=== PATIENT | male | born 1980 | race Caucasian/White ===

== ENCOUNTER 2020-09-10 02:42 | Inpatient (IN) | payer MEDICAID, SELFPAY ==
[2020-09-10] VITALS (8 sets, daily range): BP systolic 129–174; BP diastolic 72–95; PULSE 66–103; RESP 16–22; TEMP 36.5–37; O2SAT 95–97; BMI 27.1; BMI 26.5
[2020-09-10 03:13] LABS: Absolute Lymphocyte Count 2.68 X10^3/uL (0.83-4.51); Absolute Neutrophil Count 6.1 X10^3/uL (2.0-7.7); Basophil# 0.09 X10^3/uL; Basophil% 0.9 % (0-1); Eosinophil# 0.13 X10^3/uL; Eosinophils% 1.3 % (0-5); Hematocrit 44.3 % (40-54); Hemoglobin 15.1 g/dL (13.0-16.5); Lymphocyte # 2.68 X10^3/ul (0.83-4.51); Lymphocyte % 27.8 % (19-41); Mean Corp Hgb Conc 34.1 g/dL (32-36); Mean Corpuscular Hgb 31.5 pg (27.0-32.0); Mean Corpuscular Volume 92.5 fL (80-94); Mean Platelet Vol. 9.2 fl (6.2-12.0); Monocyte# 0.58 X10^3/uL; NRBC Flagged by Analyzer 0 % (0-5); Neutrophil # 6.13 X10^3/uL (2.7-7.7); Neutrophil % 63.8 % (47-70); Platelet Count 258 K/mm3 (150-450); RBC Distribution Width CV 13.4 % (11.6-14.6); RBC Distribution Width SD 46.1 fl (35.1-43.9); Red Blood Count 4.79 M/mm3 (4.6-6.2); White Blood Count 9.6 K/mm3 (4.4-11.0)
--- NOTE | 2020-09-10 03:19 | ED.RN ---
PT ADMITTED TO BEING IN THE PROGRAM FOR 7 MONTHS AND WAS SOBER FOR THE FIRST COUPLE OF MONTHS, PT THEN STATED HE STARTED DRINKING ETOH WHILE AT THE [facility] HOUSE, THEN LEFT FOR A HOTEL AND DRANK NONSTOP.
--- NOTE | 2020-09-10 03:24 | EX.ED.SAOD ---
HPI History of Present Illness Chief Complaint: Substance Abuse Informant: patient Narrative Narrative: Patient is a 40-year-old male with history of alcohol abuse presenting for alcohol detox. Patient states he is on a duncan drinking least 30 beers a day plus liquor for the past 5 days. He states before that he been drinking daily for the past few months. Patient been at a nursing home house for sobriety but states he been drinking at the house for the past few months. Patient states his last drink was this afternoon. He started to have some nausea and dry heaves. He complained of slight tremors. He states he feels little confused. Patient denies any abdominal pain. He denies any drug use. He does smoke at least a pack of cigarettes a day. No other complaints at this time. PFSH PFS Medical History Alcohol abuse Home Medications NK 09/10/20 [History Last Taken Unknown] Allergy/AdvReac Type Severity Reaction Status Date / Time No Known Allergies Allergy Verified 09/10/20 02:45 Social History Smoking Status: Current every day smoker tobacco type: cigarettes ROS ROS ED Constitutional Constitutional ED: Reports sweats; Denies chills, fever(s) or malaise Eyes Eyes: Denies blurry vision or loss of vision ENT ENT ED: Denies rhinorrhea or sore throat Cardiovascular Cardiovascular: Denies chest pain or dizziness Respiratory/Chest Respiratory/Chest: Denies cough or dyspnea Gastrointestinal Gastrointestinal: Reports nausea; Denies abdominal pain or vomiting Genitourinary Genitourinary ED: Denies dysuria or hematuria Musculoskeletal Musculoskeletal: Denies arthralgias or myalgias Integumentary Denies rash or wounds Neurologic Neurologic: Reports other Details: Confusion, tremor ; Denies focal weakness or headache(s) Psychiatric Psychiatric: Denies anxiety or behavioral changes EXAM Physical Exam Const Vital Signs: 09/10/20 02:42 09/10/20 02:48 Temperature 98.4 F 98.4 F Temperature Source Temporal Temporal Pulse Rate 95 95 Respiratory Rate 22 H 22 H Blood Pressure 165/91 H 165/91 H Blood Pressure Mean 115 115 Pulse Ox 96 96 Oxygen Delivery Method Room Air Positive well nourished, well developed and no apparent distress General Appearance ED: well developed HEENT Reports normocephalic and moist mucous membranes atraumatic Nose: no nasal discharge General Ear: hearing grossly impaired External Ear: external ears normal Mouth ED: Yes moist mucous membranes abnormal Mouth: moist mucous membranes abnormal Eyes PERRL and EOMs intact bilaterally Neck full ROM, supple and no meningeal signs Chest Wall inspection of chest normal Resp normal respiratory effort and normal air movement Cardio regular rate and regular rhythm GI normal to inspection, nondistended, normoactive bowel sounds, soft to palpation and non-tender Extremity normal to inspection and full ROM Neuro oriented x3 and no focal motor deficits Neuro Narrative: Slightly tremulous on exam. Sensorium / Orientation: alert; Negative for confused Psych mental status grossly normal and thought process normal Skin no rashes or lesions noted and no wounds General Skin Exam: Negative for jaundice Lesions: no lesions Rashes: no rashes MDM MDM MDM Narrative Medical decision making narrative: Patient evaluated for alcohol withdrawal. Its been about 12 hours since his last drink. Patient is hypertensive and mildly tachycardic. He is mildly tremulous. I suspect he is an early alcohol withdrawal. He is given a dose of phenobarb in the emergency room. Screening labs are obtained and patient will be admitted to medicine service for inpatient detox. Patient is agreeable with this plan. He does understand the rules of inpatient detox. Lab Data Labs: Laboratory Results - last 24 hr 09/10/20 09/10/20 09/10/20 02:46 03:02 03:02 WBC 9.6 RBC 4.79 Hgb 15.1 Hct 44.3 MCV 92.5 MCH 31.5 MCHC 34.1 RDW Std Deviation 46.1 H RDW Coeff of Mary 13.4 Plt Count 258 MPV 9.2 Immature Gran % (Auto) 0.200 Neut % (Auto) 63.8 Lymph % (Auto) 27.8 [place] % (Auto) 6.0 Eos % (Auto) 1.3 Baso % (Auto) 0.9 Absolute Neuts (auto) 6.1 Absolute Lymphs (auto) 2.68 Nucleated RBC % 0 Sodium 138 Potassium 3.9 Chloride 102 Carbon Dioxide 27.0 Anion Gap 9 BUN 10 Creatinine 0.80 Estim Creat Clear Calc 104.83 Est GFR (MDRD) Af Amer 138 Est GFR (MDRD) Non-Af 114 BUN/Creatinine Ratio 12.4 Glucose 95 Calcium 8.6 Total Bilirubin 0.80 AST 146 H ALT 196 H Alkaline Phosphatase 84 Total Protein 7.2 Albumin 4.0 Globulin 3.2 Albumin/Globulin Ratio 1.2 Urine Opiates Screen NEGATIVE Urine Methadone Screen NEGATIVE Ur Barbiturates Screen NEGATIVE Ur Phencyclidine Scrn NEGATIVE Ur Amphetamines Screen NEGATIVE U Methamphetamin-MDMA NEGATIVE U Benzodiazepines Scrn NEGATIVE Urine Cocaine Screen NEGATIVE U Cannabinoids Screen NEGATIVE Ur Drug Screen Comment Ethyl Alcohol 09/10/20 03:02 WBC RBC Hgb Hct MCV MCH MCHC RDW Std Deviation RDW Coeff of Mary Plt Count MPV Immature Gran % (Auto) Neut % (Auto) Lymph % (Auto) [place] % (Auto) Eos % (Auto) Baso % (Auto) Absolute Neuts (auto) Absolute Lymphs (auto) Nucleated RBC % Sodium Potassium Chloride Carbon Dioxide Anion Gap BUN Creatinine Estim Creat Clear Calc Est GFR (MDRD) Af Amer Est GFR (MDRD) Non-Af BUN/Creatinine Ratio Glucose Calcium Total Bilirubin AST ALT Alkaline Phosphatase Total Protein Albumin Globulin Albumin/Globulin Ratio Urine Opiates Screen Urine Methadone Screen Ur Barbiturates Screen Ur Phencyclidine Scrn Ur Amphetamines Screen U Methamphetamin-MDMA U Benzodiazepines Scrn Urine Cocaine Screen U Cannabinoids Screen Ur Drug Screen Comment Ethyl Alcohol 56.0 Discharge Plan Dx/Rx/DC Orders Clinical Impression: Alcohol dependence Disposition Disposition: Acute Care Hospital [facility] Discharge Date/Time: 09/10/20 04:24
[2020-09-10 03:51] LABS: ALB/GLOB Ratio 1.2 RATIO (0.9-2.4); AST(SGOT) 146 U/L (15-37); Alanine Aminotransfer ALT/SGPT 196 U/L (16-61); Alkaline Phosphatase 84 U/L (45-117); Anion Gap 9 (5-15); BUN 10 mg/dL (7-18); BUN/Creat Ratio 12.4 RATIO (10-20); Calcium,Total 8.6 mg/dL (8.5-10.1); Chloride 102 mmol/L (98-107); EST Glomerular Filtration Rate 114 mL/min (>60); Est Glom Filt Rate - Afr Amer 138 mL/min (>60); Estimated Creatinine Clearance 104.83 ml/min; Globulin 3.2 g/dL (2.2-4.2); Glucose 95 mg/dL (74-106); Potassium 3.9 mmol/L (3.5-5.1); Protein, Total 7.2 g/dL (6.4-8.2); Sodium Level 138 mmol/L (136-145)
--- NOTE | 2020-09-10 04:02 | PCM.HP.STD ---
[facility] - General General Date of Admission: 09/10/20 Date of Service: 09/10/20 Chief Complaint: Requesting admission for acute alcohol withdrawal. HPI Narrative OSVALDO VASQUES, is a 40 M with past medical history as mentioned below presented to the emergency room requesting admission for acute alcohol withdrawal for medical stabilization. Patient stated that he has been drinking at least 50 beers a day for the last 5 days. Before that, he was at [facility] but he has been drinking at the house to for the past several months. He mentioned that his last drink was yesterday afternoon. He complained of nausea and dry heaves, no associated abdominal pain. He complained of tremors and anxiety as well as restlessness. He denied abdominal pain. He denied use of recreational drugs. In the emergency department, blood pressure was like elevated, other vital signs were stable. Routine blood work was unremarkable. LFT revealed slightly elevated liver transaminases, bilirubin and alk phos are normal. Urine drug screen is pending. Blood alcohol level is 56. Patient is being admitted for acute alcohol withdrawal for medical stabilization. [facility] Medical History Alcohol abuse Allergy/AdvReac Type Severity Reaction Status Date / Time No Known Allergies Allergy Verified 09/10/20 02:45 no significant family history no surgical history Social History Smoking Status: Current every day smoker tobacco type: cigarettes ROS Constitutional Constitutional: Reports malaise; Denies anorexia, chills, fatigue or fever(s) Eyes Eyes: Denies blurry vision, change in eye color, change in vision, double vision or eye pain ENT HEENT: Denies ear pain, epistaxis, headache(s), nasal congestion, post nasal drip or sore throat Cardiovascular Cardiovascular: Denies chest pain, dyspnea on exertion, edema, lightheadedness, palpitations or syncope Respiratory/Chest Respiratory/Chest: Denies cough, dyspnea, hemoptysis, productive cough, shortness of breath at rest, shortness of breath with exertion or wheezing Gastrointestinal Gastrointestinal: Reports nausea; Denies abdominal pain, constipation, diarrhea, hematemesis, hematochezia, melena or vomiting Genitourinary Genitourinary: Denies burning urination, dysuria, hematuria, urinary hesitancy or urinary urgency Musculoskeletal Musculoskeletal: Denies arthralgias, back pain, joint pain, joint swelling, myalgias or neck pain Neurologic Neurologic: Reports tremor(s); Denies confusion, dizziness, focal weakness, headache(s), numbness, paresthesias, seizures or tingling Psychiatric Psychiatric: Denies anxiety, depression, hallucinations, homicidal ideation or suicidal ideation Endocrine Endocrinology: Denies change in body appearance, cold intolerance, heat intolerance, polydipsia or polyuria Hematologic/Lymphatic Hematologic/Lymphatic: Denies easy bleeding, easy bruising or lymphadenopathy Allergic/Immunologic Allergic/Immunologic: Denies itchy eyes, rhinitis, throat swelling, tongue swelling, hives, urticaria or wheezing Vital Signs Vital Signs Vital Signs: 09/10/20 02:42 09/10/20 02:48 Temperature 98.4 F 98.4 F Temperature Source Temporal Temporal Pulse Rate 95 95 Respiratory Rate 22 H 22 H Blood Pressure 165/91 H 165/91 H Blood Pressure Mean 115 115 Pulse Ox 96 96 Oxygen Delivery Method Room Air Weight Weight: 158 lb 8.198 oz Body Mass Index (BMI) 27.1 Physical Exam Const alert, oriented x3, no apparent distress and no limitations General Appearance: cooperative, comfortable and well kempt HEENT normocephalic, head/scalp atraumatic and moist oral mucous membranes Head and Scalp: normocephalic and atraumatic Eyes PERRL, EOMs intact bilaterally, conjunctivae normal and no scleral icterus General Eye: normal appearance of both eyes Periorbital: periorbital findings normal Neck no lymphadenopathy, supple, no meningeal signs, no JVD and no carotid bruits General: trachea midline Thyroid: thyroid normal Resp normal respiratory effort, normal air movement and clear to auscultation bilaterally Auscultation: Negative for crackles, rales, rhonchi or wheezes Cardio regular rate, regular rhythm, S1 normal heart sound, S2 normal heart sound, no murmurs and no JVD Peripheral Pulses: pulses 2+ throughout GI normal to inspection, nondistended, normoactive bowel sounds, soft to palpation, non-tender and non-distended; Negative for hepatosplenomegaly Auscultation: normoactive bowel sounds Extremity normal to inspection, full ROM and no clubbing, cyanosis or edema Skin no rashes or lesions noted, no wounds and no petechiae Neuro oriented x3, CN's II-XII intact bilaterally and moves all extremities Sensorium / Orientation: alert Speech: speech normal Motor Exam: strength 5/5 throughout Psych mental status grossly normal, affect normal and denies hallucinations Lab / Micro Data Result Diagrams: 09/10/20 03:02 09/10/20 03:02 Labs: Laboratory Results - last 24 hr 09/10/20 09/10/20 09/10/20 02:46 03:02 03:02 WBC 9.6 RBC 4.79 Hgb 15.1 Hct 44.3 MCV 92.5 MCH 31.5 MCHC 34.1 RDW Std Deviation 46.1 H RDW Coeff of Mary 13.4 Plt Count 258 MPV 9.2 Immature Gran % (Auto) 0.200 Neut % (Auto) 63.8 Lymph % (Auto) 27.8 [place] % (Auto) 6.0 Eos % (Auto) 1.3 Baso % (Auto) 0.9 Absolute Neuts (auto) 6.1 Absolute Lymphs (auto) 2.68 Nucleated RBC % 0 Sodium 138 Potassium 3.9 Chloride 102 Carbon Dioxide 27.0 Anion Gap 9 BUN 10 Creatinine 0.80 Estim Creat Clear Calc 104.83 Est GFR (MDRD) Af Amer 138 Est GFR (MDRD) Non-Af 114 BUN/Creatinine Ratio 12.4 Glucose 95 Calcium 8.6 Total Bilirubin 0.80 AST 146 H ALT 196 H Alkaline Phosphatase 84 Total Protein 7.2 Albumin 4.0 Globulin 3.2 Albumin/Globulin Ratio 1.2 Ur Drug Screen Comment Ethyl Alcohol 09/10/20 03:02 WBC RBC Hgb Hct MCV MCH MCHC RDW Std Deviation RDW Coeff of Mary Plt Count MPV Immature Gran % (Auto) Neut % (Auto) Lymph % (Auto) [place] % (Auto) Eos % (Auto) Baso % (Auto) Absolute Neuts (auto) Absolute Lymphs (auto) Nucleated RBC % Sodium Potassium Chloride Carbon Dioxide Anion Gap BUN Creatinine Estim Creat Clear Calc Est GFR (MDRD) Af Amer Est GFR (MDRD) Non-Af BUN/Creatinine Ratio Glucose Calcium Total Bilirubin AST ALT Alkaline Phosphatase Total Protein Albumin Globulin Albumin/Globulin Ratio Ur Drug Screen Comment Ethyl Alcohol 56.0 Assessment & Plan Assessment/Plan (1) Tobacco abuse: (2) Alcohol dependence: (3) Acute hyperactive alcohol withdrawal delirium: (4) Elevated LFTs: PLAN: This is a 40 years old male patient presented to the emergency room requesting admission for acute alcohol withdrawal for medical stabilization. #1 acute alcohol withdrawal: Admit to MedSurg floor, initiate alcohol withdrawal protocol with tapering phenobarbital, thiamine folic acid supplement, as needed Bentyl, gabapentin, Vistaril, Imodium, Loperamide, Zofran and trazodone, consult 180 program. #2 elevated LFT: This is likely due to alcoholic hepatitis. Bilirubin and alk phos are normal. Plan to monitor. #3 tobacco abuse: NicoDerm patch. #4 DVT prophylaxis: Low risk patient, no prophylaxis indicated. This note was generated with [employer] dictation software. It may contain incorrect words, spelling, and punctuation that were not noted in checking the note before signing. Visit Charges Inpatient E&M: 41178 Init Hosp L2
[2020-09-10] MEDS: Phenobarbital 32.4 MG Tablet 97.2 MG PO (04:11)
[2020-09-10 04:13] LABS: Amphetamine Urine VISTA NEGATIVE (<1000 ng/mL); Barbiturate Urine VISTA NEGATIVE (< 200 ng/mL); Benzodiazepine Urine VISTA NEGATIVE (< 200 ng/mL); Cocaine Urine VISTA NEGATIVE (< 300 ng/mL); Ecstacy Urine VISTA NEGATIVE (< 500 ng/mL); Methadone Urine VISTA NEGATIVE (< 300 ng/mL); PCP Urine VISTA NEGATIVE (< 25 ng/mL); THC Urine VISTA NEGATIVE (< 50 ng/mL); Vista UDS pH Range 5
[2020-09-10] MEDS: hydrOXYzine PAM 25 MG Capsule 50 MG PO (05:19)
[2020-09-10] MEDS: Dicyclomine 10 MG Capsule 20 MG PO (05:19)
[2020-09-10] MEDS: Gabapentin 300 MG Capsule PO (05:19)
[2020-09-10] MEDS: Phenobarbital 32.4 MG Tablet PO ×4 (09:40→20:45)
[2020-09-10] MEDS: Folic Acid 1 MG Tablet PO (09:41)
[2020-09-10] MEDS: Thiamine Hydrochloride 100 MG Tablet PO (09:41)
--- NOTE | 2020-09-10 12:06 | CASEMGMT ---
Social Work Note Pt is RAMP pt. Pt is also self-pay. SW in to speak with pt. SW introduced self and role at [facility]. Pt confirms he has no insurance, states he was working at [employer] up until 5 days ago. Pt states [employer] offers insurance but he was not on their insurance but he is able to get their insurance. Pt states he hasn't applied for Medicaid. SW provided pt with financial resources including Medicaid Application, RX assistance programs, HCAP application, Rx good assist and Prescription Hope. FLACO unable to provide pt with [facility] resources as pt is not a resident of [facility]. FLACO spoke with Chepe from [facility]. Plan is for pt to direct admit to [facility] Sunday where staff will assist pt in getting Medicaid Application completed. Anette Vaughan MD PEDIATRIC ALLERGIST, BURN OUT SCARFING OPERATOR
--- NOTE | 2020-09-10 12:25 | ADDICTION ---
This account underwriter met with PT to conduct ASAM, MSE, AMMY, AUDIT assessments and to plan for d/c. PT A+Ox4 and participated actively. All assessments completed, faxed to [facility] and placed in PT's chart. PT plans to f/u with individual counselor for an assessment to be admitted to [facility] for residential treatment services. PT indicated a need for transportation post d/c from [facility]. This account underwriter set up transportation through [facility] senior it specialist.
--- NOTE | 2020-09-10 13:38 | PN.HOSP_ITS ---
Subjective Subjective Feeling tired and anxious. Objective Data Objective Data Vital Signs: Vital Signs Temp Pulse Resp BP Pulse Ox 37.0 C 80 18 149/72 H 95 09/10/20 12:44 09/10/20 12:44 09/10/20 12:44 09/10/20 12:44 09/10/20 12:44 Oxygen Delivery Method Room Air Weight: 70.1 kg Body Mass Index (BMI) 26.5 Lab / Micro Data Attestation: I reviewed the patient's lab results. Result Diagrams: 09/10/20 03:02 09/10/20 03:02 Labs: Laboratory Results - last 24 hr 09/10/20 09/10/20 09/10/20 02:46 03:02 03:02 WBC 9.6 RBC 4.79 Hgb 15.1 Hct 44.3 MCV 92.5 MCH 31.5 MCHC 34.1 RDW Std Deviation 46.1 H RDW Coeff of Mary 13.4 Plt Count 258 MPV 9.2 Immature Gran % (Auto) 0.200 Neut % (Auto) 63.8 Lymph % (Auto) 27.8 [place] % (Auto) 6.0 Eos % (Auto) 1.3 Baso % (Auto) 0.9 Absolute Neuts (auto) 6.1 Absolute Lymphs (auto) 2.68 Nucleated RBC % 0 Sodium 138 Potassium 3.9 Chloride 102 Carbon Dioxide 27.0 Anion Gap 9 BUN 10 Creatinine 0.80 Estim Creat Clear Calc 104.83 Est GFR (MDRD) Af Amer 138 Est GFR (MDRD) Non-Af 114 BUN/Creatinine Ratio 12.4 Glucose 95 Calcium 8.6 Total Bilirubin 0.80 AST 146 H ALT 196 H Alkaline Phosphatase 84 Total Protein 7.2 Albumin 4.0 Globulin 3.2 Albumin/Globulin Ratio 1.2 Urine Opiates Screen NEGATIVE Urine Methadone Screen NEGATIVE Ur Barbiturates Screen NEGATIVE Ur Phencyclidine Scrn NEGATIVE Ur Amphetamines Screen NEGATIVE U Methamphetamin-MDMA NEGATIVE U Benzodiazepines Scrn NEGATIVE Urine Cocaine Screen NEGATIVE U Cannabinoids Screen NEGATIVE Ur Drug Screen Comment Ethyl Alcohol 09/10/20 03:02 WBC RBC Hgb Hct MCV MCH MCHC RDW Std Deviation RDW Coeff of Mary Plt Count MPV Immature Gran % (Auto) Neut % (Auto) Lymph % (Auto) [place] % (Auto) Eos % (Auto) Baso % (Auto) Absolute Neuts (auto) Absolute Lymphs (auto) Nucleated RBC % Sodium Potassium Chloride Carbon Dioxide Anion Gap BUN Creatinine Estim Creat Clear Calc Est GFR (MDRD) Af Amer Est GFR (MDRD) Non-Af BUN/Creatinine Ratio Glucose Calcium Total Bilirubin AST ALT Alkaline Phosphatase Total Protein Albumin Globulin Albumin/Globulin Ratio Urine Opiates Screen Urine Methadone Screen Ur Barbiturates Screen Ur Phencyclidine Scrn Ur Amphetamines Screen U Methamphetamin-MDMA U Benzodiazepines Scrn Urine Cocaine Screen U Cannabinoids Screen Ur Drug Screen Comment Ethyl Alcohol 56.0 Physical Exam Const alert Resp normal respiratory effort, no use of accessory muscles and clear to auscultation bilaterally Cardio regular rate, regular rhythm, S1 normal heart sound and S2 normal heart sound GI normal to inspection, nondistended, normoactive bowel sounds, non-tender and non-distended Assessment & Plan Assessment/Plan (1) Alcohol dependence: PLAN: 1. acute alcohol withdrawal * continue phenobarbital taper * continue medica tmt for other somatic complaints. * plan for pt to go [facility] on 09/14/2020 at 0900 2. VTE prophylaxis: low risk. Visit Charges Inpatient E&M: 70756 Subs Hosp L2
[2020-09-11] VITALS (7 sets, daily range): BP systolic 123–155; BP diastolic 63–86; PULSE 70–84; RESP 16–18; TEMP 36.4–37.1; O2SAT 95–99
[2020-09-11] MEDS: Phenobarbital 32.4 MG Tablet PO ×6 (00:40→19:28)
[2020-09-11] MEDS: Thiamine Hydrochloride 100 MG Tablet PO (09:11)
[2020-09-11] MEDS: Folic Acid 1 MG Tablet PO (09:11)
--- NOTE | 2020-09-11 13:10 | PN.HOSP_ITS ---
Subjective Subjective No hallucinations. No tremors. Feels groggy from phenobarbital. Objective Data Objective Data Vital Signs: Vital Signs Temp Pulse Resp BP Pulse Ox 36.7 C 84 18 124/77 H 98 09/11/20 09:13 09/11/20 09:13 09/11/20 09:13 09/11/20 09:13 09/11/20 09:13 Oxygen Delivery Method Room Air Weight: 70.1 kg Body Mass Index (BMI) 26.5 Intake & Output: Intake and Output for Last 24 Hours 09/09/20 09/10/20 09/11/20 23:59 23:59 23:59 Intake Total 620 / 1420 1480 / 1480 Balance 620 / 1420 1480 / 1480 Lab / Micro Data Result Diagrams: 09/10/20 03:02 09/10/20 03:02 Physical Exam Const alert HEENT Head and Scalp: normocephalic Resp normal respiratory effort and clear to auscultation bilaterally Cardio regular rate, regular rhythm, S1 normal heart sound and S2 normal heart sound GI normal to inspection, nondistended, normoactive bowel sounds, non-tender and non-distended Assessment & Plan Assessment/Plan (1) Alcohol dependence: QUALIFIERS: Substance use status: uncomplicated Qualified Code(s): F10.20 - Alcohol dependence, uncomplicated PLAN: 1. acute alcohol withdrawal * continue phenobarbital taper * continue medica tmt for other somatic complaints. * plan for pt to go [facility] on 09/14/2020 at 0900 2. VTE prophylaxis: low risk. Visit Charges Inpatient E&M: 50697 Subs Hosp L1
[2020-09-11] MEDS: Nicotine Polacrilex 2 MG GUM PO (19:51)
[2020-09-12 00:57] VITALS: BP 128/65; PULSE 97; RESP 16; TEMP 36.6; O2SAT 98
[2020-09-12] MEDS: Phenobarbital 32.4 MG Tablet PO ×6 (00:58→23:35)
[2020-09-12 04:28] VITALS: BP 118/65; PULSE 56; RESP 16; TEMP 36.6; O2SAT 97
[2020-09-12 08:46] VITALS: BP 127/64; PULSE 75; RESP 18; TEMP 36.7; O2SAT 97
[2020-09-12] MEDS: Folic Acid 1 MG Tablet PO (08:59)
[2020-09-12] MEDS: Thiamine Hydrochloride 100 MG Tablet PO (08:59)
[2020-09-12 10:00] VITALS: BP 127/64; PULSE 75; RESP 18; TEMP 36.7; O2SAT 75
--- NOTE | 2020-09-12 12:04 | PN.HOSP_ITS ---
Subjective Subjective No events overnight. Patient otherwise feels well. No tremors. Objective Data Objective Data Vital Signs: Vital Signs Temp Pulse Resp BP Pulse Ox 36.7 C 75 18 127/64 H 97 09/12/20 08:46 09/12/20 08:46 09/12/20 08:46 09/12/20 08:46 09/12/20 08:46 Oxygen Delivery Method Room Air Weight: 70.1 kg Body Mass Index (BMI) 26.5 Intake & Output: Intake and Output for Last 24 Hours 09/10/20 09/11/20 09/12/20 23:59 23:59 23:59 Intake Total 620 / 1420 1959 Balance 620 / 1420 1959 Lab / Micro Data Result Diagrams: 09/10/20 03:02 09/10/20 03:02 Physical Exam Const alert and oriented x3 Constitutional Narrative: Up in chair. No respiratory distress. No conversational dyspnea. No diaphoresis. Psych affect normal Assessment & Plan Assessment/Plan (1) Alcohol dependence: QUALIFIERS: Substance use status: uncomplicated Qualified Code(s): F10.20 - Alcohol dependence, uncomplicated PLAN: 1. acute alcohol withdrawal * continue phenobarbital taper through today and then discontinue. I do not has been any worsening withdrawal symptoms. * continue medical tmt for other somatic complaints. * plan for pt to go [facility] on 09/14/2020 at 0900 * After patient has completed his phenobarbital, I feel the patient can safely walk through the hallways. Patient advised not to leave the floor and if he does so he would be leaving AGAINST MEDICAL ADVICE and would not be re admitted. He expressed understanding for that. And told him once he is cleared his phenobarbital that he can have his box is open. I feel patient is a low risk of abusing these permissions and he seems very engaged in his recovery. * Patient will need to stay until the first as he is from a alf house and apparently there was a words exchanged with the litharge mill operator of the house so the patient would not be really able to return there. The patient will stay until the first where he can enroll in the [facility] residential program. 2. VTE prophylaxis: low risk. Visit Charges Inpatient E&M: 63957 Subs Hosp L1
[2020-09-12 14:40] VITALS: BP 138/76; PULSE 71; RESP 18; TEMP 36.7; O2SAT 97
[2020-09-12 20:19] VITALS: BP 140/72; PULSE 78; RESP 16; TEMP 37; O2SAT 97
[2020-09-13] MEDS: Phenobarbital 32.4 MG Tablet PO ×4 (04:07→21:41)
[2020-09-13] MEDS: Thiamine Hydrochloride 100 MG Tablet PO (07:36)
[2020-09-13] MEDS: Folic Acid 1 MG Tablet PO (07:37)
[2020-09-13 08:39] VITALS: BP 122/69; PULSE 63; RESP 18; TEMP 36.6; O2SAT 98
--- NOTE | 2020-09-13 08:57 | PCM.PN.HOSP ---
Subjective Subjective Patient is a 40-year-old gentleman with history of alcohol dependence presented with acute alcohol withdrawal Objective Data Objective Data Vital Signs: Vital Signs Temp Pulse Resp BP Pulse Ox 97.8 F 63 18 122/69 H 98 09/13/20 08:39 09/13/20 08:39 09/13/20 08:39 09/13/20 08:39 09/13/20 08:39 Oxygen Delivery Method Room Air Weight: 70.1 kg Body Mass Index (BMI) 26.5 Intake & Output: Intake and Output for Last 24 Hours 09/11/20 09/12/20 09/13/20 23:59 23:59 23:59 Intake Total 1959 450 / 950 800 / 800 Balance 1959 450 / 950 800 / 800 Lab / Micro Data Result Diagrams: 09/10/20 03:02 09/10/20 03:02 Physical Exam Narrative GENERAL: cooperative HEENT: Atraumatic; EYES; Anicteric, Normal Conjunctiva NECK; supple, normal thyroid, RESPIRATORY: Diminished to auscultation CARDIOVASCULAR: Regular S1 S2, GI: soft, normoactive bowel sounds, : No Renal angle tenderness; EXTREMITIES: No edema, no clubbing, MUSCULOSKELETAL: no muscle waisting NEURO: Awake; no lateralizing signs. SKIN: No Rash PSYCH; Flat affect Assessment & Plan Assessment/Plan (1) Alcohol dependence: QUALIFIERS: Substance use status: uncomplicated Qualified Code(s): F10.20 - Alcohol dependence, uncomplicated PLAN: Patient is a 40-year-old gentleman with history of alcohol dependence presented with acute alcohol withdrawal 1. Acute alcohol withdrawal -patient has been managed with phenobarb taper plan is for patient to be discharged to [facility] on 09/14/2020 2. DVT prophylaxis ?Low risk did encourage ambulation Visit Charges Inpatient E&M: 19896 Subs Hosp L1
[2020-09-13] MEDS: Nicotine Polacrilex 2 MG GUM PO (10:30)
[2020-09-13 16:00] VITALS: BP 140/74; BP 141/78; PULSE 72; PULSE 78; RESP 18; TEMP 36.8; O2SAT 98
[2020-09-13 21:40] VITALS: BP 152/73; PULSE 83; RESP 16; TEMP 36.7; O2SAT 99
[2020-09-14] MEDS: traZODone 100 MG Tablet PO (00:55)
[2020-09-14] MEDS: hydrOXYzine PAM 25 MG Capsule 50 MG PO (00:55)
[2020-09-14] MEDS: Phenobarbital 32.4 MG Tablet PO (04:00)
[2020-09-14 04:10] VITALS: BP 109/53; PULSE 71; RESP 18; TEMP 36.8; O2SAT 99
--- NOTE | 2020-09-14 07:24 | PCM.DC.SUM ---
Providers Date of Admission: 09/10/20 Primary Care Physician: Jeri Primary Care Phys Reason For Visit: ACUTE ALCOHOL WITHDRAWL Diagnosis Discharge Diagnosis (1) Alcohol dependence: Status: Chronic Code(s): F10.20 - Alcohol dependence, uncomplicated Qualifiers: Substance use status: uncomplicated Qualified Code(s): F10.20 - Alcohol dependence, uncomplicated Medications at Discharge Home Medications NK 09/10/20 Hospital Course Operations None Summary of Care Provided Minutes Spent on Discharge: 25 Hospital Course: 1. Acute alcohol withdrawal -patient has been managed with phenobarb taper plan is for patient to be discharged to 180 on 09/14/2020 2. DVT prophylaxis ?Low risk did encourage ambulation Physical Exam Const alert General Appearance: cooperative Resp normal respiratory effort Cardio regular rate and regular rhythm ABG / Lab / Microbiology Data Result Diagrams: 09/10/20 03:02 09/10/20 03:02 D/C Instructions Discharge Diet: No restrictions Discharge Activity: Return to Normal Activity Call your doctor if you observe: Fever of 101 or Higher, Shortness of breath, Fainting spells and Chest pain Meaningful Use Info Meaningful Use Diagnoses (Choose all that apply): None applicable Discharge Plan Admission Admit Date/Time: 09/10/20 04:01 Primary Reason for Your Visit: Acute alcohol withdrawal Attending Provider: Elvin Gaytan Primary Care Provider: Care Physician,Jeri Primary Discharge Orders/Prescriptions Prescriptions: No Action NK RF: 0 Referrals / Follow Up: Care Physician,No Primary [Primary Care Provider] - Disposition Disposition (needs filled in before D/C Order can be placed): Home, self care Visit Charges Inpatient E&M: 71990 Disch Hosp
--- NOTE | 2020-09-14 07:26 | PCM.DC ---
Discharge Instructions Diet Discharge Diet: No restrictions Activity Discharge Activity: Return to Normal Activity Dressing / Incision Call your doctor if you observe: Fever of 101 or Higher, Shortness of breath, Fainting spells and Chest pain Follow Up Care Test Results: Test results from this visit will be discussed in further detail at your follow-up appointment, if applicable. Discharge Plan Admission Admit Date/Time: 09/10/20 04:01 Primary Reason for Your Visit: Acute alcohol withdrawal Attending Provider: Elvin Gaytan Primary Care Provider: Care Physician,No Primary Discharge Orders/Prescriptions Prescriptions: No Action NK RF: 0 Referrals / Follow Up: Care Physician,No Primary [Primary Care Provider] - Disposition Disposition (needs filled in before D/C Order can be placed): Home, self care
[2020-09-14 09:06] VITALS: BP 111/70; PULSE 66; RESP 18; TEMP 37.1; O2SAT 96
[2020-09-14] MEDS: Thiamine Hydrochloride 100 MG Tablet PO (09:09)
[2020-09-14] MEDS: Folic Acid 1 MG Tablet PO (09:09)
== END 2020-09-14 09:30 | disposition home or self-care (01) | DRG 897 ==
LOC: ED 03:51 → MS3 04:04
PROVIDERS: Admitting Provider Hospitalist; Emergency Provider Emergency Medicine; Visit Provider Internal Medicine
DX: F10.239 Alcohol dependence with withdrawal, unspecified (principal); F17.210 Nicotine dependence, cigarettes, uncomplicated; Y90.2 Blood alcohol level of 40-59 mg/100 ml; R79.89 Other specified abnormal findings of blood chemistry; K70.10 Alcoholic hepatitis without ascites
CPT/HCPCS: 36415; 80053; 80307; 82077; 85025; 99283

== ENCOUNTER 2022-11-13 17:43 | Inpatient (IN) | payer MEDICAID, SELFPAY ==
[2022-11-13 17:45] VITALS: BP 140/94; PULSE 118; RESP 18; TEMP 35.8; O2SAT 98; BMI 23.3
[2022-11-13 19:37] LABS: Absolute Lymphocyte Count 2.22 X10^3/uL (0.83-4.51); Absolute Neutrophil Count 4.3 X10^3/uL (2.0-7.7); Basophil# 0.06 X10^3/uL; Basophil% 0.9 % (0-1); Eosinophil# 0.03 X10^3/uL; Eosinophils% 0.4 % (0-5); Hematocrit 40.1 % (40-54); Hemoglobin 13.9 g/dL (13.0-16.5); Lymphocyte # 2.22 X10^3/ul (0.83-4.51); Lymphocyte % 31.9 % (19-41); Mean Corp Hgb Conc 34.7 g/dL (32-36); Mean Corpuscular Hgb 32.9 pg (27.0-32.0); Mean Corpuscular Volume 94.8 fL (80-94); Mean Platelet Vol. 9.4 fl (6.2-12.0); Monocyte# 0.28 X10^3/uL; NRBC Flagged by Analyzer 0 % (0-5); Neutrophil # 4.34 X10^3/uL (2.7-7.7); Neutrophil % 62.5 % (47-70); Platelet Count 194 K/mm3 (150-450); RBC Distribution Width CV 11.9 % (11.6-14.6); RBC Distribution Width SD 41.5 fl (35.1-43.9); Red Blood Count 4.23 M/mm3 (4.6-6.2)
[2022-11-13 19:40] VITALS: BP 140/94; PULSE 118; RESP 18; TEMP 35.8; O2SAT 98
--- NOTE | 2022-11-13 19:43 | EX.ED.SAOD ---
HPI History of Present Illness Chief Complaint: ETOH Intox Informant: patient Narrative Narrative: Patient states he has been through detox before, states he fell off the wagon 1 or 2 years ago and has been drinking heavily ever since, presenting for detox last drink was a couple hours ago, drinks 24 beers per day or more, and states that he needs to be detoxed so that he can get his life together, hold a job and or a girlfriend, he denies any physical complaints right now or suicidality. [facility] Medical History (Updated 11/13/22 @ 19:[address] Rodrigo Urbano MD) Alcoholism Home Medications NK 11/13/22 [History Last Taken Unknown] Allergy/AdvReac Type Severity Reaction Status Date / Time No Known Allergies Allergy Verified 11/13/22 17:45 Social History Smoking Status: Current every day smoker tobacco type: cigarettes ROS ROS ED Constitutional Constitutional ED: Denies chills or fever(s) Eyes Eyes: Denies change in vision or diplopia ENT ENT ED: Denies rhinorrhea or sore throat Cardiovascular Cardiovascular: Denies chest pain or palpitations Respiratory/Chest Respiratory/Chest: Denies cough or dyspnea Gastrointestinal Gastrointestinal: Denies abdominal pain, diarrhea, nausea or vomiting Genitourinary Genitourinary ED: Denies dysuria or hematuria Musculoskeletal Musculoskeletal: Denies back pain or neck pain Integumentary Denies abscess or rash Neurologic Neurologic: Denies headache(s), paresthesias or weakness Psychiatric Psychiatric: Denies anxiety or suicidal thoughts EXAM Physical Exam Const Vital Signs: 11/13/22 17:45 11/13/22 19:40 Temperature 96.4 F L 96.4 F L Temperature Source Temporal Temporal Pulse Rate 118 H 118 H Respiratory Rate 18 18 Blood Pressure 140/94 H 140/94 H Blood Pressure Mean 109 109 Blood Pressure Source Monitor Blood Pressure Position Sitting Blood Pressure Location Right Arm Pulse Ox 98 98 Oxygen Delivery Method Room Air Room Air Positive well nourished and well developed General Appearance ED: well developed and NAD HEENT Reports moist mucous membranes normocephalic and atraumatic Eyes PERRL and EOMs intact bilaterally Neck full ROM and supple Resp normal respiratory effort and clear to auscultation bilaterally Cardio regular rate, regular rhythm and no murmurs GI non-tender and non-distended Auscultation: normoactive bowel sounds Palpation: soft Back/Spine no CVA tenderness General Back: other FROM Extremity normal to inspection General Extremety ED: Negative for edema, pulses abnormal or tenderness General Extremity: Negative for edema or pulses abnormal Neuro oriented x3, CN's II-XII intact bilaterally and no sensory deficits noted Sensorium / Orientation: awake and alert Motor Exam: strength 5/5 throughout Skin no rashes or lesions noted and no wounds MDM MDM MDM Narrative Medical decision making narrative: Labs obtained and discussed with hospitalist for admission for detox. Patient clinically and hemodynamically stable and not in withdrawal, intoxicated at this time. Lab Data Attestation: I reviewed the patient's lab results. Labs: Laboratory Results - last 24 hr 11/13/22 19:20 WBC 7.0 RBC 4.23 L Hgb 13.9 Hct 40.1 MCV 94.8 H MCH 32.9 H MCHC 34.7 RDW Std Deviation 41.5 RDW Coeff of Mary 11.9 Plt Count 194 MPV 9.4 Immature Gran % (Auto) 0.300 Neut % (Auto) 62.5 Lymph % (Auto) 31.9 [place] % (Auto) 4.0 Eos % (Auto) 0.4 Baso % (Auto) 0.9 Absolute Neuts (auto) 4.3 Absolute Lymphs (auto) 2.22 Nucleated RBC % 0 PT 12.8 INR 1.0 Sodium 135 L Potassium 3.0 L Chloride 100 Carbon Dioxide 24.0 Anion Gap 11 BUN 4 L Creatinine 0.80 Estim Creat Clear Calc 102.78 Est GFR (MDRD) Af Amer 136 Est GFR (MDRD) Non-Af 113 BUN/Creatinine Ratio 5.0 L Glucose 93 Calcium 8.6 Total Bilirubin 0.30 AST 33 ALT 43 Alkaline Phosphatase 79 Total Protein 6.9 Albumin 4.0 Globulin 2.9 Albumin/Globulin Ratio 1.4 Urine Opiates Screen NEGATIVE Urine Methadone Screen NEGATIVE Ur Barbiturates Screen NEGATIVE Ur Phencyclidine Scrn NEGATIVE Ur Amphetamines Screen NEGATIVE MDMA (Ecstasy) Screen NEGATIVE U Benzodiazepines Scrn NEGATIVE Urine Cocaine Screen NEGATIVE U Cannabinoids Screen NEGATIVE Ur Drug Screen Comment Ethyl Alcohol 248.0 Management Discussion w/another healthcare provider: Hospitalist Discharge Plan Dx/Rx/DC Orders Clinical Impression: Alcohol dependence Disposition Disposition: Acute Care Hospital [facility]
[2022-11-13 19:45] LABS: Prothrombin Time (Protime)PT. 12.8 SECONDS (11.7-14.9)
[2022-11-13 19:49] LABS: Amphetamine Urine VISTA NEGATIVE (<1000 ng/mL); Barbiturate Urine VISTA NEGATIVE (< 200 ng/mL); Benzodiazepine Urine VISTA NEGATIVE (< 200 ng/mL); Cocaine Urine VISTA NEGATIVE (< 300 ng/mL); Ecstacy Urine VISTA NEGATIVE (< 500 ng/mL); Methadone Urine VISTA NEGATIVE (< 300 ng/mL); PCP Urine VISTA NEGATIVE (< 25 ng/mL); THC Urine VISTA NEGATIVE (< 50 ng/mL); Vista UDS pH Range 6
[2022-11-13 19:57] LABS: ALB/GLOB Ratio 1.4 RATIO (0.9-2.4); AST(SGOT) 33 U/L (15-37); Alanine Aminotransfer ALT/SGPT 43 U/L (16-61); Alkaline Phosphatase 79 U/L (45-117); Anion Gap 11 (5-15); BUN 4 mg/dL (7-18); Calcium,Total 8.6 mg/dL (8.5-10.1); Chloride 100 mmol/L (98-107); EST Glomerular Filtration Rate 113 mL/min (>60); Est Glom Filt Rate - Afr Amer 136 mL/min (>60); Estimated Creatinine Clearance 102.78 ml/min; Globulin 2.9 g/dL (2.2-4.2); Glucose 93 mg/dL (74-106); Protein, Total 6.9 g/dL (6.4-8.2); Sodium Level 135 mmol/L (136-145)
--- NOTE | 2022-11-13 20:52 | HP.PCM_ITS ---
HPI - General General Date of Admission: 11/13/22 Date of Service: 11/13/22 Chief Complaint: Alcohol withdrawal HPI Narrative OSVALDO VASQUES, is a 42 M who presents to the emergency room with expressed wish to stop drinking alcohol. Patient has a significant past medical history of alcoholism for which she has been treated and gone through rehab previously. He states he was moved [facility] sobriety living arrangement [facility] and resumed drinking as it became more permissive in that environment. Patient drinks approximately 15 beers daily and has a history of delirium tremens upon withdrawal with dry heaving. He has drank for the past 20 years. He comes from [place] and came to [place] with expressed understanding that we have better alcohol rehabilitation programs than they have in [place]. Patient denies any chest pain, shortness of breath fevers or chills at present time but does have high level of anxiety/agitation. He will be admitted for withdrawal program and placed on CIWA protocol. [facility] Medical History (Updated 11/13/22 @ 19:[address] Rodrigo Urbano MD) Alcoholism Home Medications NK 11/13/22 [History Last Taken Unknown] Allergy/AdvReac Type Severity Reaction Status Date / Time No Known Allergies Allergy Verified 11/13/22 17:45 Social History Smoking Status: Current every day smoker tobacco type: cigarettes ROS Constitutional Constitutional: Denies chills or fever(s) Eyes Eyes: Denies blurry vision ENT HEENT: Denies abnormal hearing Cardiovascular Cardiovascular: Denies chest pain Respiratory/Chest Respiratory/Chest: Denies shortness of breath at rest Gastrointestinal Gastrointestinal: Reports nausea; Denies vomiting Genitourinary Genitourinary: Denies dysuria Musculoskeletal Musculoskeletal: Denies back pain Integumentary Integumentary: Denies dry skin Neurologic Neurologic: Reports tremor(s); Denies abnormal speech Psychiatric Psychiatric: Reports anxiety Endocrine Endocrinology: Denies change in body appearance Hematologic/Lymphatic Hematologic/Lymphatic: Denies anemia Vital Signs Vital Signs Vital Signs: 11/13/22 17:45 11/13/22 19:40 Temperature 96.4 F L 96.4 F L Temperature Source Temporal Temporal Pulse Rate 118 H 118 H Respiratory Rate 18 18 Blood Pressure 140/94 H 140/94 H Blood Pressure Mean 109 109 Blood Pressure Source Monitor Blood Pressure Position Sitting Blood Pressure Location Right Arm Pulse Ox 98 98 Oxygen Delivery Method Room Air Room Air Weight Weight: 135 lb 9.6 oz Body Mass Index (BMI) 23.3 Physical Exam Const alert and oriented x3 General Appearance: cooperative HEENT normocephalic and head/scalp atraumatic Eyes PERRL Neck no lymphadenopathy Lymph Lymphatic: no lymphadenopathy noted Resp normal respiratory effort, normal air movement and clear to auscultation bilaterally Cardio regular rate, regular rhythm, S1 normal heart sound, S2 normal heart sound, no murmurs, no rub and no gallops GI normal to inspection, nondistended, normoactive bowel sounds and soft to palpation Extremity normal capillary refill Skin General Skin Exam: no breakdown Neuro CN's II-XII intact bilaterally Psych thought process normal and cooperative Mood & Affect: anxious Results Lab / Micro Data 11/13/22 19:20 11/13/22 19:20 Labs: Laboratory Results - last 24 hr 11/13/22 19:20: WBC 7.0, RBC 4.23 L, Hgb 13.9, Hct 40.1, MCV 94.8 H, MCH 32.9 H, MCHC 34.7, RDW Std Deviation 41.5, RDW Coeff of Mary 11.9, Plt Count 194, MPV 9.4, Immature Gran % (Auto) 0.300, Neut % (Auto) 62.5, Lymph % (Auto) 31.9, [place] % (Auto) 4.0, Eos % (Auto) 0.4, Baso % (Auto) 0.9, Absolute Neuts (auto) 4.3, Absolute Lymphs (auto) 2.22, Nucleated RBC % 0, PT 12.8, INR 1.0, Sodium 135 L, Potassium 3.0 L, Chloride 100, Carbon Dioxide 24.0, Anion Gap 11, BUN 4 L, Creatinine 0.80, Estim Creat Clear Calc 102.78, Est GFR (MDRD) Af Amer 136, Est GFR (MDRD) Non-Af 113, BUN/Creatinine Ratio 5.0 L, Glucose 93, Calcium 8.6, Total Bilirubin 0.30, AST 33, ALT 43, Alkaline Phosphatase 79, Total Protein 6.9, Albumin 4.0, Globulin 2.9, Albumin/Globulin Ratio 1.4, Urine Opiates Screen NEGATIVE, Urine Methadone Screen NEGATIVE, Ur Barbiturates Screen NEGATIVE, Ur Phencyclidine Scrn NEGATIVE, Ur Amphetamines Screen NEGATIVE, MDMA (Ecstasy) Screen NEGATIVE, U Benzodiazepines Scrn NEGATIVE, Urine Cocaine Screen NEGATIVE, U Cannabinoids Screen NEGATIVE, Ur Drug Screen Comment , Ethyl Alcohol 248.0 Assessment & Plan Assessment/Plan (1) Alcohol dependence: PLAN: Plan 1. Alcohol abuse and wish to rehabilitate?admit patient to general medical floor, initiate CIWA protocol contact porter sample case for discharge planning 2. DVT prophylaxis unnecessary due to patient's amatory status Charges/Coding Visit Charges Inpatient E&M: 20470 Init Hosp L2
[2022-11-13 22:27] VITALS: BP 138/98; PULSE 98; RESP 18; TEMP 36.7; O2SAT 99
[2022-11-13 23:09] VITALS: BMI 21.7
[2022-11-13 23:24] VITALS: BP 151/84; PULSE 110; RESP 16; TEMP 36.9; O2SAT 100
[2022-11-13] MEDS: LORazepam 1 MG Tablet 2 MG PO (23:45)
[2022-11-13] MEDS: Gabapentin 300 MG Capsule PO (23:48)
[2022-11-14] MEDS: traZODone 100 MG Tablet PO ×2 (00:06→21:57)
[2022-11-14 02:05] VITALS: BP 141/65; PULSE 109; RESP 22; TEMP 37.1; O2SAT 96
[2022-11-14] MEDS: Phenobarbital 32.4 MG Tablet 64.8 MG PO ×6 (02:08→21:55)
[2022-11-14] MEDS: 0.9% Saline Lock 10 ML Syringe IV (02:11)
[2022-11-14 06:08] VITALS: BP 116/72; PULSE 76; RESP 18; TEMP 36.6; O2SAT 99
--- NOTE | 2022-11-14 07:20 | PCM.PN.HOSP ---
Reason for Visit Reason for Visit: Diagnoses Alcohol dependence, uncomplicated (11/13/22) Subjective Subjective Still feels sick. Anxious to follow with program. Objective Data Objective Data Vital Signs: Vital Signs Temp Pulse Resp BP Pulse Ox O2 Del Method 36.6 C 76 18 116/72 99 Room Air 11/14/22 06:08 11/14/22 06:08 11/14/22 06:08 11/14/22 06:08 11/14/22 06:08 11/14/22 06:08 Oxygen Delivery Method Room Air Weight: 57.516 kg Body Mass Index (BMI) 21.7 Lab / Micro Data 11/13/22 19:20 11/13/22 19:20 Labs: Laboratory Results - last 24 hr 11/13/22 19:20: WBC 7.0, RBC 4.23 L, Hgb 13.9, Hct 40.1, MCV 94.8 H, MCH 32.9 H, MCHC 34.7, RDW Std Deviation 41.5, RDW Coeff of Mary 11.9, Plt Count 194, MPV 9.4, Immature Gran % (Auto) 0.300, Neut % (Auto) 62.5, Lymph % (Auto) 31.9, [place] % (Auto) 4.0, Eos % (Auto) 0.4, Baso % (Auto) 0.9, Absolute Neuts (auto) 4.3, Absolute Lymphs (auto) 2.22, Nucleated RBC % 0, PT 12.8, INR 1.0, Sodium 135 L, Potassium 3.0 L, Chloride 100, Carbon Dioxide 24.0, Anion Gap 11, BUN 4 L, Creatinine 0.80, Estim Creat Clear Calc 102.78, Est GFR (MDRD) Af Amer 136, Est GFR (MDRD) Non-Af 113, BUN/Creatinine Ratio 5.0 L, Glucose 93, Calcium 8.6, Total Bilirubin 0.30, AST 33, ALT 43, Alkaline Phosphatase 79, Total Protein 6.9, Albumin 4.0, Globulin 2.9, Albumin/Globulin Ratio 1.4, Urine Opiates Screen NEGATIVE, Urine Methadone Screen NEGATIVE, Ur Barbiturates Screen NEGATIVE, Ur Phencyclidine Scrn NEGATIVE, Ur Amphetamines Screen NEGATIVE, MDMA (Ecstasy) Screen NEGATIVE, U Benzodiazepines Scrn NEGATIVE, Urine Cocaine Screen NEGATIVE, U Cannabinoids Screen NEGATIVE, Ur Drug Screen Comment , Ethyl Alcohol 248.0 Physical Exam Const alert and no apparent distress Neuro Sensorium / Orientation: awake and alert Psych affect normal Assessment & Plan Assessment/Plan (1) Alcohol dependence: QUALIFIERS: Substance use status: unspecified alcohol-induced disorder Qualified Code(s): F10.29 - Alcohol dependence with unspecified alcohol-induced disorder PLAN: phenobarbital taper Thiamine and folate. PLAN: Plan VTE prophylaxis: low-risk. not indicated. Charges/Coding Visit Charges Inpatient E&M: 43712 Subs Hosp L1
[2022-11-14 10:00] VITALS: BP 138/91; PULSE 98; RESP 17; TEMP 36.7; O2SAT 97
[2022-11-14] MEDS: Dicyclomine 10 MG Capsule 20 MG PO (10:04)
[2022-11-14] MEDS: Thiamine Hydrochloride 100 MG Tablet PO (10:04)
[2022-11-14] MEDS: Folic Acid 1 MG Tablet PO (10:04)
--- NOTE | 2022-11-14 10:45 | CASEMGMT ---
ONEL CM into pt room to sign [facility] consent. Pt reports he does not have a phone or address to receive mail. Pt reports being homeless. He signed form. Noted this on email to [facility].
[2022-11-14 14:03] VITALS: BP 126/79; PULSE 95; RESP 17; TEMP 36.8; O2SAT 97
--- NOTE | 2022-11-14 15:38 | CASEMGMT ---
Social work MS3 Sw informed that patient triggered need for SDOH to be completed. Sw presented to bedside, introduced self to patient and explained sw role during admission. Patient states that he was living in a boarding house for quite some time when out of no where the landlord informed the residents that they were going to be getting evicted in the future because he is converting the home into a one family home. Patient states that he did not wait to get notified of an eviction, he just took all his belongings and left. Patient states that he does not have any where to go once discharged from hospital. Patient reports that he was formerly employed at [email or web address], but he started drinking in excess and it affected his work and as a result is no longer employed there. Patient was talkative and receptive to sw involvement and support. Patient states that he met with [facility] worker and she is working on getting him connected to an inpatient treatment program to help him detox and get sober. Patient reports that he is receptive to this plan and hopes that works out. Patient was encouraged to ask for social work should any other concerns or issues arise. Jagdish Maradiaga, ROAD TRAIN DRIVER, GROCERY CLERK STOCKING
--- NOTE | 2022-11-14 16:01 | CHAPLAIN ---
Type of Pastoral Visit _x__ Initial Visit ___ Follow-up Visit ___ On-call Visit ___ General Patient Visit ___ Spiritual Assessment ___ Family Conference ___ Bereavement ___ Rapid Response ___ Code Blue ___ Other (describe below) Pastoral Care Referral From _x__ Patient ___ Family ___ Nurse ___ Physician ___ Automotive Product Engineer ___ Jewelry Bearing Maker ___ Other (describe below) Sacrament/Intervention _x__ Active listening ___ Anointing ___ Uatsdin ___ Bereavement ___ Communion _x__ Mayra exploration ___ _x__ Life review _x__ Prayer ___ Reconciliation ___ Sacrament of Sick _x__ Supportive presence ___ Wedding ___ Other (describe below) Pastoral Comments patient is alert and open to discussing his life, current homeless situation, desire for sobriety, mayra interest, next steps in recovery, time for interaction, and prayer; pt is without a support system and only family member that he has is his mother in [facility]; pt asks for insights in rehab and recovery living; pt would like to have support for spiritual life and development; pt requests follow up visit tomorrow if possible
[2022-11-14 18:00] VITALS: BP 129/72; PULSE 84; RESP 12; TEMP 37.1; O2SAT 97
[2022-11-14] MEDS: Ensure Plus High Protein 120 ML LIQUID PO ×2 (18:10→21:55)
[2022-11-14 20:02] VITALS: BP 116/68; PULSE 82; RESP 16; TEMP 37.2; O2SAT 98
[2022-11-14] MEDS: hydrOXYzine PAM 25 MG Capsule 50 MG PO (20:08)
[2022-11-15] MEDS: Phenobarbital 32.4 MG Tablet 64.8 MG PO ×3 (02:05→10:52)
[2022-11-15 02:10] VITALS: BP 108/52; PULSE 64; RESP 16; TEMP 36.7; O2SAT 99
[2022-11-15 08:10] VITALS: BP 101/72; PULSE 70; RESP 18; TEMP 36.4; O2SAT 98
--- NOTE | 2022-11-15 08:10 | PN.HOSP_ITS ---
Reason for Visit Reason for Visit: Diagnoses Alcohol dependence, uncomplicated (11/13/22) Alcohol dependence with unspecified alcohol-induced disorder (11/13/22) Subjective Subjective Feels well. Tolerating diet. Typically, when he is able to eat after withdrawing, he is on the mend. Objective Data Objective Data Vital Signs: Vital Signs Temp Pulse Resp BP Pulse Ox O2 Del Method 36.7 C 64 16 108/52 L 99 Room Air 11/15/22 02:10 11/15/22 02:10 11/15/22 02:10 11/15/22 02:10 11/15/22 02:10 11/15/22 02:10 Oxygen Delivery Method Room Air Weight: 57.5 kg Body Mass Index (BMI) 21.7 Medical Nutrition Assessment Dietitian: Malnutrition Criteria Met Start: 11/14/22 15:41 Freq: Status: Active Protocol: Document 11/14/22 15:41 RMA (Rec: 11/14/22 15:41 RMA [id number]) Nutrition Malnutrition Evidence of Malnutrition Exists Yes Malnutrition (severe): Chronic,Social/Behavioral/ Environmental Evidenced By Suboptimal Energy Intake ( Severe),Weight Loss (Severe) Clinical Problem Chronic Disease or Condition Related Malnutrition Etiology Severe protein-calorie malnutrition in the context of chronic disease and social circumstance related to inadequate oral intake of nutrient dense foods/beverage due to alcohol dependence Signs/Symptoms as evidenced by ~16% weight loss x 6 months and PO prior to admission meeting less than 50% estimated nutrition needs Status Active Problem Recommendation Dietitian Recommendations/Changes Continue regular diet and 120mL ensure plus high protein 4 times per day w/ medpass as ordered. Will add magic cup BID w/ lunch an dinner. Adjust ONS as needed to replete energy and protein, optimize oral intake and prevent further weight loss. Lab / Micro Data 11/13/22 19:20 11/13/22 19:20 Physical Exam Const alert and no apparent distress HEENT head/scalp atraumatic Extremity normal to inspection Assessment & Plan Assessment/Plan (1) Alcohol dependence: QUALIFIERS: Substance use status: unspecified alcohol-induced diso rder Qualified Code(s): F10.29 - Alcohol dependence with unspecified alcohol- induced disorder PLAN: phenobarbital taper Thiamine and folate. Doing better today. Plan for residential program. Discharge today. PLAN: Plan VTE prophylaxis: low-risk. not indicated.
[2022-11-15] MEDS: Folic Acid 1 MG Tablet PO (08:22)
[2022-11-15] MEDS: Thiamine Hydrochloride 100 MG Tablet PO (08:22)
[2022-11-15] MEDS: Gabapentin 300 MG Capsule PO (08:27)
[2022-11-15] MEDS: 0.9% Saline Lock 10 ML Syringe IV (08:28)
--- NOTE | 2022-11-15 10:53 | PCM.DC.SUM ---
Providers Date of Admission: 11/13/22 Primary Care Physician: Jeri Primary Care Phys Reason For Visit: ALCOHOL ABUSE/WITHDRAWL Diagnosis Discharge Diagnosis (1) Alcohol dependence: Status: Acute Code(s): F10.20 - Alcohol dependence, uncomplicated Qualifiers: Substance use status: unspecified alcohol-induced disorder Qualified Code(s): F10.29 - Alcohol dependence with unspecified alcohol-induced disorder Plan: phenobarbital taper Thiamine and folate. Doing better today. Plan for residential program. Discharge today. Plan VTE prophylaxis: low-risk. not indicated. Medications at Discharge Home Medications multivitamin 1 tab PO DAILY #30 tabs 11/15/22 Hospital Course Operations None Procedures None Summary of Care Provided Minutes Spent on Discharge: 28 Medical Records Data Medical Nutrition Assessment Dietitian: Malnutrition Criteria Met Start: 11/14/22 15:41 Freq: Status: Active Protocol: Document 11/14/22 15:41 RMA (Rec: 11/14/22 15:41 RMA [id number]) Nutrition Malnutrition Evidence of Malnutrition Exists Yes Malnutrition (severe): Chronic,Social/Behavioral/ Environmental Evidenced By Suboptimal Energy Intake ( Severe),Weight Loss (Severe) Clinical Problem Chronic Disease or Condition Related Malnutrition Etiology Severe protein-calorie malnutrition in the context of chronic disease and social circumstance related to inadequate oral intake of nutrient dense foods/beverage due to alcohol dependence Signs/Symptoms as evidenced by ~16% weight loss x 6 months and PO prior to admission meeting less than 50% estimated nutrition needs Status Active Problem Recommendation Dietitian Recommendations/Changes Continue regular diet and 120mL ensure plus high protein 4 times per day w/ medpass as ordered. Will add magic cup BID w/ lunch an dinner. Adjust ONS as needed to replete energy and protein, optimize oral intake and prevent further weight loss. Weight / BMI Weight Weight: 57.5 kg Body Mass Index (BMI) 21.7 ABG / Lab / Microbiology Data 11/13/22 19:20 11/13/22 19:20 D/C Instructions Discharge Diet: No restrictions Meaningful Use Info Meaningful Use Diagnoses (Choose all that apply): None applicable Discharge Plan Admission Admit Date/Time: 11/13/22 20:57 Primary Reason for Your Visit: alcohol withdrawal Attending Provider: Gasper Hanks Primary Care Provider: Care Physician,No Primary Consulting Providers: Romaine Manzo Discharge Orders/Prescriptions Prescriptions: New multivitamin Tablet 1 tab PO DAILY Qty: 30 0RF Referrals / Follow Up: Care Physician,No Primary [Primary Care Provider] - Disposition Disposition (needs filled in before D/C Order can be placed): Home, Self Care Charges/Coding Visit Charges Inpatient E&M: 59434 Disch Hosp
[2022-11-15] MEDS: Ensure Plus High Protein 120 ML LIQUID PO (10:54)
--- NOTE | 2022-11-15 11:31 | PHA.DC.MR.R ---
Pharmacy [place] Med Reconciliation Pharmacy Service has performed discharge medication reconciliation for this patient. The patient's discharge medication list was reviewed for discrepancies and discrepancies were resolved. Medications at Discharge Home Medications multivitamin 1 tab PO DAILY #30 tabs 11/15/22
[2022-11-15 13:51] VITALS: BP 137/72; PULSE 78; RESP 18; TEMP 36.9; O2SAT 98
== END 2022-11-15 13:56 | disposition home or self-care (01) | DRG 896 ==
LOC: ED 20:47 → MS3 22:39
PROVIDERS: Admitting Provider Family Medicine; Emergency Provider Emergency Medicine
DX: F10.239 Alcohol dependence with withdrawal, unspecified (principal); E43 Unspecified severe protein-calorie malnutrition; F17.210 Nicotine dependence, cigarettes, uncomplicated; Y90.8 Blood alcohol level of 240 mg/100 ml or more; Z68.21 Body mass index [BMI] 21.0-21.9, adult
CPT/HCPCS: 80053; 80307; 82077; 85025; 85610; 97802; 99284; A4216

== ENCOUNTER 2025-01-24 00:16 | Inpatient (IN) | payer MEDICAID, SELFPAY ==
[2025-01-24] VITALS (11 sets, daily range): BP systolic 117–140; BP diastolic 63–92; PULSE 64–101; RESP 14–18; TEMP 36.1–37.1; O2SAT 96–99; BMI 23.6; BMI 23.4
[2025-01-24 01:10] LABS: Hematocrit 44.5 % (40-54); Hemoglobin 15.6 g/dL (13.0-16.5); Immature Granulocytes Count 0.020 X10^3/uL (0.0-0.0); Mean Corp Hgb Conc 35.1 g/dL (32-36); Mean Corpuscular Volume 95.3 fL (80-94); Mean Platelet Vol. 9.4 fl (6.2-12.0); NRBC Flagged by Analyzer 0 % (0-5); Platelet Count 290 K/mm3 (150-450); RBC Distribution Width CV 12.5 % (11.6-14.6); RBC Distribution Width SD 43.8 fl (35.1-43.9); Red Blood Count 4.67 M/mm3 (4.6-6.2); White Blood Count 7.0 K/mm3 (4.4-11.0)
[2025-01-24 01:35] LABS: Alcohol, Blood (Medical)-Serum 186.0 mg/dL (<=10.0); Anion Gap 12 (5-15); BUN 4 mg/dL (4-19); BUN/Creat Ratio 5.7 RATIO (10-20); Barbiturate Urine NEGATIVE (< 200 ng/mL); Benzodiazepine Urine NEGATIVE (< 200 ng/mL); Calcium,Total 8.8 mg/dL (7.6-11.0); Carbon Dioxide 24.6 mmol/L (21.0-32.0); Chloride 97 mmol/L (98-108); Glucose 94 mg/dL (70-99); PCP Urine NEGATIVE (< 25 ng/mL); Potassium 3.8 mmol/L (3.3-5.1); THC Urine NEGATIVE (< 50 ng/mL)
[2025-01-24 01:55] LABS: AST(SGOT) 200 U/L (<=37); Alanine Aminotransfer ALT/SGPT 193 U/L (<=46); Albumin, Serum 4.2 g/dL (3.5-5.0); Alkaline Phosphatase 136 U/L (40-129); Bilirubin, Direct 0.28 mg/dL (0.00-0.30); Globulin 2.8 g/dL (2.2-4.2)
--- NOTE | 2025-01-24 02:05 | PCM.HP.STD ---
[facility] - General General Date of Admission: 01/24/25 Date of Service: 01/24/25 Chief Complaint: Requesting EtOH Detox. HPI Narrative OSVALDO CHRISTY, is a 45 M with a past medical history of depression with anxiety; currently not on treatment, tobacco abuse and chronic EtOH abuse; ~24 beers/day x ~20 years with last admission here from November 13, 2022 to November 16, 2022 for treatment of EtOH withdrawal who presents to [facility] ER once again requesting EtOH detox. Mr. Christy reports he has never been able to achieve lasting sobriety in spite of being admitted to detox/rehab multiple times in the past. He states his last drink was ~1 hour prior to arrival so he denies current withdrawal symptoms. He denies illicit drug use, other recent illness or other significant medical issues at this time. In the ER he was noted to have a VLADIMIR of 186 mg/dL consistent with Acute EtOH Intoxication in the setting of Chronic EtOH Abuse and he was then admitted to the general medical floor for treatment under the EtOH detoxification protocol for a stay that is expected to extend beyond 2 midnights. [facility] Medical History Anxiety Depression Smoker Alcoholism Alcohol dependence Smoker Alcohol abuse Home Medications ?Medication ?Instructions ?Recorded ?Last Taken ?Type NK 09/10/20 Unknown History multivitamin 1 tab PO DAILY #30 tabs 11/15/22 Unknown Rx Allergy/AdvReac Type Severity Reaction Status Date / Time No Known Allergies Allergy Verified 01/24/25 00:17 Family History Other Cancer Hypertension Social History Smoking Status: Current every day smoker tobacco type: cigarettes and smokeless tobacco ROS ROS Narrative Review of Systems: Constitutional: Patient denies fever or chills. Eyes: Patient denies changes in vision or discharge from eyes. ENT: Patient denies runny nose, sore throat or ear pain. Resp: Patient denies SOB or cough. CV: Patient denies chest pain, palpitations, heart racing or LE edema. GI: Patient denies abdominal pain, nausea, vomiting, diarrhea or constipation. : Patient denies dysuria or hematuria. MSK: Patient denies arthralgias or myalgias. Skin: Patient denies rash, abscess, wounds or jaundice. Psych: Patient admits to depression and anxiety but he denies SI or HI. Neuro: Patient denies headache, paresthesias or focal neurologic deficits. Allergy: Patient denies lip swelling, tongue swelling or urticaria. Hematology: Patient denies easy bleeding or easy bruisability. Endocrinology: Patient denies polyuria, polydipsia, polyphagia or heat/cold/intolerance. 14 point ROS otherwise negative except for positives noted above in HPI. Vital Signs Vital Signs Vital Signs: 01/24/25 00:17 01/24/25 00:29 01/24/25 01:10 Temperature 98.2 F 97 F L Temperature Source Temporal Temporal Pulse Rate 97 94 89 Respiratory Rate 15 16 15 Blood Pressure 139/92 H 120/80 120/80 Blood Pressure Mean 107 93 93 Blood Pressure Source Monitor Monitor Pulse Ox 98 99 99 Oxygen Delivery Method Room Air Room Air Room Air 01/24/25 02:00 Temperature Temperature Source Pulse Rate 92 Respiratory Rate 16 Blood Pressure 125/70 H Blood Pressure Mean 88 Blood Pressure Source Pulse Ox 99 Oxygen Delivery Method Room Air Physical Exam Const alert, oriented x3, no apparent distress, average body habitus and healthy appearing General Appearance: cooperative HEENT normocephalic, head/scalp atraumatic, hearing grossly normal bilaterally and moist oral mucous membranes Eyes PERRL and EOMs intact bilaterally Neck no lymphadenopathy, supple and no JVD Resp normal respiratory effort, no retractions, no use of accessory muscles and clear to auscultation bilaterally Cardio regular rate and regular rhythm GI normal to inspection, nondistended, normoactive bowel sounds, soft to palpation, non-tender and non-distended Extremity normal to inspection, full ROM and no clubbing, cyanosis or edema Skin Skin Narrative: Patient has no evidence of rash, abscess, wounds or jaundice. Neuro oriented x3, CN's II-XII intact bilaterally, moves all extremities and no focal motor deficits Sensorium / Orientation: awake, alert, oriented to person, oriented to place and oriented to time Speech: speech normal Psych Mood & Affect: depressed and anxious Results Medical Records Data Attestation: I reviewed the patient's medical records Lab / Micro Data Attestation: I reviewed the patient's lab results. 01/24/25 01:00 01/24/25 01:00 Labs: Laboratory Results - last 24 hr 01/24/25 01:00: WBC 7.0, RBC 4.67, Hgb 15.6, Hct 44.5, MCV 95.3 H, MCH 33.4 H, MCHC 35.1, RDW Std Deviation 43.8, RDW Coeff of Mary 12.5, Plt Count 290, MPV 9.4, Immature Gran % (Auto) 0.300, Neut % (Auto) 38.0 L, Lymph % (Auto) 44.1 H, [place] % (Auto) 9.1, Eos % (Auto) 6.9 H, Baso % (Auto) 1.6 H, Absolute Neuts (auto) 2.7, Absolute Lymphs (auto) 3.09, Nucleated RBC % 0, Sodium 134, Potassium 3.8, Chloride 97 L, Carbon Dioxide 24.6, Anion Gap 12, BUN 4, Creatinine 0.72, Est GFR (MDRD) Non-Af 116, BUN/Creatinine Ratio 5.7 L, Glucose 94, Calcium 8.8, Total Bilirubin 0.52, Direct Bilirubin 0.28, AST 200 H, ALT 193 H, Alkaline Phosphatase 136 H, Total Protein 7.0, Albumin 4.2, Globulin 2.8, Urine Opiates Screen NEGATIVE, U Buprenorphine Qual NEGATIVE, Ur Oxycodone Screen NEGATIVE, Urine Methadone Screen NEGATIVE, Urine Fentanyl Screen NEGATIVE, Ur Barbiturates Screen NEGATIVE, Ur Phencyclidine Scrn NEGATIVE, Ur Amphetamines Screen NEGATIVE, U Benzodiazepines Scrn NEGATIVE, Urine Cocaine Screen NEGATIVE, U Cannabinoids Screen NEGATIVE, Ethyl Alcohol 186.0 H Assessment & Plan Assessment/Plan (1) Acute alcohol intoxication: QUALIFIERS: Complication of substance-induced condition: uncomplicated Qualified Code(s): F10.920 - Alcohol use, unspecified with intoxication, uncomplicated (2) Chronic alcohol abuse: (3) Tobacco abuse: (4) Depression with anxiety: PLAN: Plan 1. Acute EtOH Intoxication in the setting of Chronic EtOH Abuse - Admit to general medical floor for treatment under the EtOH detox protocol primarily consisting of phenobarbital taper. He will also be treated with standard vitamins to prevent potential complications. Give ibuprofen prn pain or fever. Give ondansetron prn for nausea and vomiting. Finally, we will consult Case Management to see this patient on-rounds in the AM to help refer him to the geriatric social work professor that hopefully can help him achieve lasting sobriety this time. 2. Tobacco Abuse complicating #1 - Tobacco Cessation will be strongly encouraged with Nicotine patch offered to control cravings. 3. Depression with Anxiety; currently not on treatment compounding #1 & #2 - Patient would likely benefit from referral to psychiatry if he is able to achieve lasting sobriety. 4. DVT prophylaxis - Enoxaparin 40 mg sq daily plus SCD's. Total time: Approximately (but not less than) 40 minutes. Charges/Coding Visit Charges Inpatient E&M: 49595 Init Hosp L1
--- NOTE | 2025-01-24 02:12 | EX.ED.DYSGE1 ---
HPI History of Present Illness Chief Complaint: ETOH Intox Informant: patient Narrative Narrative: Patient is a 45-year-old male with past medical history of anxiety depression and alcohol abuse/alcoholism. He states he drinks roughly 24 beers per day. He reports that he has been through detox/rehab in the past and has done well for months to years but has recently relapsed. He states that he does not use any type of illicit drugs. He reports that he wishes to go through rehab once again. He states his last drink was roughly 1 hour prior to arrival. [facility] Medical History Anxiety Depression Smoker Alcoholism Alcohol dependence Smoker Alcohol abuse Home Medications ?Medication ?Instructions ?Recorded ?Last Taken ?Type NK 09/10/20 Unknown History multivitamin 1 tab PO DAILY #30 tabs 11/15/22 Unknown Rx Allergy/AdvReac Type Severity Reaction Status Date / Time No Known Allergies Allergy Verified 01/24/25 00:17 Family History Other Cancer Hypertension Social History Smoking Status: Current every day smoker tobacco type: cigarettes and smokeless tobacco ROS ROS ED Constitutional Constitutional ED: Denies chills or fever(s) Eyes Eyes: Denies blurry vision or change in vision ENT ENT ED: Denies sore throat Cardiovascular Cardiovascular: Denies chest pain, palpitations or racing heartbeat Respiratory/Chest Respiratory/Chest: Denies cough or dyspnea Gastrointestinal Gastrointestinal: Denies abdominal pain, diarrhea, nausea or vomiting Musculoskeletal Musculoskeletal: Denies myalgias Integumentary Denies rash Neurologic Neurologic: Denies headache(s) or paresthesias Psychiatric Psychiatric: Denies suicidal ideation or suicidal thoughts Hematologic/Lymphatic Hematologic/Lymphatic: Denies easy bleeding or easy bruising EXAM Physical Exam Const Vital Signs: 01/24/25 00:17 01/24/25 00:29 01/24/25 01:10 Temperature 98.2 F 97 F L Temperature Source Temporal Temporal Pulse Rate 97 94 89 Respiratory Rate 15 16 15 Blood Pressure 139/92 H 120/80 120/80 Blood Pressure Mean 107 93 93 Blood Pressure Source Monitor Monitor Pulse Ox 98 99 99 Oxygen Delivery Method Room Air Room Air Room Air 01/24/25 02:00 01/24/25 02:25 Temperature 97.8 F Temperature Source Pulse Rate 92 92 Respiratory Rate 16 16 Blood Pressure 125/70 H 140/88 H Blood Pressure Mean 88 105 Blood Pressure Source Pulse Ox 99 99 Oxygen Delivery Method Room Air Positive well nourished and well developed General Appearance ED: well developed; Negative for pallor HEENT HEENT Narrative: Normocephalic atraumatic Eyes PERRL and EOMs intact bilaterally General Eye ED: Negative for scleral icterus Neck supple Neck Narrative: No nuchal rigidity or meningeal signs Resp normal respiratory effort and clear to auscultation bilaterally Cardio regular rate and regular rhythm GI normal to inspection, nondistended, normoactive bowel sounds, non-tender, non-distended and no masses Auscultation: normoactive bowel sounds Palpation: soft Extremity normal to inspection Neuro oriented x3, CN's II-XII intact bilaterally and no sensory deficits noted Sensorium / Orientation: alert Motor Exam: strength 5/5 throughout Psych mental status grossly normal Psych Narrative: No homicidal or suicidal ideation Skin no wounds General Skin Exam: Negative for jaundice or pallor MDM MDM MDM Narrative Medical decision making narrative: Patient arrived to the ER mildly hypertensive otherwise with stable vitals. He presents for potential detox from alcohol. By history and physical exam he does not have signs of acute alcohol withdrawal. However as he does drink reportedly 24 beers a day he has high likelihood of progressing to alcohol withdrawal and delirium tremens. As he is high risk for decompensation if not treated basic labs were obtained for medical clearance. Patient's liver enzymes are slightly elevated consistent with alcohol use but otherwise show no clinically significant findings other than the elevated alcohol level consistent with his history of being an alcoholic. At this time he is not showing findings of acute withdrawal so there is no need for Ativan or phenobarbital. However as he we will need admitted for alcohol detox the case was discussed with the hospitalist. He agrees to accept the patient for continued care. History & Record Review Discussion w/independent historian: Patient Lab Data Attestation: I reviewed the patient's lab results. Labs: Laboratory Results - last 24 hr 01/24/25 01:00 WBC 7.0 RBC 4.67 Hgb 15.6 Hct 44.5 MCV 95.3 H MCH 33.4 H MCHC 35.1 RDW Std Deviation 43.8 RDW Coeff of Mary 12.5 Plt Count 290 MPV 9.4 Immature Gran % (Auto) 0.300 Neut % (Auto) 38.0 L Lymph % (Auto) 44.1 H [place] % (Auto) 9.1 Eos % (Auto) 6.9 H Baso % (Auto) 1.6 H Absolute Neuts (auto) 2.7 Absolute Lymphs (auto) 3.09 Nucleated RBC % 0 Sodium 134 Potassium 3.8 Chloride 97 L Carbon Dioxide 24.6 Anion Gap 12 BUN 4 Creatinine 0.72 Est GFR (MDRD) Non-Af 116 BUN/Creatinine Ratio 5.7 L Glucose 94 Calcium 8.8 Total Bilirubin 0.52 Direct Bilirubin 0.28 AST 200 H ALT 193 H Alkaline Phosphatase 136 H Total Protein 7.0 Albumin 4.2 Globulin 2.8 Urine Opiates Screen NEGATIVE U Buprenorphine Qual NEGATIVE Ur Oxycodone Screen NEGATIVE Urine Methadone Screen NEGATIVE Urine Fentanyl Screen NEGATIVE Ur Barbiturates Screen NEGATIVE Ur Phencyclidine Scrn NEGATIVE Ur Amphetamines Screen NEGATIVE U Benzodiazepines Scrn NEGATIVE Urine Cocaine Screen NEGATIVE U Cannabinoids Screen NEGATIVE Ethyl Alcohol 186.0 H Management Discussion w/another healthcare provider: Hospitalist Discharge Plan Dx/Rx/DC Orders Clinical Impression: Chronic alcohol abuse, Depression with anxiety, Tobacco abuse Disposition Disposition: Acute Care Hospital [facility]
[2025-01-24 03:39] LABS: Prothrombin Time (Protime)PT. 12.5 SECONDS (11.7-14.9)
[2025-01-24] MEDS: hydrOXYzine PAM 25 MG Capsule 50 MG PO ×3 (04:03→19:46)
[2025-01-24] MEDS: 0.9% Saline Lock 10 ML Syringe IV (04:03)
[2025-01-24 04:38] LABS: Vitamin B12 1099 pg/mL (180-914)
[2025-01-24 05:15] LABS: FOLATES,SERUM (FOLIC ACID) 12.70 ng/mL (4.60-34.80)
[2025-01-24] MEDS: Thiamine Hydrochloride 100 MG Tablet PO (08:06)
--- NOTE | 2025-01-24 11:26 | PN.HOSP_ITS ---
Reason for Visit Chief Complaint: Requesting EtOH Detox. Objective Data Objective Data Vital Signs: Vital Signs Temp Pulse Resp BP Pulse Ox O2 Del Method 98.1 F 87 14 117/67 96 Room Air 01/24/25 08:09 01/24/25 08:09 01/24/25 08:09 01/24/25 08:09 01/24/25 08:09 01/24/25 08:09 Oxygen Delivery Method Room Air Weight: 137 lb 5.568 oz Body Mass Index (BMI) 23.4 Intake & Output: Intake and Output for Last 24 Hours 01/22/25 01/23/25 01/24/25 23:59 23:59 23:59 Intake Total 500 / 500 Balance 500 / 500 Lab / Micro Data 01/24/25 01:00 01/24/25 01:00 Labs: Laboratory Results - last 24 hr 01/24/25 01:00: WBC 7.0, RBC 4.67, Hgb 15.6, Hct 44.5, MCV 95.3 H, MCH 33.4 H, MCHC 35.1, RDW Std Deviation 43.8, RDW Coeff of Mary 12.5, Plt Count 290, MPV 9.4, Immature Gran % (Auto) 0.300, Neut % (Auto) 38.0 L, Lymph % (Auto) 44.1 H, [place] % (Auto) 9.1, Eos % (Auto) 6.9 H, Baso % (Auto) 1.6 H, Absolute Neuts (auto) 2.7, Absolute Lymphs (auto) 3.09, Nucleated RBC % 0, PT 12.5, INR 0.9, Sodium 134, Potassium 3.8, Chloride 97 L, Carbon Dioxide 24.6, Anion Gap 12, BUN 4, Creatinine 0.72, Est GFR (MDRD) Non-Af 116, BUN/Creatinine Ratio 5.7 L, Glucose 94, Calcium 8.8, Total Bilirubin 0.52, Direct Bilirubin 0.28, AST 200 H, ALT 193 H, Alkaline Phosphatase 136 H, Total Protein 7.0, Albumin 4.2, Globulin 2.8, Vitamin B12 1099 H, Serum Folate 12.70, Urine Opiates Screen NEGATIVE, U Buprenorphine Qual NEGATIVE, Ur Oxycodone Screen NEGATIVE, Urine Methadone Screen NEGATIVE, Urine Fentanyl Screen NEGATIVE, Ur Barbiturates Screen NEGATIVE, Ur Phencyclidine Scrn NEGATIVE, Ur Amphetamines Screen NEGATIVE, U Benzodiazepines Scrn NEGATIVE, Urine Cocaine Screen NEGATIVE, U Cannabinoids Screen NEGATIVE, Ethyl Alcohol 186.0 H Assessment & Plan Assessment/Plan (1) Acute alcohol intoxication: QUALIFIERS: Complication of substance-induced condition: u ncomplicated Qualified Code(s): F10.920 - Alcohol use, unspecified with intoxication, uncomplicated (2) Chronic alcohol abuse: (3) Tobacco abuse: (4) Depression with anxiety: PLAN: Plan 45-year-old gentleman with history of chronic alcohol use since early 20s came to ED for control of alcohol withdrawal symptoms 1. Acute EtOH Intoxication in the setting of Chronic EtOH Abuse disorder, dependence, tolerance and relapse-patient is being admitted to [facility] floor. Patient on phenobarbital based order set along with other adjunctive medications gabapentin, Bentyl, Vistaril, clonidine, Klonopin as needed for alcohol withdrawal symptom control. Patient is on thiamine and folate acid. CIWA monitor. insurance office manager 180 consulted. Patient also had sobriety for about 3 years 1 time. He drinks 24 ounce cane, 24 cans daily. He used to drink hard liquor in his younger days and occasionally crack cocaine in the past. Currently denies any substance use including opioids 2. Chronic cigarette smoking/nicotine dependence: Tobacco Cessation will be strongly encouraged with Nicotine patch offered to control cravings. 3. Depression with Anxiety; currently not on treatment - Patient would likely benefit from referral to psychiatry if he is able to achieve lasting sobriety. 4. DVT prophylaxis -low risk. Prophylaxis not indicated. Early ambulation encouraged. Living will/advanced directive/end of life care: Patient does not have living will or advanced directive. He does not have a regular power of consumer attorney for health after discussion of benefits/risks procedures involved with full code, DNR CC arrest and DNR CC, the patient opted for full code. Patient does want artificial life support including intubation, tube feed, ventilator and/chest compression, central venous catheter, vasopressor and DC shock if needed Total time spent in [id number] encounter in discussion of advanced directive 17 minutes. 01/24/25 01:00: WBC 7.0, RBC 4.67, Hgb 15.6, Hct 44.5, MCV 95.3 H, MCH 33.4 H, MCHC 35.1, RDW Std Deviation 43.8, RDW Coeff of Mary 12.5, Plt Count 290, MPV 9.4, Immature Gran % (Auto) 0.300, Neut % (Auto) 38.0 L, Lymph % (Auto) 44.1 H, [place] % (Auto) 9.1, Eos % (Auto) 6.9 H, Baso % (Auto) 1.6 H, Absolute Neuts (auto) 2.7, Absolute Lymphs (auto) 3.09, Nucleated RBC % 0, PT 12.5, INR 0.9, Sodium 134, Potassium 3.8, Chloride 97 L, Carbon Dioxide 24.6, Anion Gap 12, BUN 4, Creatinine 0.72, Est GFR (MDRD) Non-Af 116, BUN/Creatinine Ratio 5.7 L, Glucose 94, Calcium 8.8, Total Bilirubin 0.52, Direct Bilirubin 0.28, AST 200 H, ALT 193 H, Alkaline Phosphatase 136 H, Total Protein 7.0, Albumin 4.2, Globulin 2.8, Vitamin B12 1099 H, Serum Folate 12.70, Urine Opiates Screen NEGATIVE, U Buprenorphine Qual NEGATIVE, Ur Oxycodone Screen NEGATIVE, Urine Methadone Screen NEGATIVE, Urine Fentanyl Screen NEGATIVE, Ur Barbiturates Screen NEGATIVE, Ur Phencyclidine Scrn NEGATIVE, Ur Amphetamines Screen NEGATIVE, U Benzodiazepines Scrn NEGATIVE, Urine Cocaine Screen NEGATIVE, U Cannabinoids Screen NEGATIVE, Ethyl Alcohol 186.0 H Charges/Coding Visit Charges Inpatient E&M: 46034 Subs Hosp L2 Procedures Hospitalists Procedures: 80788 Advncd Care Plan 30 Min
--- NOTE | 2025-01-24 15:57 | CASEMGMT ---
Social Work SW met with pt and completed SDOH assessment. Pt states he had an apartment in [place] and left this home yesterday on good terms, but because of the environment. Pt wishes to get help for alcohol use and came to [place] with intentions to stay in his car. Pt states he got really drunk last night and decided he does not want to spend his life like this and wants to get help with alcohol use. Pt admitted for detox and treatment. FLACO collaborated with Addiction Therapist. Pt requesting residential treatment and addiction therapist will work on this. FLACO sent email to Sonam with [employer] and requested she see pt on Sunday to evaluate for Medicaid. Pt is agreeable to this plan. Community resources provided to pt for self pay. ALONZO Santos
[2025-01-24] MEDS: Nicotine (PBKC) 14 MG Patch TD (17:40)
--- NOTE | 2025-01-24 17:42 | ADDICTION ---
This comic book writer met with PT to conduct ASAM, MSE, and AUDIT assessments and to plan for d/c. PT A+Ox4 and participated actively. All assessments completed and placed in PT's chart. PT agreeable to following up with inpatient treatment services in [place] or a surrounding county, but presents with no insurance. Payment authorization form will be submitted to [facility] for detox services. A referral was submitted to [facility] ([facility]) for inpatient treatment. Addiction therapist to follow up on Friday 01/26 to continue coordinating care. No transportation needs identified.
[2025-01-25] MEDS: hydrOXYzine PAM 25 MG Capsule 50 MG PO ×2 (03:02→22:03)
[2025-01-25 03:06] VITALS: BP 106/75; PULSE 64; RESP 16; TEMP 36.1; O2SAT 96
[2025-01-25] MEDS: Thiamine Hydrochloride 100 MG Tablet PO (08:18)
[2025-01-25 08:22] VITALS: BP 134/79; PULSE 94; RESP 16; TEMP 36.6; O2SAT 99
--- NOTE | 2025-01-25 09:07 | PCM.PN.HOSP ---
Reason for Visit Chief Complaint: Requesting EtOH Detox. Objective Data Objective Data Vital Signs: Vital Signs Temp Pulse Resp BP Pulse Ox O2 Del Method 97.9 F 94 16 134/79 H 99 Room Air 01/25/25 08:22 01/25/25 08:22 01/25/25 08:22 01/25/25 08:22 01/25/25 08:22 01/25/25 08:23 Oxygen Delivery Method Room Air Weight: 137 lb 5.568 oz Body Mass Index (BMI) 23.4 Intake & Output: Intake and Output for Last 24 Hours 01/23/25 01/24/25 01/25/25 23:59 23:59 23:59 Intake Total 1100 / 1100 Balance 1100 / 1100 Lab / Micro Data 01/24/25 01:00 01/24/25 01:00 Social Homelessness:: Unsheltered Physical Exam Narrative Seen and examined. Patient is feeling better than yesterday. Mild anxiety but denies hallucination, illusion or delusion. Anxiety and restlessness. Shaking better. Physical exam General: Alert, Oriented x3, Cooperative HEENT: Atraumatic, PERRLA, EOMI, Normocephalic. Oral: No Gingival or Mucosal Lesions/ Ulcerations Neck: Supple, No JVD, Negative Carotid Bruits Chest wall/Lungs: Air entry diminished in bilateral lung bases. No crepitation/rhonchi Cardiovascular: Regular rate and rhythm, Normal S1,S2, No M/G/R Abdomen: Bowel Sounds Present, Soft, Non Tender, Non-Distended : No dysuria. No renal angle tenderness. No suprapubic tenderness. Extremities: No edema, Capillary Refill Less than 3 Seconds Skin: No rashes, No breakdown Musculoskeletal: No Tenderness to Palpation of Joints or Extremities Neurological: Cranial nerves II-XII grossly intact, DTR 2+/4. No acute focal neurological deficit. Psych/Mental Status: Mild anxiety. Assessment & Plan Assessment/Plan (1) Acute alcohol intoxication: QUALIFIERS: Complication of substance-induced condition: uncomplicated Qualified Code(s): F10.920 - Alcohol use, unspecified with intoxication, uncomplicated (2) Chronic alcohol abuse: (3) Tobacco abuse: (4) Depression with anxiety: PLAN: Plan 45-year-old gentleman with history of chronic alcohol use since early 20s came to ED for control of alcohol withdrawal symptoms 1. Acute EtOH Intoxication in the setting of Chronic EtOH Abuse disorder, dependence, tolerance and relapse-[facility] Patient on phenobarbital based order set along with other adjunctive medications gabapentin, Bentyl, Vistaril, clonidine, Klonopin as needed for alcohol withdrawal symptom control. Patient is on thiamine and folate acid. CIWA monitor. manager order 180 consulted. Patient also had sobriety for about 3 years 1 time. He drinks 24 ounce cane, 24 cans daily. He used to drink hard liquor in his younger days and occasionally crack cocaine in the past. Currently denies any substance use including opioids 01/25: Patient has less anxiety than yesterday. Denies any delusion or hallucination. Shaking is better. Continue without treatment. manager order/180 evaluation tomorrow to determine whether he qualifies for inpatient substance use treatmentTo determine whether he qualifies for inpatient treatment. 2. Chronic cigarette smoking/nicotine dependence: Tobacco Cessation will be strongly encouraged with Nicotine patch offered to control cravings. 3. Depression with Anxiety; currently not on treatment - Patient would likely benefit from referral to psychiatry if he is able to achieve lasting sobriety. 4. DVT prophylaxis -low risk. Prophylaxis not indicated. Early ambulation encouraged. Living will/advanced directive/end of life care: Patient does not have living will or advanced directive. He does not have a regular power of commonwealth attorney for health after discussion of benefits/risks procedures involved with full code, DNR CC arrest and DNR CC, the patient opted for full code. Patient does want artificial life support including intubation, tube feed, ventilator and/chest compression, central venous catheter, vasopressor and DC shock if needed Total time spent in [id number] encounter in discussion of advanced directive 17 minutes. 01/24/25 01:00: WBC 7.0, RBC 4.67, Hgb 15.6, Hct 44.5, MCV 95.3 H, MCH 33.4 H, MCHC 35.1, RDW Std Deviation 43.8, RDW Coeff of Mary 12.5, Plt Count 290, MPV 9.4, Immature Gran % (Auto) 0.300, Neut % (Auto) 38.0 L, Lymph % (Auto) 44.1 H, [place] % (Auto) 9.1, Eos % (Auto) 6.9 H, Baso % (Auto) 1.6 H, Absolute Neuts (auto) 2.7, Absolute Lymphs (auto) 3.09, Nucleated RBC % 0, PT 12.5, INR 0.9, Sodium 134, Potassium 3.8, Chloride 97 L, Carbon Dioxide 24.6, Anion Gap 12, BUN 4, Creatinine 0.72, Est GFR (MDRD) Non-Af 116, BUN/Creatinine Ratio 5.7 L, Glucose 94, Calcium 8.8, Total Bilirubin 0.52, Direct Bilirubin 0.28, AST 200 H, ALT 193 H, Alkaline Phosphatase 136 H, Total Protein 7.0, Albumin 4.2, Globulin 2.8, Vitamin B12 1099 H, Serum Folate 12.70, Urine Opiates Screen NEGATIVE, U Buprenorphine Qual NEGATIVE, Ur Oxycodone Screen NEGATIVE, Urine Methadone Screen NEGATIVE, Urine Fentanyl Screen NEGATIVE, Ur Barbiturates Screen NEGATIVE, Ur Phencyclidine Scrn NEGATIVE, Ur Amphetamines Screen NEGATIVE, U Benzodiazepines Scrn NEGATIVE, Urine Cocaine Screen NEGATIVE, U Cannabinoids Screen NEGATIVE, Ethyl Alcohol 186.0 H Charges/Coding Visit Charges Inpatient E&M: 01364 Subs Hosp L2
[2025-01-25 15:00] VITALS: BP 117/74; PULSE 83; RESP 16; TEMP 36.6; O2SAT 100
[2025-01-25] MEDS: Nicotine (PBKC) 14 MG Patch TD (18:08)
[2025-01-25 22:10] VITALS: BP 122/77; PULSE 71; RESP 16; TEMP 36.6; O2SAT 99
[2025-01-26 02:54] VITALS: BP 115/63; PULSE 70; RESP 16; TEMP 36.1; O2SAT 98
--- NOTE | 2025-01-26 08:39 | PCM.PN.HOSP ---
Reason for Visit Chief Complaint: Requesting EtOH Detox. Subjective Subjective Patient is a 45-year-old gentleman with history of chronic alcohol dependence presented with acute alcohol withdrawal Objective Data Objective Data Vital Signs: Vital Signs Temp Pulse Resp BP Pulse Ox O2 Del Method 97 F L 70 16 115/63 98 Room Air 01/26/25 02:54 01/26/25 02:54 01/26/25 02:54 01/26/25 02:54 01/26/25 02:54 01/26/25 02:54 Oxygen Delivery Method Room Air Weight: 62.3 kg Body Mass Index (BMI) 23.4 Intake & Output: Intake and Output for Last 24 Hours 01/24/25 01/25/25 01/26/25 23:59 23:59 23:59 Intake Total 1100 / 1100 Balance 1100 / 1100 Lab / Micro Data 01/24/25 01:00 01/24/25 01:00 Social Homelessness:: Unsheltered Physical Exam Narrative GENERAL: cooperative HEENT: Atraumatic; normocephalic EYES; Anicteric, Normal Conjunctiva NECK; supple, normal thyroid, RESPIRATORY: Diminished to auscultation CARDIOVASCULAR: Regular S1 S2, GI: soft, normoactive bowel sounds, : No Renal angle tenderness; EXTREMITIES: No edema, no clubbing, MUSCULOSKELETAL: no muscle wasting NEURO: Awake; no lateralizing signs. SKIN: No Rash PSYCH; Flat affect Assessment & Plan Assessment/Plan (1) Acute alcohol intoxication: QUALIFIERS: Complication of substance-induced condition: uncomplicated Qualified Code(s): F10.920 - Alcohol use, unspecified with intoxication, uncomplicated (2) Chronic alcohol abuse: (3) Tobacco abuse: (4) Depression with anxiety: PLAN: Plan Patient is a 45-year-old gentleman with history of chronic alcohol dependence presented with acute alcohol withdrawal 1. Acute alcohol withdrawal - Patient has been admitted for treatment with phenobarb taper in addition to adjuvant medications including gabapentin, Bentyl, hydroxyzine and clonidine as needed for alcohol withdrawal symptoms. Patient was also placed on thiamine and folic acid, consultation placed to 180 counseling services/addiction medicine to assist with placement in a penitentiary facility 2. Depression with anxiety ? Patient to follow-up with primary care physician for subsequent treatment 3. Tobacco dependence ? Counseled on cessation, offered nicotine patch for tobacco cravings 4. DVT prophylaxis ? Low risk to encourage daily ambulation Time spent in the patient's overall evaluation,decision-making process, review of diagnostic data, adjustment of management, discussion with other providers, nursing nursing and ancillary staff involved in patient's care documentation 35 Minutes Charges/Coding Visit Charges Inpatient E&M: 18150 Subs Hosp L2
[2025-01-26] MEDS: Thiamine Hydrochloride 100 MG Tablet PO (08:59)
[2025-01-26 09:02] VITALS: BP 102/57; PULSE 75; RESP 16; TEMP 36.4
[2025-01-26] MEDS: hydrOXYzine PAM 25 MG Capsule 50 MG PO (09:07)
--- NOTE | 2025-01-26 11:00 | ADDICTION ---
Met with patient to discuss treatment follow up plan. [facility] is currently full with a waitlist. TW contacted [facility] for placement. He has been screened however will need to stay at the [facility] or [facility] for a couple of days while waiting on a bed there. He is agreeable to this and is aware of his resources.
--- NOTE | 2025-01-26 13:24 | PCM.DC.SUM ---
Providers Date of Admission: 01/24/25 Date of Discharge: 01/26/25 Primary Care Physician: No Primary Care Phys Reason For Visit: ACUTE ETOH INTOXICATION IN THE SETTING OF Diagnosis Discharge Diagnosis (1) Acute alcohol intoxication: Status: Acute Code(s): F10.929 - Alcohol use, unspecified with intoxication, unspecified Qualifiers: Complication of substance-induced condition: uncomplicated Qualified Code(s): F10.920 - Alcohol use, unspecified with intoxication, uncomplicated (2) Chronic alcohol abuse: Status: Chronic Code(s): F10.10 - Alcohol abuse, uncomplicated (3) Tobacco abuse: Status: Chronic Code(s): Z72.0 - Tobacco use (4) Depression with anxiety: Status: Acute Code(s): F41.8 - Other specified anxiety disorders Plan Patient is a 45-year-old gentleman with history of chronic alcohol dependence presented with acute alcohol withdrawal 1. Acute alcohol withdrawal - Patient has been admitted for treatment with phenobarb taper in addition to adjuvant medications including gabapentin, Bentyl, hydroxyzine and clonidine as needed for alcohol withdrawal symptoms. Patient was also placed on thiamine and folic acid, consultation placed to 180 counseling services/addiction medicine to assist with placement in an inpatient facility. Plan is for patient to be discharged home/[facility] before going to [facility] inpatient facility 2. Depression with anxiety ? Patient to follow-up with primary care physician for subsequent treatment 3. Tobacco dependence ? Counseled on cessation, offered nicotine patch for tobacco cravings 4. DVT prophylaxis ? Low risk to encourage daily ambulation Time spent in the patient's overall evaluation,decision-making process, review of diagnostic data, adjustment of management, discussion with other providers, nursing nursing and ancillary staff involved in patient's care documentation 35 Minutes Medications at Discharge Home Medications multivitamin 1 tab PO DAILY supplement #30 tabs 11/15/22 Physical Exam Narrative GENERAL: cooperative HEENT: Atraumatic; normocephalic EYES; Anicteric, Normal Conjunctiva NECK; supple, normal thyroid, RESPIRATORY: Diminished to auscultation CARDIOVASCULAR: Regular S1 S2, GI: soft, normoactive bowel sounds, : No Renal angle tenderness; EXTREMITIES: No edema, no clubbing, MUSCULOSKELETAL: no muscle wasting NEURO: Awake; no lateralizing signs. SKIN: No Rash PSYCH; Flat affect Medical Records Data Homelessness:: Unsheltered Weight / BMI Weight Weight: 62.3 kg Body Mass Index (BMI) 23.4 ABG / Lab / Microbiology Data 01/24/25 01:00 01/24/25 01:00 D/C Instructions Discharge Activity: Return to Normal Activity Call your doctor if you observe: Fever of 101 or Higher, Shortness of breath, Fainting spells and Chest pain DC O2, CPAP, BIPAP Needs Home O2 Discharge instructions: No Meaningful Use Info Meaningful Use Meaningful Use Diagnoses (Choose all that apply): None applicable Discharge Plan Admission Admit Date/Time: 01/24/25 02:26 Attending Provider: Elvin Gaytan Primary Care Provider: Care Physician,No Primary Consulting Providers: Elvin Villalta; Raúl Ramirez Discharge Orders/Prescriptions Prescriptions: No Action multivitamin Tablet 1 tab PO DAILY Qty: 30 0RF Referrals / Follow Up: Care Physician,No Primary [Primary Care Provider, Medical] - Within 2 Weeks Disposition Disposition (needs filled in before D/C Order can be placed): Home, Self Care Charges/Coding Visit Charges Inpatient E&M: 99373 Disch Hosp >30min
[2025-01-26 15:16] VITALS: BP 111/64; PULSE 79; RESP 16; TEMP 36.6; O2SAT 93
--- NOTE | 2025-01-26 15:49 | CHAPLAIN ---
Type of Pastoral Visit ___ Initial Visit ___ Follow-up Visit ___ On-call Visit ___ General Patient Visit ___ Spiritual Assessment ___ Family Conference ___ Bereavement ___ Rapid Response ___ Code Blue ___ Other (describe below) Pastoral Care Referral From ___ Patient ___ Family ___ Nurse ___ Physician ___ Channel Specialist ___ Hand Router Operator ___ Other (describe below) Sacrament/Intervention ___ Active listening ___ Anointing ___ Oriental Orthodox ___ Bereavement ___ Communion ___ Mayra exploration ___ ___ Life review ___ Prayer ___ Reconciliation ___ Sacrament of Sick ___ Supportive presence ___ Wedding ___ Other (describe below) Pastoral Comments first attempt to visit and the patient had the 180 counselor in the room; second attempt to visit and the patient was sleeping and did not respond to his name; third attempt to visit and the patient had left the building
== END 2025-01-26 15:44 | disposition home or self-care (01) | DRG 775 ==
LOC: ED 02:12 → MS3 03:14
PROVIDERS: Emergency Medicine; Admitting Provider Internal Medicine; Emergency Provider Emergency Medicine; Visit Provider Internal Medicine
DX: F10.229 Alcohol dependence with intoxication, unspecified (principal); Z59.02 Unsheltered homelessness; F17.220 Nicotine dependence, chewing tobacco, uncomplicated; F17.210 Nicotine dependence, cigarettes, uncomplicated; Y90.6 Blood alcohol level of 120-199 mg/100 ml
CPT/HCPCS: 80048; 80076; 80307; 82077; 82607; 82746; 85025; 85610; 99284; A4216

== ENCOUNTER 2025-01-28 17:15 | Observation (INO) | payer MEDICAID, SELFPAY ==
[2025-01-28 17:16] VITALS: BP 113/73; PULSE 87; RESP 15; TEMP 36.6; O2SAT 98; BMI 25.1
--- NOTE | 2025-01-28 17:43 | EDS_ITS ---
HPI History of Present Illness Chief Complaint: ETOH Intox Informant: patient Onset/Context/Timing Onset: Today Context: Gradual Onset Timing: Continuous Worsened by: Nothing Relieved by: Nothing Associated Symptoms Associated Symptoms: Negative for vomiting*, diarrhea*, fever*, rash*, seizure, tremor, palpatations, suicidal ideation or homicidal ideation Narrative Narrative: Patient presents requesting alcohol detox. Patient states he was discharged after alcohol detox 2 days ago. Patient states he started drinking immediately. Patient states he drinks approximately 24 beers per day. Patient states his last drink was approximately 1 hour prior to arrival. Patient denies any suicidal or homicidal ideations. Patient denies any nausea or vomiting. Patient denies any tremors or seizures. Patient denies any chest pain or palpitations. PFSH PFSH Medical History Anxiety Depression Smoker Alcoholism Alcohol dependence Smoker Alcohol abuse Allergy/AdvReac Type Severity Reaction Status Date / Time No Known Allergies Allergy Verified 01/28/25 17:16 Family History Other Cancer Hypertension Social History Smoking Status: Current every day smoker tobacco type: cigarettes ROS ROS ED Constitutional Constitutional ED: Denies chills or fever(s) Eyes Eyes: Denies blurry vision or change in vision ENT ENT ED: Denies rhinorrhea or sore throat Cardiovascular Cardiovascular: Denies chest pain or palpitations Respiratory/Chest Respiratory/Chest: Denies cough or dyspnea Gastrointestinal Gastrointestinal: Denies nausea or vomiting Genitourinary Genitourinary ED: Denies dysuria or hematuria Musculoskeletal Musculoskeletal: Denies back pain or neck pain Integumentary Denies abscess or rash Neurologic Neurologic: Denies headache(s) or weakness Allergic/Immunologic Allergic/Immunologic ED: Denies mouth swelling or urticaria EXAM Physical Exam Const Vital Signs: 01/28/25 17:16 Temperature 97.9 F Temperature Source Temporal Pulse Rate 87 Respiratory Rate 15 Blood Pressure 113/73 Blood Pressure Mean 86 Pulse Ox 98 Oxygen Delivery Method Room Air Positive well nourished and well developed General Appearance ED: well developed and NAD HEENT Reports moist mucous membranes Neck supple and no JVD Chest Wall palpation of chest normal Resp normal respiratory effort and clear to auscultation bilaterally Cardio regular rate and regular rhythm GI soft to palpation, non-tender and non-distended Neuro oriented x3, CN's II-XII intact bilaterally and no sensory deficits noted Saxon Coma Scale: document GCS findings Spontaneous Obeys Commands Oriented 15 Sensorium / Orientation: alert Speech: speech normal Motor Exam: strength 5/5 throughout Psych mental status grossly normal MDM MDM MDM Narrative Medical decision making narrative: Medical screening labs will be obtained. CBC will be obtained to assess for leukocytosis and anemia. Basic metabolic profile will be obtained to assess for electrolyte abnormality and renal function. Serum alcohol level will be obtained to assess for alcohol intoxication. Urine drug screen will be obtained to assess for substance abuse. History & Record Review Additional record(s) reviewed:: Prior inpatient record, Prior ED visit and Prior labs Lab Data Attestation: I reviewed the patient's lab results. Lab results narrative: CBC was reviewed and was essentially within normal limits. Comprehensive metabolic profile was reviewed. AST was slightly elevated at 113 and ALT was mildly elevated at 156. The remainder is within normal limits. Serum alcohol level was reviewed and was elevated at 175. Labs: Laboratory Results - last 24 hr 01/28/25 17:50 WBC 7.2 RBC 4.20 L Hgb 14.1 Hct 40.6 MCV 96.7 H MCH 33.6 H MCHC 34.7 RDW Std Deviation 43.8 RDW Coeff of Mary 12.3 Plt Count 338 MPV 9.3 Immature Gran % (Auto) 0.400 Neut % (Auto) 47.6 Lymph % (Auto) 35.4 [place] % (Auto) 7.5 Eos % (Auto) 7.8 H Baso % (Auto) 1.3 H Absolute Neuts (auto) 3.4 Absolute Lymphs (auto) 2.55 Nucleated RBC % 0 Sodium 139 Potassium 3.7 Chloride 104 Carbon Dioxide 23.1 Anion Gap 12 BUN 7 Creatinine 0.60 L Estim Creat Clear Calc 132.93 Est GFR (MDRD) Non-Af 123 BUN/Creatinine Ratio 12.2 Glucose 89 Calcium 8.6 Total Bilirubin 0.19 Direct Bilirubin 0.14 AST 113 H ALT 156 H Alkaline Phosphatase 103 Total Protein 6.3 Albumin 3.8 Globulin 2.5 Ethyl Alcohol 175.0 H Management Discussion w/another healthcare provider: Hospitalist Treatment and Re-Evaluation Narrative: Saline lock IV was established. Case was discussed with the hospitalist. He will admit the patient to his service. Patient understood and was agreeable with plan. All questions were answered. Discharge Plan Dx/Rx/DC Orders Clinical Impression: Alcohol dependence, Acute alcohol intoxication, Tobacco abuse Disposition Disposition: Acute Care Hospital [facility] Discharge Date/Time: 01/28/25 18:52
--- NOTE | 2025-01-28 18:00 | PCM.HP.STD ---
HPI - General General Date of Admission: 01/28/25 Date of Service: 01/28/25 Chief Complaint: Alcohol detox HPI Narrative OSVALDO VASQUES, is a 45 M who presented to [facility] ED on 01/28/2025 for alcohol detox. Patient was very recently hospitalized here from 01/24-01/26 for alcohol detox. He tolerated the phenobarbital taper well while here. Addiction medicine/counseling services worked with him here and plan on discharge was for him to go to the [facility] given he is recently homeless for a short time before then going to [facility] in [place] for inpatient treatment. Patient states that shortly after leaving the hospital here, he saw an old friend and began to drink heavily with them. He has drank heavily over the past 2-1/2 days now. Was drinking approximately 24 beers daily prior to his previous admission and states he has been about the same the past few days. Last drink was 1 hour prior to coming into the ED today. In the ED he was normotensive, with normal sinus rhythm and stable on room air at rest. Given desire for detox, hospitalist was contacted for admission. I saw the patient at bedside in the ED. Patient was still acutely intoxicated when I saw him. Facial flushing was noted and he had some slurred speech during our encounter. He was quite emotional and cried at multiple points during our conversation. He stated that he knew he needed help and it was difficult for him to go to the sedation normally prior to going to inpatient treatment. He does note that he still wants to go to [facility] if possible. No other acute concerns currently. Will be admitted for further management. PFSH Medical History Anxiety Depression Smoker Alcoholism Alcohol dependence Smoker Alcohol abuse Allergy/AdvReac Type Severity Reaction Status Date / Time No Known Allergies Allergy Verified 01/28/25 17:16 Family History Other Cancer Hypertension Social History Smoking Status: Current every day smoker tobacco type: cigarettes ROS Constitutional Constitutional: Denies chills, fatigue, fever(s) or weakness Eyes Eyes: Denies change in vision Cardiovascular Cardiovascular: Denies chest pain Respiratory/Chest Respiratory/Chest: Denies shortness of breath at rest Gastrointestinal Gastrointestinal: Denies abdominal pain Musculoskeletal Musculoskeletal: Denies arthralgias or myalgias Neurologic Neurologic: Denies dizziness, focal weakness or headache(s) Psychiatric Psychiatric: Reports anxiety and depression Vital Signs Vital Signs Vital Signs: 01/28/25 17:16 Temperature 97.9 F Temperature Source Temporal Pulse Rate 87 Respiratory Rate 15 Blood Pressure 113/73 Blood Pressure Mean 86 Pulse Ox 98 Oxygen Delivery Method Room Air Weight Weight: 66.5 kg Body Mass Index (BMI) 25.1 Physical Exam Const alert, oriented x3, no apparent distress and average body habitus Constitutional Narrative: Middle-age male, acutely intoxicated with alcohol, facial flushing noted, emotional during encounter but was otherwise answering my questions appropriately and in no acute distress. General Appearance: cooperative and comfortable HEENT normocephalic, head/scalp atraumatic, hearing grossly normal bilaterally, nasal mucous membranes and turbinates normal and moist oral mucous membranes Eyes PERRL, EOMs intact bilaterally and conjunctivae normal Neck full ROM Chest inspection of chest normal Resp normal respiratory effort, normal air movement, no use of accessory muscles and clear to auscultation bilaterally Cardio regular rate, regular rhythm, no murmurs and peripheral pulses 2+ throughout GI normal to inspection, nondistended, normoactive bowel sounds, soft to palpation, non-tender and non-distended Back/Spine normal ROM Extremity normal to inspection, full ROM and no pedal edema Skin no rashes or lesions noted Psych mental status grossly normal Mood & Affect: depressed and anxious Results Lab / Micro Data 01/28/25 17:50 01/28/25 17:50 Assessment & Plan Assessment/Plan (1) Chronic alcohol abuse: (2) Acute alcohol intoxication: QUALIFIERS: Complication of substance-induced condition: uncomplicated Qualified Code(s): F10.920 - Alcohol use, unspecified with intoxication, uncomplicated (3) Desire for detoxification: PLAN: Plan Patient is a 45-year-old male who presented [facility] ED on 01/28/2025 for alcohol detox. 1. Chronic alcohol abuse with acute intoxication and desire for detox ? Admit under inpatient status to [facility]. Case management consulted. Patient was hospitalized here for alcohol detox very recently from 01/24-01/26. Plan was for him to go to the [facility] for a short time and then go down to [facility] in [place] for inpatient treatment, but he began drinking shortly after discharge and did not go down there. Drinking roughly 24 beers daily. Last drink 1 hour prior to admit today. Will treat again with phenobarbital taper with other as needed medications per alcohol withdrawal order set. Patient expressed he is still interested in inpatient treatment on discharge; appreciate case management recommendations. 2. Tobacco dependence ? Nicotine replacement therapy available per patient request. Discussed cessation on discharge. 3. Elevated transaminases ? AST 200, ALT 193, alk phos 136 on 01/24. Repeat LFTs pending on this admission. Presumed secondary to alcoholic hepatitis. Patient denies any abdominal pain or discomfort. Follow-up repeat labs but no need for abdominal imaging at this time. 4. Anxiety/depression ? Not on any medication treatment for this. Recommend close outpatient follow-up with PCP on discharge. DVT prophylaxis: Lovenox CODE STATUS: Full code, verified Expected disposition: TBD Total clinical time spent by myself addressing the patient's medical issues, reviewing all the data, and collaborating with patient's care team: 42 minutes. Charges/Coding Visit Charges Inpatient E&M: 07549 Init Hosp L1
[2025-01-28 18:12] LABS: Hematocrit 40.6 % (40-54); Hemoglobin 14.1 g/dL (13.0-16.5); Immature Granulocytes Count 0.030 X10^3/uL (0.0-0.0); Mean Corp Hgb Conc 34.7 g/dL (32-36); Mean Corpuscular Volume 96.7 fL (80-94); Mean Platelet Vol. 9.3 fl (6.2-12.0); NRBC Flagged by Analyzer 0 % (0-5); Platelet Count 338 K/mm3 (150-450); RBC Distribution Width CV 12.3 % (11.6-14.6); RBC Distribution Width SD 43.8 fl (35.1-43.9); Red Blood Count 4.20 M/mm3 (4.6-6.2); White Blood Count 7.2 K/mm3 (4.4-11.0)
[2025-01-28 18:13] VITALS: BP 113/73; PULSE 87; RESP 15; TEMP 36.6; O2SAT 98
--- OUTSIDE RECORDS SUMMARY | 2025-01-28 18:24 | XMS RPT_ITS | CCD ---
Author Organization [facility] Care Team Providers Care Excelsior Machine Tender Name Role Phone SERVANDO NULL DO Attending Unavailable SERVANDO NULL DO Primary Care Unavailable SERVANDO NULL DO Admitting Unavailable Reid Rankin MD Primary Care Provider BARRETT CEDILLO Admitting Unavailable REID RANKIN Primary Care Unavailable MACIEL JANE Attending Unavailable Care Physician, No Primary Primary Care Unava ilable Servando Villalta Admitting Unavailable Servando Gaytan Attending Unavailable Servando Villalta Consulting Unavailable Raúl Ramirez Consulting Unavailable Servando Villalta Admitting Unavailable Care Physician, No Primary Primary Care Unava ilable Servando Villalta Consulting Unavailable Servando Villalta Attending Unavailable Raúl Ramirez Attending Unavailable Raúl Ramirez Consulting Unavailable Servando Gaytan Attending Unavailable Servando Gaytan Consulting Unavailable Medications Current Medications Medication Drug Class(es) Dates Sig (Normalized) Sig (Original) polyethylene glycol 3350 25359 mg powder for oral solution (4 sources) Osmotic Laxative Start: 08-16-2023 End: 08-28-2023 take 17 g by mouth once daily polyethylene glycol, PEG, 3350 (Miralax) 17 g packet Indications: Constipation by delayed colonic transit Take 17 g by mouth daily for 12 days. 3 packet 3 08/16/2023 08/28/2023 Active Completed/Discontinued Medications Medication Drug Class(es) Dates Sig (Normalized) Sig (Original) dicyclomine hydrochloride 20 mg oral tablet (2 sources) Anticholinergic Start: 08-29-2024 End: 09-02-2024 docusate sodium 50 mg / sennosides, snf 8.6 mg oral tablet (2 sources) Start: 08-29-2024 End: 09-02-2024 take 2 tablets by mouth every twenty-four hours as needed for constipation folic acid 1 mg oral tablet (2 sources) Start: 08-29-2024 End: 09-02-2024 take 1 mg by mouth once daily 1 mg, Oral, Daily, First dose on Sun08/29/24 at 1640 gabapentin 300 mg oral capsule (2 sources) Anti-epileptic Agent Start: 08-29-2024 End: 09-02-2024 take 1 capsule by mouth every eight hours 300 mg, Oral, Every 8 hours, First dose on Sun08/29/24 at 1640, Hold for excessive sedation hydrOXYzine pamoate 25 mg oral capsule (2 sources) Antihistamine Start: 08-29-2024 End: 09-02-2024 take 1 capsule by mouth every six hours as needed for anxiety 50 mg, Oral, Every 6 hours PRN, anxiety, Starting on Sun08/29/24 at 1639 loperamide hydrochloride 2 mg oral capsule (2 sources) Opioid Agonist Start: 08-29-2024 End: 09-02-2024 nicotine 2 mg chewing gum (18 sources) Cholinergic Nicotinic Agonist Start: 08-30-2024 End: 09-02-2024 4 mg, Mouth/Throat, Every 1 hour PRN, smoking cessation, nicotine craving, urge to smoke, Starting on Sun08/30/24 at 2350, Instruct patient to chew into gum, then place between the cheek and gum to enhance absorption. To increase chances of quitting, recommended to chew and park at least 9 pieces per day in the first 6 weeks of cessation., Indications: Nicotine Dependence Start: 08-30-2024 End: 09-02-2024 2 mg, Mouth/Throat, As neede d, smoking cessation, Starting on Sun08/30/24 at 1649 Start: 08-29-2024 End: 08-30-2024 apply 1 dose transdermal route every twenty-four hours, then apply 1 dose transdermal route once at bedtime 1 patch, TransDERmal, Administer over 24 Hours, Once, On Sun08/29/24 at 1340, For 1 dose, Apply new patch to nonhairy, clean, dry skin on the upper body or upper outer arm. Rotate patch sites. Notify Pharmacy if patient or provider prefers patch to be removed at bedtime and replaced in the morning. Start: 07-27-2023 End: 08-26-2023 nicotine polacrilex (Commit) 4 MG lozenge Indications: Tobacco use disorder Dissolve 1 lozenge (4 mg) in the mouth every 2 hours as needed for smoking cessation. 100 lozenge 07/27/2023 Active ondansetron 8 mg oral tablet (2 sources) Serotonin-3 Receptor Antagonist Start: 08-29-2024 End: 09-02-2024 take 1 tablet by mouth every six hours as needed for nausea and vomiting 4 mg, Oral, Every 6 hours PRN, nausea, vomiting, Starting on Sun08/29/24 at 1639 PHENobarbital 32 mg oral tablet (6 sources) Start: 08-31-2024 End: 09-02-2024 take 1 tablet by mouth every six hours as needed 32.4 mg, Oral, Every 6 hours PRN, alcohol withdrawal (only give if CIWA > 6), Starting on Sun09/01/24 at 0906 Start: 08-29-2024 End: 08-29-2024 take 97.2 mg by mouth once 97.2 mg, Oral, Once, On Sun08/29/24 at 1445, For 1 dose 1000 ml sodium chloride 9 mg/ml injection (4 sources) Start: 08-29-2024 End: 08-29-2024 1,000 mL, IntraVENous, at 1,000 mL/hr, Administer over 1 Hours, Once, On Sun08/29/24 at 1515, For 1 dose thiamine 100 mg oral tablet (12 sources) Start: 08-29-2024 End: 09-02-2024 take 100 mg by mouth three times daily 100 mg, Oral, 3 times daily, First dose on Sun08/29/24 at 1640 Start: 07-27-2023 End: 07-26-2024 take 1 tablet by mouth once daily thiamine (Vitamin B-1) 100 MG tablet Indications: Alcohol use disorder Take 1 tablet (100 mg) by mouth daily. 30 tablet 11 07/27/2023 07/26/2024 Active traZODone hydrochloride 100 mg oral tablet (4 sources) Serotonin Reuptake Inhibitor Start: 08-29-2024 End: 09-02-2024 take 100 mg by mouth once daily as needed for sleep 100 mg, Oral, Nightly PRN, sleep, Starting on Sun09/01/24 at 1400 Problems Active Problems Problem Classification Problem Date Documented Da te Episodic/Chronic Alcohol-related disorders (12 sources) Alcohol withdrawal syndrome; Translations: [Alcohol abuse with withdrawal (HCC)] Onset: 07-27-2023 08-29-2024 Chronic Alcohol-related disorders (2 sources) Alcohol use, unspecified with intoxication, uncomplicated; Translations: [Alcohol use, unspecified with intoxication, uncomplicated] Onset: 01-26-2025 Episodic Anxiety disorders (2 sources) Other specified anxiety disorders; Translations: [Other specified anxiety disorders] Onset: 01-26-2025 Chronic Disorders of lipid metabolism (10 sources) Mixed hyperlipidemia; Translations: [Mixed hyperlipidemia] Onset: 08-16-2023 08-16-2023 Chronic Other screening for suspected conditions (not mental disorders or infectious disease) (8 sources) Screening due; Translations: [Encounter for screening, unspecified] 07-27-2023 Episodic Residual codes; unclassified (14 sources) Alcoholism; Translations: [Alcohol use disorder] Onset: 07-27-2023 07-27-2023 Episodic Residual codes; unclassified (2 sources) Tobacco use; Translations: [Tobacco use] Onset: 01-26-2025 Episodic Substance-related disorders (20 sources) Tobacco user; Translations: [Nicotine dependence, unspecified, uncomplicated] Onset: 07-27-2023 07-27-2023 Chronic Unclassified (1 source) Alcohol abuse with withdrawal, unspecified (HCC); Translations: [Alcohol abuse with withdrawal, unspecified (HCC)] Onset: 09-01-2024 Past or Other Problems Problem Classification Problem Date Documented Da te Episodic/Chronic Mood disorders (12 sources) Mood disorders Onset: 07-27-2023 Resolved: 08-29-2024 07-27-2023 Other gastrointestinal disorders (18 sources) Finding of abdomen; Translations: [Other specified symptoms and signs involving the digestive system and abdomen] Onset: 07-27-2023 07-27-2023 Episodic Other gastrointestinal disorders (10 sources) Slow transit constipation; Translations: [Slow transit constipation] Onset: 08-16-2023 08-16-2023 Episodic Other nutritional; endocrine; and metabolic disorders (12 sources) Body mass index 25-29 - overweight; Translations: [Overweight] Onset: 07-27-2023 07-27-2023 Episodic Unclassified (1 source) Alcohol abuse with withdrawal, unspecified (HCC); Translations: [Alcohol abuse with withdrawal, unspecified (HCC)] Onset: 08-29-2024 Results Test Name Value Interpretation Reference Range Facility Alcohol, Blood (Medical)-Ser saima 01-24-2025 SERUM ETOH 186.0 mg/dL High <=10.0 [facility] Comment on above: Result Comment: This test is for medical purposes only. The legal definition of intoxication varies according to local law. Performed By: #### L 500.2500, L501.9100, L100.0100, L505.5000 ####[facility] [address] [place], [address] Basic Metabolic Profile (BMP )on 01-24-2025 BUN/CRE 5.7 RATIO Low 10-20 [facility] Comment on above: Performed By: #### L 500.2500, L501.9100, L100.0100, L505.5000 #### [facility] [address] [place], [address] Calcium [Mass/Vol] 8.8 mg/dL Normal 7.6-11.0 [facility] Comment on above: Performed By: #### L 500.2500, L501.9100, L100.0100, L505.5000 #### [facility] [address] [place], [address] Chloride [Moles/Vol] 97 mmol/L Low 98-108 [facility] Comment on above: Performed By: #### L 500.2500, L501.9100, L100.0100, L505.5000 #### [facility] [address] [place], [address] CO2 [Moles/Vol] 24.6 mmol/L Normal 21.0-32.0 [facility] Comment on above: Performed By: #### L 500.2500, L501.9100, L100.0100, L505.5000 #### [facility] [address] [place], [address] Creatinine [Mass/Vol] 0.72 mg/dL Normal 0.70-1.20 [facility] Comment on above: Performed By: #### L 500.2500, L501.9100, L100.0100, L505.5000 #### [facility] [address] [place], [address] GAP 12 Normal 5-15 [facility] Comment on above: Performed By: #### L 500.2500, L501.9100, L100.0100, L505.5000 #### [facility] [address] [place], [address] GFR/1.73 sq M.predicted among non-blacks MDRD (S/P/Bld) [Vol rate/Area] 116 mL/min/{1.73_m2} Normal >60 [facility] Comment on above: Result Comment: mL/m in/1.73m2 CKD-EPI Creatinine Equation (2020) Performed By: #### L 500.2500, L501.9100, L100.0100, L505.5000 #### [facility] [address] [place], [address] Glucose [Mass/Vol] 94 mg/dL Normal 70-99 [facility] Comment on above: Performed By: #### L 500.2500, L501.9100, L100.0100, L505.5000 #### [facility] [address] [place], [address] Potassium [Moles/Vol] 3.8 mmol/L Normal 3.3-5.1 [facility] Comment on above: Performed By: #### L 500.2500, L501.9100, L100.0100, L505.5000 #### [facility] [address] [place], [address] Sodium [Moles/Vol] 134 mmol/L Normal 133-145 [facility] Comment on above: Performed By: #### L 500.2500, L501.9100, L100.0100, L505.5000 #### [facility] [address] [place], [address] Urea nitrogen [Mass/Vol] 4 mg/dL Normal 4-19 [facility] Comment on above: Performed By: #### L 500.2500, L501.9100, L100.0100, L505.5000 #### [facility] [address] [place], [address] CBC W/Diff, Automatedon 10- Absolute Lymph 3.09 X10 3/uL Normal 0.83-4.51 [facility] Comment on above: Performed By: #### L 500.2500, L501.9100, L100.0100, L505.5000 #### [facility] [address] [place], [address] Absolute Neut 2.7 X10 3/uL Normal 2.0-7.7 [facility] Comment on above: Performed By: #### L 500.2500, L501.9100, L100.0100, L505.5000 #### [facility] [address] [place], [address] Basophils/100 WBC (Bld) 1.6 % High 0-1 [facility] Comment on above: Performed By: #### L 500.2500, L501.9100, L100.0100, L505.5000 #### [facility] [address] [place], [address] Eosinophils/100 WBC (Bld) 6.9 % High 0-5 [facility] Comment on above: Performed By: #### L 500.2500, L501.9100, L100.0100, L505.5000 #### [facility] [address] [place], [address] Erythrocyte distribution width (RBC) [Ratio] 12.5 % Normal 11.6-14.6 [facility] Comment on above: Performed By: #### L 500.2500, L501.9100, L100.0100, L505.5000 #### [facility] [address] [place], [address] Hematocrit (Bld) [Volume fraction] 44.5 % Normal 40-54 [facility] Comment on above: Performed By: #### L 500.2500, L501.9100, L100.0100, L505.5000 #### [facility] [address] [place], [address] Hemoglobin (Bld) [Mass/Vol] 15.6 g/dL Normal 13.0-16.5 [facility] Comment on above: Performed By: #### L 500.2500, L501.9100, L100.0100, L505.5000 #### [facility] [address] [place], [address] IG% 0.300 Normal 0.0-0.9 [facility] Comment on above: Result Comment: IG% - Immature Granulocytes (promyelocytes, myelocytes and metamyelocytes) > 1% indicates that a LEFT SHIFT is Present. Performed By: #### L 500.2500, L501.9100, L100.0100, L505.5000 #### [facility] [address] [place], [address] Lymphocytes/100 WBC (Bld) 44.1 % High 19-41 [facility] Comment on above: Performed By: #### L 500.2500, L501.9100, L100.0100, L505.5000 #### [facility] [address] [place], [address] MCH (RBC) [Entitic mass] 33.4 pg High 27.0-32.0 [facility] Comment on above: Performed By: #### L 500.2500, L501.9100, L100.0100, L505.5000 #### [facility] [address] [place], [address] MCHC (RBC) [Mass/Vol] 35.1 g/dL Normal 32-36 [facility] Comment on above: Performed By: #### L 500.2500, L501.9100, L100.0100, L505.5000 #### [facility] [address] [place], [address] MCV (RBC) [Entitic vol] 95.3 fL High 80-94 [facility] Comment on above: Performed By: #### L 500.2500, L501.9100, L100.0100, L505.5000 #### [facility] [address] [place], [address] Monocytes/100 WBC (Bld) 9.1 % Normal 0-10 [facility] Comment on above: Performed By: #### L 500.2500, L501.9100, L100.0100, L505.5000 #### [facility] [address] [place], [address] Neutrophils/100 WBC (Bld) 38.0 % Low 47-70 [facility] Comment on above: Performed By: #### L 500.2500, L501.9100, L100.0100, L505.5000 #### [facility] [address] [place], [address] Nucleated RBC (Bld) [#/Vol] 0 10*3/uL Normal 0-5 [facility] Comment on above: Performed By: #### L 500.2500, L501.9100, L100.0100, L505.5000 #### [facility] [address] [place], [address] Platelet mean volume (Bld) [Entitic vol] 9.4 fL Normal 6.2-12.0 [facility] Comment on above: Performed By: #### L 500.2500, L501.9100, L100.0100, L505.5000 #### [facility] [address] [place], [address] Platelets (Bld) [#/Vol] 290 10*3/uL Normal 150-450 [facility] Comment on above: Performed By: #### L 500.2500, L501.9100, L100.0100, L505.5000 #### [facility] [address] [place], [address] RBC (Bld) [#/Vol] 4.67 10*6/uL Normal 4.6-6.2 [facility] Comment on above: Performed By: #### L 500.2500, L501.9100, L100.0100, L505.5000 #### [facility] [address] [place], [address] RDW SD 43.8 fl Normal 35.1-43.9 [facility] Comment on above: Performed By: #### L 500.2500, L501.9100, L100.0100, L505.5000 #### [facility] [address] [place], [address] WBC (Bld) [#/Vol] 7.0 10*3/uL Normal 4.4-11.0 [facility] Comment on above: Performed By: #### L 500.2500, L501.9100, L100.0100, L505.5000 #### [facility] [address] [place], [address] Emergency Department Summary on 01-24-2025 Emergency Department Summary [facility] Medical Records Department [address] [place] [address] Emergency Department Summary 01/24/25 MR#: [id number] Acct: [id number] Name: CAPRICEOSVALDO DELMAR Rep #: [id number] : 1980 45 From: Fernando Lucero DO PCP: Care Physician,No Primary Status:REG ER Location: ED HPI History of Present Illness Chief Complaint: ETOH Intox Informant: patient Narrative Narrative: Patient is a 45-year-old male with past medical history of anxiety depression and alcohol abuse/alcoholism. He states he drinks roughly 24 beers per day. He reports that he has been through detox/rehab in the past and has done well for months to years but has recently relapsed. He states that he does not use any type of illicit drugs. He reports that he wishes to go through rehab once again. He states his last drink was roughly 1 hour prior to arrival. [facility] Medical History Anxiety Depression Smoker Alcoholism Alcohol dependence Smoker Alcohol abuse Home Medications ???Medication ???Instructions ???Recorded ???Last Taken ???Type NK 09/10/20 Unknown History multivitamin 1 tab PO DAILY #30 tabs 11/15/22 U nknown Rx Allergy/AdvReac Type Severity Reaction Status Date / Time No Known Allergies Allergy Verified 01/24/25 00:17 Family History Other Cancer Hypertension Social History Smoking Status: Current every day smoker tobacco type: cigarettes and smokeless tobacco ROS ROS ED Constitutional Constitutional ED: Denies chills or fever(s) Eyes Eyes: Denies blurry vision or change in vision ENT ENT ED: Denies sore throat Cardiovascular Cardiovascular: Denies chest pain, palpitations or racing heartbeat Respiratory/Chest Respiratory/Chest: Denies cough or dyspnea Gastrointestinal Gastrointestinal: Denies abdominal pain, diarrhea, nausea or vomiting Musculoskeletal Musculoskeletal: Denies myalgias Integumentary Denies rash Neurologic Neurologic: Denies headache(s) or paresthesias Psychiatric Psychiatric: Denies suicidal ideation or suicidal thoughts Hematologic/Lympha tic Hematologic/Lympha tic: Denies easy bleeding or easy bruising EXAM Physical Exam Const Vital Signs: 01/24/25 00:17 01/24/25 00:29 01/24/25 01:10 Temperature 98.2 F 97 F L Temperature Source Temporal Temporal Pulse Rate 97 94 89 Respiratory Rate 15 16 15 Blood Pressure 139/92 H 120/80 120/80 Blood Pressure Mean 107 93 93 Blood Pressure Source Monitor Monitor Pulse Ox 98 99 99 Oxygen Delivery Method Room Air Room Air Room Air 01/24/25 02:00 01/24/25 02:25 Temperature 97.8 F Temperature Source Pulse Rate 92 92 Respiratory Rate 16 16 Blood Pressure 125/70 H 140/88 H Blood Pressure Mean 88 105 Blood Pressure Source Pulse Ox 99 99 Oxygen Delivery Method Room Air Positive well nourished and well developed General Appearance ED: well developed; Negative for pallor HEENT HEENT Narrative: Normocephalic atraumatic Eyes PERRL and EOMs intact bilaterally General Eye ED: Negative for scleral icterus Neck supple Neck Narrative: No nuchal rigidity or meningeal signs Resp normal respiratory effort and clear to auscultation bilaterally Cardio regular rate and regular rhythm GI normal to inspection, nondistended, normoactive bowel sounds, non-tender, non-distended and no masses Auscultation: normoactive bowel sounds Palpation: soft Extremity normal to inspection Neuro oriented x3, CN's II-XII intact bilaterally and no sensory deficits noted Sensorium / Orientation: alert Motor Exam: strength 5/5 throughout Psych mental status grossly normal Psych Narrative: No homicidal or suicidal ideation Skin no wounds General Skin Exam: Negative for jaundice or pallor MDM MDM MDM Narrative Medical decision making narrative: Patient arrived to the ER mildly hypertensive otherwise with stable vitals. He presents for potential detox from alcohol. By history and physical exam he does not have signs of acute alcohol withdrawal. However as he does drink reportedly 24 beers a day he has high likelihood of progressing to alcohol withdrawal and delirium tremens. As he is high risk for decompensation if not treated basic labs were obtained for medical clearance. Patient's liver enzymes are slightly elevated consistent with alcohol use but otherwise show no clinically significant findings other than the elevated alcohol level consistent with his history of being an alcoholic. At this time he is not showing findings of acute withdrawal so there is no need for Ativan or phenobarbital. However as he we will need admitted for alcohol detox the case was discussed wi (more content not included)... Normal [facility] Folates,Serum (Folic Acid)on 01-24-2025 FOLATES,SERUM 12.70 ng/mL Normal 4.60-34.80 [facility] Comment on above: Result Comment: Hemo lysis, Results will be affected, Requires Recollection. Performed By: #### L 506.0200, L300.3900 #### [facility] [address] [place], [address] H AND P Exam - [facility] 01-24-2025 H&P Exam - Hospitalist [facility] Medical Records Department [address] [place] [address] H P Exam - Hospitalist 01/24/25 0205 MR#: [id number] Acct: [id number] Name: OSVALDO CHRISTY Rep #: [id number] : 1980 45 From: Servando Villalta DO PCP: Care Physician,No Primary Status:ADM IN [facility] - General General Date of Admission: 01/24/25 Date of Service: 01/24/25 Chief Complaint: Requesting EtOH Detox. HPI Narrative OSVALDO CHRISTY, is a 45 M with a past medical history of depression with anxiety; currently not on treatment, tobacco abuse and chronic EtOH abuse; 24 beers/day x 20 years with last admission here from November 13, 2022 to November 16, 2022 for treatment of EtOH withdrawal who presents to [facility] ER once again requesting EtOH detox. Mr. Christy reports he has never been able to achieve lasting sobriety in spite of being admitted to detox/rehab multiple times in the past. He states his last drink was 1 hour prior to arrival so he denies current withdrawal symptoms. He denies illicit drug use, other recent illness or other significant medical issues at this time. In the ER he was noted to have a VLADIMIR of 186 mg/dL consistent with Acute EtOH Intoxication in the setting of Chronic EtOH Abuse and he was then admitted to the general medical floor for treatment under the EtOH detoxification protocol for a stay that is expected to extend beyond 2 midnights. PFSH Medical History Anxiety Depression Smoker Alcoholism Alcohol dependence Smoker Alcohol abuse Home Medications ???Medication ???Instructions ???Recorded ???Last Taken ???Type NK 09/10/20 Unknown History multivitamin 1 tab PO DAILY #30 tabs 11/15/22 U nknown Rx Allergy/AdvReac Type Severity Reaction Status Date / Time No Known Allergies Allergy Verified 01/24/25 00:17 Family History Other Cancer Hypertension Social History Smoking Status: Current every day smoker tobacco type: cigarettes and smokeless tobacco ROS ROS Narrative Review of Systems: Constitutional: Patient denies fever or chills. Eyes: Patient denies changes in vision or discharge from eyes. ENT: Patient denies runny nose, sore throat or ear pain. Resp: Patient denies SOB or cough. CV: Patient denies chest pain, palpitations, heart racing or LE edema. GI: Patient denies abdominal pain, nausea, vomiting, diarrhea or constipation. : Patient denies dysuria or hematuria. MSK: Patient denies arthralgias or myalgias. Skin: Patient denies rash, abscess, wounds or jaundice. Psych: Patient admits to depression and anxiety but he denies SI or HI. Neuro: Patient denies headache, paresthesias or focal neurologic deficits. Allergy: Patient denies lip swelling, tongue swelling or urticaria. Hematology: Patient denies easy bleeding or easy bruisability. Endocrinology: Patient denies polyuria, polydipsia, polyphagia or heat/cold/intolera nce. 14 point ROS otherwise negative except for positives noted above in HPI. Vital Signs Vital Signs Vital Signs: 01/24/25 00:17 01/24/25 00:29 01/24/25 01:10 Temperature 98.2 F 97 F L Temperature Source Temporal Temporal Pulse Rate 97 94 89 Respiratory Rate 15 16 15 Blood Pressure 139/92 H 120/80 120/80 Blood Pressure Mean 107 93 93 Blood Pressure Source Monitor Monitor Pulse Ox 98 99 99 Oxygen Delivery Method Room Air Room Air Room Air 01/24/25 02:00 Temperature Temperature Source Pulse Rate 92 Respiratory Rate 16 Blood Pressure 125/70 H Blood Pressure Mean 88 Blood Pressure Source Pulse Ox 99 Oxygen Delivery Method Room Air Physical Exam Const alert, oriented x3, no apparent distress, average body habitus and healthy appearing General Appearance: cooperative HEENT normocephalic, head/scalp atraumatic, hearing grossly normal bilaterally and moist oral mucous membranes Eyes PERRL and EOMs intact bilaterally Neck no lymphadenopathy, supple and no JVD Resp normal respiratory effort, no retractions, no use of accessory muscles and clear to auscultation bilaterally Cardio regular rate and regular rhythm GI normal to inspection, nondistended, normoactive bowel sounds, soft to palpation, non-tender and non- distended Extremity normal to inspection, full ROM and no clubbing, cyanosis or edema Skin Skin Narrative: Patient has no evidence of rash, abscess, wounds or jaundice. Neuro oriented x3, CN's II-XII intact bilaterally, moves all extremities and no focal motor deficits Sensorium / Orientation: awake, alert, oriented to person, oriented to place and oriented to time Speech: speech normal Psych Mood Affect: depressed and anxious Results (more content not included)... Normal [facility] Liver Profileon 01-24-2025 Albumin [Mass/Vol] 4.2 g/dL Normal 3.5-5.0 [facility] Comment on above: Performed By: #### L 500.3400 #### [facility] [address] [place], [address] ALK PHOS 136 U/L High 40-129 [facility] Comment on above: Performed By: #### L 500.3400 #### [facility] [address] [place], [address] ALT [Catalytic activity/Vol] 193 U/L High <=46 [facility] Comment on above: Performed By: #### L 500.3400 #### [facility] [address] [place], [address] AST [Catalytic activity/Vol] 200 U/L High <=37 [facility] Comment on above: Performed By: #### L 500.3400 #### [facility] [address] [place], [address] Bilirubin [Mass/Vol] 0.52 mg/dL Normal 0.00-1.30 [facility] Comment on above: Performed By: #### L 500.3400 #### [facility] [address] [place], [address] Bilirubin.direct [Mass/Vol] 0.28 mg/dL Normal 0.00-0.30 [facility] Comment on above: Performed By: #### L 500.3400 #### [facility] [address] [place], [address] Globulin (S) [Mass/Vol] 2.8 g/dL Normal 2.2-4.2 [facility] Comment on above: Performed By: #### L 500.3400 #### [facility] [address] [place], [address] T PROT 7.0 g/dL Normal 5.9-8.4 [facility] Comment on above: Performed By: #### L 500.3400 #### [facility] [address] [place], [address] Prothrombin Time w/INRon INR Coag (PPP) [Relative time] 0.9 {INR} Normal [facility] Comment on above: Performed By: #### L 506.0200, L300.3900 #### [facility] [address] [place], [address] PT Coag (PPP) [Time] 12.5 s Normal 11.7-14.9 [facility] Comment on above: Performed By: #### L 506.0200, L300.3900 #### [facility] [address] [place], [address] Urine Drug Screen (VISTA)on 01-24-2025 AMPHETAMINES Negative Normal <1000 ng/mL [facility] Comment on above: Performed By: #### L 500.2500, L501.9100, L100.0100, L505.5000 #### [facility] [address] [place], [address] BARBITIURATES Negative Normal < 200 ng/mL [facility] Comment on above: Performed By: #### L 500.2500, L501.9100, L100.0100, L505.5000 #### [facility] [address] [place], [address] BENZODIAZIPINE Negative Normal < 200 ng/mL [facility] Comment on above: Performed By: #### L 500.2500, L501.9100, L100.0100, L505.5000 #### [facility] [address] [place], [address] BUP Ur Drug Scr Negative Normal < 200 ng/mL [facility] Comment on above: Performed By: #### L 500.2500, L501.9100, L100.0100, L505.5000 #### [facility] [address] [place], [address] COCAINE Negative Normal < 300 ng/mL [facility] Comment on above: Performed By: #### L 500.2500, L501.9100, L100.0100, L505.5000 #### [facility] [address] [place], [address] Fentanyl Negative Normal <5 ng/mL [facility] Comment on above: Result Comment: CONF IRMATORY TESTING FOR ALL POSITIVE URINE DRUG SCREEN RESULTS WILL ONLY BE SENT OUT UPON PHYSICIAN ORDER. Kvng Pro Urine Drug Screen methods provide only preliminary analytical test results. A more specific alternate chemical method must be used in order to obtain a confirmed analytical result. Gas chromatography/mass spectrometery (GC/MS) is the preferred confirmatory method. Clinical consideration and professional judgement should be applied to any drug of abuse test result, particularly when preliminary positive results are used. Urine TCA testing must be ordered separately. Use test mnemonic: UTCA Performed By: #### L 500.2500, L501.9100, L100.0100, L505.5000 #### [facility] [address] [place], [address] METHADONE Negative Normal < 300 ng/mL [facility] Comment on above: Performed By: #### L 500.2500, L501.9100, L100.0100, L505.5000 #### [facility] [address] [place], [address] OPIATES Negative Normal < 300 ng/mL [facility] Comment on above: Performed By: #### L 500.2500, L501.9100, L100.0100, L505.5000 #### [facility] [address] [place], [address] OXYCODONE Negative Normal < 100 ng/mL [facility] Comment on above: Performed By: #### L 500.2500, L501.9100, L100.0100, L505.5000 #### [facility] [address] [place], [address] PCP Negative Normal < 25 ng/mL [facility] Comment on above: Performed By: #### L 500.2500, L501.9100, L100.0100, L505.5000 #### [facility] [address] [place], [address] THC Negative Normal < 50 ng/mL [facility] Comment on above: Performed By: #### L 500.2500, L501.9100, L100.0100, L505.5000 #### [facility] [address] [place], [address] Vitamin B12on 01-24-2025 Cobalamin (Vitamin B12) [Mass/Vol] 1099 pg/mL High 180-914 [facility] Comment on above: Performed By: #### L 503.0106 #### [facility] [address] [place], [address] [id number] 09-02-2024 [id number] INTER COM SERVICER saw patient to discuss aftercare plans and treatment post discharge. Patient was reminded about appointments. Patient declined assistance with aftercare appointments. 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 Patient denied current SI/HI/AVH. Patient provided with a bus pass in order to return to the [facility]. Bus pass entered into careport. Patient denied needing anything further from INTER COM SERVICER at the time. INTER COM SERVICER informed patient's nurse about conversation. [facility] [phone] INTER COM SERVICER was consulted in order to address patient's identified social determinants of health. Patient was determined to have been identified for: Housing Food Insecurities Patient provided with extensive community's resource sheet for both identified areas. INTER COM SERVICER will continue to work with patient and provide resources that will allow for identified community assistance for patient that will address identified social determinates of health. [facility] Nursing Noteon 09-02-2024 Nursing Note Dc teaching completed. Pt verbalizes understanding of dc instructions. Normal [facility] Nursing Note #20 gauge insyte removed from RFA. Cath intact. Pt tolerated without difficulty, [facility] Nursing Note Pleasant, cooperative, compliant with medication. Appetite is good. Future oriented. Minimal WD symptoms. States he is doing fine. Social. Out in the milieu. Voices no other concerns. Denies si/hi/ah/vh. Normal [facility] Nursing Note Patient up, social with peers with appropriate behavior. Patient takes medications with ease. Patient has a stead gait. Patient is able to make needs known. [facility] 94on 09-01-2024 94 Department: [facility] Group Topic: Recreation Therapy Group Date: 09/01/2024 Start Time: 1125 End Time: 1215 Facilitators: Leonor Cochran Number of Participants: 7 Group Name: Recreation Therapy Treatment Modality: Recreation Therapy Purpose: enhance coping skills, build self awareness, reconnect to leisure, support socialization Summary: conversation questions (3)- To allow Patients the opportunity to explore self awareness and socialization through leisure engagement. Discussion to focus on their experience of participation, as well as, the process of reconnection to leisure interests. Name: Osvaldo Christy Date of : 1980 MR: [id number] Appearance: Good eye contact Affect: Appropriate Behavior: Pleasant Alertness: Alert Speech: Appropriate Level/Quality of Participation: engaged Interactions with others: supportive Interventions utilized were Building rapport and engagement and Empathic listening Patient's Response to Intervention: Patient engaged fully in intervention. Patient was observed being interactive with peers and laughing during the group at times. Encouragement offered in utilizing healthy leisure pursuits to support coping and recovery. Continue to encourage patient participation in groups. Patients Problems: Patient Active Problem List Diagnosis Severe alcohol use disorder (HCC) Tobacco use disorder Overweight (BMI 25.0-29.9) Abdominal fullness in left upper quadrant Constipation by delayed colonic transit Hyperlipidemia Alcohol withdrawal with inpatient treatment, uncomplicated (HCC) [facility] 94 Department: [facility] Group Topic: Recreation Therapy Group Date: 08/31/2024 Start Time: 1605 End Time: 1658 Facilitators: Leonor Cochran Number of Participants: 10 Group Name: Recreation Therapy Treatment Modality: Recreation Therapy Purpose: enhance coping skills, reconnect to leisure, increase socialization Summary: Reconnect to Leisure: Patients were given the opportunity to engage in a healthy leisure pursuit. Group purpose is to support patients in reconnecting to the positive benefits of participation in leisure/recreation activities. Patients were offered support as needed. Discussion focused on the experience of participation. Name: Osvaldo Christy Date of : 1980 MR: [id number] Appearance: Good eye contact Affect: Appropriate Behavior: Pleasant Alertness: Alert Speech: Appropriate Level/Quality of Participation: engaged Interactions with others: supportivel, humor Interventions utilized were Building rapport and engagement Patient's Response to Intervention: Patient engaged in intervention pop culture trivia with demonstrated focus. Patient had good eye contact during interaction. Patient was observed engaging with peers and being able to laugh during the group. Patient supported in utilizing recreation to support wellness and recovery. Continue to encourage group participation as appropriate. Patients Problems: Patient Active Problem List Diagnosis Severe alcohol use disorder (HCC) Tobacco use disorder Overweight (BMI 25.0-29.9) Abdominal fullness in left upper quadrant Constipation by delayed colonic transit Hyperlipidemia Alcohol withdrawal with inpatient treatment, uncomplicated (HCC) [facility] Nursing Noteon 09-01-2024 Nursing Note Pt denies suicidal and homicidal ideation. Pt denies visual hallucinations and auditory hallucinations. Pt denies delusions. Affect is mood-congruent and mood is euthymic. Overall cooperative. Pt is compliant with scheduled medication. He is social with peers. Patient encouraged to seek out staff with questions or concerns. Plan of care ongoing. [facility] Nursing Note Pt medicated with vistaril for anxiety [facility] Progress Noteon 09-01-2024 Progress Note Behavioral Health Psycho-Social Assessment (Social Work) Date: 09/01/2024 Patient Name: Osvaldo Christy : 1980 Identifying Information: Patient is a 44 year old male admitted to for alcohol withdrawal. Presenting Problem: Patient presented with a request for alcohol detox, stating he has been drinking more than a 12 pack of beer daily. Psychiatric History: Patient declines psychiatric history or treatment. Substance Abuse/Use: UDS upon admission was negative. Ethanol level was 251. He reports drinking 12-24 beers daily. He has been drinking for about 20 years, has tried inpatient treatment in the past. Today is wanting AA only so he can return to work and keep his apartment. Medical/Self-care Issues: Self care concerns related to alcohol use. 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 Does not disclose trauma or history. Family Constellation/Chil dhood History: Patient does not provide family history. He notes he has an apartment he needs to keep, declines residential treatment. Education/Work: Patient works at [employer], unsure if he still has his job. Cultural/Spiritual ity/Leisure: No cultural or spiritual preferences or concerns are reported. Support Systems/Collateral Information: Patient does not identify support persons. C-SSRS Actual Attempt (Past 3 Months): No Interrupted Attempts (Past 3 Months): No Aborted or Self-Interrupted Attempt (Past 3 Months): No Preparatory Acts or Behavior (Past 3 Months): No Has subject engaged in non-suicidal self-injurious behavior? (Past 3 Months): No Clinical Status (Recent): Substance abuse or dependence Describe any suicidal, self-injurious or aggressive behavior (include dates): no suicidal or self injurious behavior reported Plan: Patient was seen in the common area on the unit. He declines needing to speak with social work, although is polite. He intends to leave detox tomorrow and follow up with AA. He declines needing AA meeting information. He declines needing other treatment options stating he needs to be working and paying his bills. He asks if INTER COM SERVICER could get him a cab to [facility] when he discharges as his car is parked there. INTER COM SERVICER will continue attempts to engage patient in treatment and discharge planning. Comment: Please note this report has been produced using speech recognition software and may contain errors related to that system including errors in grammar, punctuation, and spelling, as well as words and phrases that may be inappropriate. If there are any questions or concerns please feel free to contact the dictating provider for clarification. [facility] 30on 08-31-2024 30 Progressing toward goals [facility] Nursing Noteon 08-31-2024 Nursing Note Pt alert and oriented, med compliant, pt denies SI/HI/AVH, NV&D. Pt out in group room watching TV and social with peers. Pt encouraged to update staff with any change in condition. Will monitor pt for safety. [facility] Nursing Note Bedside handoff given, pt in group room socializing with peers. [facility] Nursing Note Patient has been social for most of the day. Patient has attended the meetings and been in the day room with the other patients. Patient has voiced no concerns during this shift. Patient is steady on his feet and ambulating fine. Patient reports no nausea today. Patient has denied any SI/HI/AVD. [facility] Progress Noteon 08-31-2024 Progress Note -------- Attestation signed by Jayne Montano MD at 09/02/2024 10:07 AM I saw and evaluated the patient and participated in the dial portions of the service. I reviewed the patient's medical record and test results. I personally spent a total 55 minutes in counseling and discussion with the patient and coordination of care. This included a face to face evaluation, physical examination and documenting clinical information on the day of visit. I have reviewed the [place]'s note. I agree with the Fellow?s findings and plan. -------- ADDICTION MEDICINE PROGRESS NOTE Patient: Osvaldo Christy __ Problem List: Principal Problem: Alcohol abuse with withdrawal (HCC) SUBJECTIVE Chief Complaint Patient presents with Alcohol Problem Pt presents to the triage window stating he is an alcoholic and needs detox. Pt admits to drinking more than a 12 pack per day. States his las drink was 1 hour ago Last 4 CIWA scores per RN assessments 2 - 2 - 3 - 1 Interim History Feeling sleepy and sedated, but overall feeling minimal withdrawal symptoms Considerable diaphoresis and some anxiety remain Was able to eat and sleep well overnight Notes he is considering outpatient therapy over residential in light of wanting to keep his apartment Review of Systems Review of Systems Constitutional: Negative for chills, diaphoresis, malaise/fatigue and night sweats. Eyes: Negative for visual disturbance. Cardiovascular: Negative for chest pain. Musculoskeletal: Negative for falls. Gastrointestinal: Negative for abdominal pain, nausea and vomiting. Neurological: Negative for headaches, light-headedness and tremors. Psychiatric/Behavi oral: Negative for depression, hallucinations and suicidal ideas. The patient is not nervous/anxious. OBJECTIVE Vitals Vitals: 08/30/24 1143 08/30/24 1706 08/30/24 2312 08/31/24 0603 BP: (!) 140/102 134/85 145/87 110/67 Pulse: 93 89 89 66 Resp: 16 16 18 16 Temp: 36.7 ?C (98.1 ?F) 36.3 ?C (97.4 ?F) 36.8 ?C (98.3 ?F) 36.7 ?C (98.1 ?F) TempSrc: Temporal Temporal Temporal Temporal SpO2: 96% 95% 98% 96% Weight: Height: Physical Exam Constitutional: Appearance: Normal appearance. HENT: Mouth/Throat: Mouth: Mucous membranes are moist. Eyes: Extraocular Movements: Extraocular movements intact. Cardiovascular: Rate and Rhythm: Normal rate. Pulmonary: Effort: Pulmonary effort is normal. Abdominal: Palpations: Abdomen is soft. Musculoskeletal: General: Normal range of motion. Cervical back: Normal range of motion. Skin: General: Skin is warm. Neurological: General: No focal deficit present. Mental Status: He is alert and oriented to person, place, and time. Medications Home Meds Current Outpatient Medications Medication Instructions nicotine polacrilex (COMMIT) 4 mg, Mouth/Throat, Every 2 hour PRN Scheduled Inpatient Meds Scheduled Meds[1] PRN Inpatient Meds PRN Meds[2] Continuous Inpatient Infusions Continuous Meds[3] Recent Imaging ECG 12 lead Result Date: 08/29/2024 Sinus tachycardia No prior EKG available Electronically Signed On 08-29-2024 13:26:20 EDT by Cedrick Cuadra Labs CBC: Recent Labs 08/29/24 1353 WBC 6.5 HGB 15.3 PLT 365 MCV 92.7 RDW 14.6 BMP: Recent Labs 08/29/24 1353 NA 138 K 3.5 CL 104 CO2 20* BUN 7* CREATININE 0.71* CALCIUM 8.5 Liver Profile: Recent Labs 08/29/24 1353 AST 58* ALT 38 BILITOT 0.4 ALKPHOS 83 PROT 7.2 Glucose: Recent Labs 08/29/24 1353 GLUCOSE 92 Lactic Acid: No lab exists for component: LACTA Cardiac Injury Profile: No results for input(s): CKTOTAL, CKMB, TROPONINI in the last 72 hours. Last 24 Hours: No results found for this or any previous visit (from the past 24 hours). ASSESSMENT & PLAN Alcohol use disorder Counseled patient on biopsychosocial consequences of substance use. Encouraged professional chemical dependency treatment. Encouraged 12 step meeting attendance. Follow up plans for addiction management discussed with patient: Considering outpatient substance use resources Alcohol withdrawal Last use of alcohol was on 08/30. PNB taper to manage withdrawal symptoms. 32 q 6 hours for today. CIWA scores per unit protocol. PRN medications for withdrawal symptom management added. Encouraged to participate in all unit activities. NRT ordered Disposition: Discharge anticipated in 2-3 days. This is pending: Resolution of withdrawal symptoms. Medical stabilization. Labs/tests/tasks to review: aftercare. Consultants to coordinate care with: none. This patient was staffed with Dr. Montano. Vanda Sheth MD electronically signed this at 10:37 AM [1] fol (more content not included)... [facility] Progress Note Nutrition rescreen completed. Patient assigned a level 1. [facility] 30on 08-30-2024 30 Problem: Sensory Perceptual Alteration as Evidenced by Goal: Participates in unit activities Outcome: Progressing Problem: Sensory Perceptual Alteration as Evidenced by Goal: Notifies staff when experiencing hallucinations/del usions Outcome: Progressing Problem: Potential for Compromised Skin Integrity Goal: Nutritional status is improving Outcome: Progressing [facility] [id number] [id number] Department: [facility] Group Topic: Leisure Skills Group Date: 08/30/2024 Start Time: 1500 End Time: 1550 Facilitators: Negra Callahan Number of Participants: 9 Group Name: Social Skills Treatment Modality: Leisure Development Purpose: enhance coping skills Summary: To expose patients to healthy leisure outlets. Name: Osvaldo Christy Date of : 1980 MR: [id number] Mental Status Exam: Appearance: Good eye contact Affect: Appropriate Behavior: Interactive Alertness: Alert Speech: Appropriate Cognition: Intact Thought Process: Goal-directed Thought Content: organized Level/Quality of Participation: engaged Interactions with others: appropriate Interventions utilized were Activity Therapy Patient's Response to Intervention: on-task; appropriate interactions & affect Progress Towards Goal(s): Goal(s) met Additional Comments: Staff will continue to encourage pt to attend AT sessions. Next Step: Continue with current services Patients Problems: Patient Active Problem List Diagnosis Alcohol use disorder Tobacco use disorder Overweight (BMI 25.0-29.9) Abdominal fullness in left upper quadrant Constipation by delayed colonic transit Hyperlipidemia Alcohol abuse with withdrawal (HCC) [facility] Nursing Noteon 08-30-2024 Nursing Note Pt states he noticed some burning with urination this evening, he stated he was going to keep an eye on it and see if it continued or got worse encouraged to increase water intake, educated patient if it continued or got worse to notify nursing staff. Normal [facility] Nursing Note Pt alert and oriented, med compliant, pt denies SI/HI/AVH, NV&D. Pt attended 1900 meeting, social with peers, states appetite has picked up and starting to feel better. Pt encouraged to update staff with any change in condition. Will monitor pt for safety. Normal [facility] Nursing Note Bedside handoff complete, pt in meeting at this time. Normal [facility] Nursing Note Patient is pleasant and cooperative, up steady, eating fairly well. Monitored for safety. Normal [facility] Nursing Note Patient seen resting in bed at time of interview-pleasant upon initial approach. Presented with an appropriate affect. Fair eye contact maintained throughout interaction. Reports he feels like absolute shit. Receptive to words of encouragement/emot ional support. Patient up @christophe with a steady gait. Reports poor appetite and sleep-adequate rest/fluids and nutrition continually encouraged. Encouragement with ADLs provided-patient instructed to call on staff if hygiene products are needed. Minimally interactive-patien t is mostly withdrawn to his room/himself this morning. Group meeting/therapy attendance continually encouraged. Cooperative with nursing care and assessment. Medication compliant. CIWA monitored per unit policy. 20 gauge IV in R forearm patent-dressing is clean, dry and intact-no c/o pain or s/s of infection noted at site. Denies all s/s of withdraw. Denies any current pain. Denies HI, but endorsed passive SI-admits to having thoughts of wanting to harm himself at times-reports these thoughts come and go. Patient went on to say, I am just sick of feeling this way, and it's no one's fault but my own. Emotional support provided. No clear plan voiced-patient able to contract for safety while on unit-agreeable to alert staff if/when thoughts occur to ensure safety. No delusions voiced/noted. No auditory or tactile hallucinations voiced/noted, but patient admitted to seeing [place] flashbacks. When asked to elaborate, patient stated I don't know, I wasn't in the service, it's kind of like PTSD I guess. Patient agreeable to alert staff if/when visuals occur to ensure safety is maintained. No s/s of physical concerns or visible distress noted. Education on appropriate call light usage reinforced. Plan of care ongoing. Normal [facility] 30on 08-29-2024 30 Patient understanding of care plan and goals Normal [facility] CBC W Auto Differential pane l (Bld)on 08-29-2024 Basophils (Bld) [#/Vol] 0.1 10*3/uL 0.0 - 0.2 10*3/uL [facility] Basophils/100 WBC (Bld) 2 % 0.0 - 2.0 % [facility] Eosinophils (Bld) [#/Vol] 0.3 10*3/uL 0. 0 - 0.5 10*3/uL [facility] Eosinophils/100 WBC (Bld) 3.8 % 0.0 - 6.0 % [facility] Erythrocyte distribution width (RBC) [Ratio] 14.6 % 11.5 - 15.0 % [facility] Hematocrit (Bld) [Volume fraction] 44.2 % 40.0 - 52.0 % [facility] Hemoglobin (Bld) [Mass/Vol] 15.3 g/dL 13.0 - 18.0 g/dL [facility] Immature granulocytes (Bld) [#/Vol] 0 10*3/uL NINF - 0.1 10*3/uL [facility] Immature granulocytes/100 WBC (Bld) 0.3 % 0.0 - 2.0 % [facility] Interpretation and review of laboratory results Abnormal [facility] th Lymphocytes (Bld) [#/Vol] 2.1 10*3/uL 1. 0 - 4.3 10*3/uL [facility] Lymphocytes/100 WBC (Bld) 32.3 % 15.0 - 45. 0 % [facility] MCH (RBC) [Entitic mass] 32.1 pg 26.0 - 34.0 pg [facility] MCHC (RBC) [Mass/Vol] 34.6 % 30.5 - 36.0 % [facility] MCV (RBC) [Entitic vol] 92.7 fL 77.0 - 99.0 fL [facility] Monocytes (Bld) [#/Vol] 0.6 10*3/uL 0.0 - 0.9 10*3/uL [facility] Monocytes/100 WBC (Bld) 8.7 % 5.0 - 13.0 % [facility] Neutrophils (Bld) [#/Vol] 3.5 10*3/uL 1. 8 - 7.5 10*3/uL [facility] Neutrophils/100 WBC (Bld) 52.9 % 38.0 - 82. 0 % [facility] Nucleated RBC/100 WBC (Bld) [Ratio] 0 % [facility] Platelet mean volume (Bld) [Entitic vol] 8.9 fL Low 9.0 - 12.7 fL [facility] Platelets (Bld) [#/Vol] 365 10*3/uL 140 - 440 10*3/uL [facility] RBC (Bld) [#/Vol] 4.77 10*6/uL 4.40 - 5.9 0 10*6/uL [facility] WBC (Bld) [#/Vol] 6.5 10*3/uL 3.6 - 10.7 10*3/uL [facility] CBC WITH AUTO DIFFERENTIALon 08-29-2024 Basophils (Bld) [#/Vol] 0.1 10*3/uL Normal 0.0-0.2 [facility] Comment on above: Performed By: #### L [id number] ####Rehab Director Occupational Therapist: MAKEDA SOTO ([phone])[facility])[address] [place] [address] Basophils/100 WBC (Bld) 2.0 % Normal 0.0-2.0 [facility] Comment on above: Performed By: #### L [id number] ####Rehab Director Occupational Therapist: MAKEDA SOTO ([phone])[facility] ([facility])[address] [place] [address] [place] Eosinophils (Bld) [#/Vol] 0.3 10*3/uL Normal 0.0-0.5 [facility] Comment on above: Performed By: #### L [id number] ####Rehab Director Occupational Therapist: MAKEDA SOTO ([phone])[facility])[address] [place] [address] Eosinophils/100 WBC (Bld) 3.8 % Normal 0.0-6.0 [facility] Comment on above: Performed By: #### L [id number] ####Rehab Director Occupational Therapist: MAKEDA SOTO ([id number])[facility])[address] [place] [address] Erythrocyte distribution width (RBC) [Ratio] 14.6 % Normal 11.5-15.0 [facility] Comment on above: Performed By: #### L [id number] ####Rehab Director Occupational Therapist: MAKEDA SOTO ([phone])[facility])[address] [place] [address] Hematocrit (Bld) [Volume fraction] 44.2 % Normal 40.0-52.0 [facility] Comment on above: Performed By: #### L [id number] ####Rehab Director Occupational Therapist: MAKEDA SOTO ([phone])[facility])[address] [place] [address] Hemoglobin (Bld) [Mass/Vol] 15.3 g/dL Normal 13.0-18.0 [facility] Comment on above: Performed By: #### L [id number] ####Rehab Director Occupational Therapist: MAKEDA SOTO ([phone])[facility] ([facility])[address] [place] [address] IMMATURE GRANS % 0.3 % Normal 0.0-2.0 [facility] Comment on above: Performed By: #### L [id number] ####Rehab Director Occupational Therapist: MAKEDA SOTO ([phone])[facility])[address] [place] [address] IMMATURE GRANS ABSOLUTE 0.0 10*3/uL Normal <0.1 [facility] Comment on above: Performed By: #### L [id number] ####Rehab Director Occupational Therapist: MAKEDA SOTO ([phone])[facility])[address] [place] [address] Lymphocytes (Bld) [#/Vol] 2.1 10*3/uL Normal 1.0-4.3 [facility] Comment on above: Performed By: #### L [id number] ####Rehab Director Occupational Therapist: MAKEDA SOTO ([phone])[facility])[address] [place] [address] [place] Lymphocytes/100 WBC (Bld) 32.3 % Normal 15.0-45.0 [facility] Comment on above: Performed By: #### L [id number] ####Rehab Director Occupational Therapist: MAKEDA SOTO ([phone])[facility])[address] [place] [address] MCH (RBC) [Entitic mass] 32.1 pg Normal 26.0-34.0 [facility] Comment on above: Performed By: #### L [id number] ####Rehab Director Occupational Therapist: MAKEDA SOTO ([phone])[facility] ([facility])[address] [place] [address] MCHC 34.6 % Normal 30.5-36.0 [facility] Comment on above: Performed By: #### L [id number] ####Rehab Director Occupational Therapist: MAKEDA SOTO ([phone])[facility])[address] [place] [address] MCV (RBC) [Entitic vol] 92.7 fL Normal 77.0-99.0 [facility] Comment on above: Performed By: #### L [id number] ####Rehab Director Occupational Therapist: MAKEDA SOTO ([phone])[facility])[address] [place] [address] Monocytes (Bld) [#/Vol] 0.6 10*3/uL Normal 0.0-0.9 [facility] Comment on above: Performed By: #### L [id number] ####Rehab Director Occupational Therapist: MAKEDA SOTO ([phone])[facility])[address] [place] [address] Monocytes/100 WBC (Bld) 8.7 % Normal 5.0-13.0 [facility] Comment on above: Performed By: #### L [id number] ####Rehab Director Occupational Therapist: MAKEDA SOTO ([phone])[facility])[address] [place] [address] NEUTROPHILS ABSOLUTE 3.5 10*3/uL Normal 1.8-7.5 [facility] Comment on above: Performed By: #### L [id number] ####Rehab Director Occupational Therapist: MAKEDA SOTO ([phone])[facility])[address] [place] [address] Neutrophils/100 WBC (Bld) 52.9 % Normal 38.0-82.0 [facility] Comment on above: Performed By: #### L [id number] ####Rehab Director Occupational Therapist: MAKEDA SOTO ([phone])[facility])[address] [place] [address] NRBC 0.0 /100 WBCs Normal 0.0-2.0 [facility] Comment on above: Performed By: #### L [id number] ####Rehab Director Occupational Therapist: MAKEDA SOTO ([phone])[facility])[address] [place] [address] Platelet mean volume (Bld) [Entitic vol] 8.9 fL Low 9.0-12.7 [facility] Comment on above: Performed By: #### L [id number] ####Rehab Director Occupational Therapist: MAKEDA SOTO ([phone])[facility])[address] [place] [address] Platelets (Bld) [#/Vol] 365 10*3/uL Normal 140-440 [facility] Comment on above: Performed By: #### L [id number] ####Rehab Director Occupational Therapist: MAKEDA SOTO ([phone])[facility])[address] [place] [address] [place] RBC (Bld) [#/Vol] 4.77 10*6/uL Normal 4.40-5.90 [facility] Comment on above: Performed By: #### L [id number] ####Rehab Director Occupational Therapist: MAKEDA SOTO ([phone])[facility])[address] [place] [address] WBC (Bld) [#/Vol] 6.5 10*3/uL Normal 3.6-10.7 [facility] Comment on above: Performed By: #### L [id number] ####Rehab Director Occupational Therapist: MAKEDA SOTO ([id number])[facility] ([facility])[address] [place] [address] COMPREHENSIVE METABOLIC PANE Jose 08-29-2024 Albumin [Mass/Vol] 4.3 g/dL Normal 3.5-5.0 [facility] Comment on above: Performed By: #### L AB46, LAB17 #### Rehab Director Occupational Therapist: MAKEDA SOTO ([id number]) [facility] [address] [place] [address] [place] ALP [Catalytic activity/Vol] 83 U/L Normal 40-150 [facility] Comment on above: Performed By: #### L AB46, LAB17 #### Rehab Director Occupational Therapist: MAKEDA SOTO ([phone]) [facility] [address] [place] [address] ALT [Catalytic activity/Vol] 38 U/L Normal <40 [facility] Comment on above: Performed By: #### L AB46, LAB17 #### Rehab Director Occupational Therapist: MAKEDA SOTO ([phone]) [facility] [address] [place] [address] [place] Anion gap [Moles/Vol] 14 mmol/L High 3-13 [facility] Comment on above: Performed By: #### L AB46, LAB17 #### Rehab Director Occupational Therapist: MAKEDA SOTO ([phone]) [facility] [address] [place] [address] [place] AST [Catalytic activity/Vol] 58 U/L High <34 [facility] Comment on above: Performed By: #### L AB46, LAB17 #### Rehab Director Occupational Therapist: MAKEDA SOTO ([id number]) [facility] [address] [place] [address] [place] Bilirubin [Mass/Vol] 0.4 mg/dL Normal <1.2 [facility] Comment on above: Performed By: #### L AB46, LAB17 #### Rehab Director Occupational Therapist: MAKEDA SOTO ([phone]) [facility] [address] [place] [address] [place] Calcium [Mass/Vol] 8.5 mg/dL Normal 8.4-10.2 [facility] Comment on above: Performed By: #### L AB46, LAB17 #### Rehab Director Occupational Therapist: MAKEDA SOTO ([id number]) [facility] [address] [place] [address] Chloride [Moles/Vol] 104 mmol/L Normal 98-107 [facility] Comment on above: Performed By: #### L AB46, LAB17 #### Rehab Director Occupational Therapist: MAKEDA SOTO ([phone]) [facility] [address] [place] [address] CO2 [Moles/Vol] 20 mmol/L Low 22-29 [facility] Comment on above: Performed By: #### L AB46, LAB17 #### Rehab Director Occupational Therapist: MAKEDA SOTO ([phone]) [facility] [address] [place] [address] Creatinine [Mass/Vol] 0.71 mg/dL Low 0.72-1.25 [facility] Comment on above: Performed By: #### L AB46, LAB17 #### Rehab Director Occupational Therapist: MAKEDA SOTO ([phone]) [facility] ([facility]) [address] [place] [address] GLOMERULAR FILTRATION RATE ML/MIN/1.73 SQ M.PREDICTED >90.0 Normal >60.0 [facility] Comment on above: Result Comment: Calc ulation based on the Chronic Kidney Disease Epidemiology Collaboration (CKD-EPI) equation refit without adjustment for race Performed By: #### L AB46, LAB17 #### Rehab Director Occupational Therapist: MAKEDA SOTO ([phone]) [facility] [address] [place] [address] [place] Glucose [Mass/Vol] 92 mg/dL Normal 74-100 [facility] Comment on above: Performed By: #### L AB46, LAB17 #### Rehab Director Occupational Therapist: MAKEDA SOTO ([id number]) [facility]) [address] [place] [address] [place] Potassium [Moles/Vol] 3.5 mmol/L Normal 3.5-5.1 [facility] Comment on above: Result Comment: [facility] potassium values may be up to 0.5 mmol/L lower than serum values. Performed By: #### L AB46, LAB17 #### Rehab Director Occupational Therapist: MAKEDA SOTO ([id number]) [facility]) [address] [place] [address] Protein [Mass/Vol] 7.2 g/dL Normal 6.4-8.3 [facility] Comment on above: Performed By: #### L AB46, LAB17 #### Rehab Director Occupational Therapist: MAKEDA SOTO ([phone]) [facility]) [address] [place] [address] Sodium [Moles/Vol] 138 mmol/L Normal 136-145 [facility] Comment on above: Performed By: #### L AB46, LAB17 #### Rehab Director Occupational Therapist: MAKEDA SOTO ([phone]) [facility]) [address] [place] [address] Urea nitrogen [Mass/Vol] 7 mg/dL Low 8-21 [facility] Comment on above: Performed By: #### L AB46, LAB17 #### Rehab Director Occupational Therapist: MAKEDA SOTO ([phone]) [facility]) [address] [place] [address] Comprehensive metabolic 1998 panelon 08-29-2024 Albumin [Mass/Vol] 4.3 g/dL 3.5 - 5.0 g/dL [facility] ALP [Catalytic activity/Vol] 83 U/L 40 - 150 U/L [facility] ALT [Catalytic activity/Vol] 38 U/L NINF - 40 U/L [facility] Anion gap [Moles/Vol] 14 mmol/L High 3 - 13 mmol/L [facility] AST [Catalytic activity/Vol] 58 U/L High NINF - 34 U/L [facility] Bilirubin [Mass/Vol] 0.4 mg/dL NINF - 1.2 mg/dL [facility] Calcium [Mass/Vol] 8.5 mg/dL 8.4 - 10. 2 mg/dL [facility] Chloride [Moles/Vol] 104 mmol/L 98 - 10 7 mmol/L [facility] CO2 [Moles/Vol] 20 mmol/L Low 22 - 29 mmol/L [facility] Creatinine [Mass/Vol] 0.71 mg/dL Low 0.72 - 1.25 mg/dL [facility] GFR/1.73 sq M.predicted (S/P/Bld) [Vol rate/Area] - PINF [facility] Comment on above: Calculation based on the Chronic Kidney Disease Epidemiology Collaboration (CKD-EPI) equation refit without adjustment for race Glucose [Mass/Vol] 92 mg/dL 74 - 100 mg/dL [facility] Potassium [Moles/Vol] 3.5 mmol/L 3.5 - 5.1 mmol/L [facility] Comment on above: Plasma potassium navjot ues may be up to 0.5 mmol/L lower than serum values. Protein [Mass/Vol] 7.2 g/dL 6.4 - 8.3 g/dL [facility] Sodium [Moles/Vol] 138 mmol/L 136 - 145 mmol/L [facility] Urea nitrogen [Mass/Vol] 7 mg/dL Low 8 - 21 mg/d L [facility] DRUGS OF ABUSEon 08-29-2024 AMPHETAMINE SCREEN Negative Normal [facility] Comment on above: Performed By: #### L [id number] ####Rehab Director Occupational Therapist: MAKEDA SOTO ([phone])[address] BARBITURATES SCREEN Negative Normal [facility] Comment on above: Performed By: #### L [id number] ####Rehab Director Occupational Therapist: MAKEDA SOTO ([phone])[facility])[address] [place] [address] [place] BENZODIAZEPINE SCREEN Negative Normal [facility] Comment on above: Performed By: #### L [id number] ####Rehab Director Occupational Therapist: MAKEDA SOTO ([phone])[facility])[address] [place] [address] COCAINE METAB. SCREEN Negative Normal [facility] Comment on above: Performed By: #### L [id number] ####Rehab Director Occupational Therapist: MAKEDA Da [phone])[facility] ([facility])[address] [place] [address] FENTANYL SCREEN, UR QUAL Negative Normal [facility] Comment on above: Result Comment: DAREN Burgos COMMENTS: The expected value for all of the drugs listed above is Negative. The following drugs or drug groups have been screened for by Immunoassay at the following thresholds: Amphetamine class (1000 ng/mL) Barbiturates (200 ng/mL) Benzodiazepines (200 ng/mL) Cocaine (300 ng/mL) Methadone (300 ng/mL) Opiates (300 ng/mL) Oxycodone (100 ng/mL) PCP (25 ng/mL) Fentanyl (1.0 ng/ml) NOTE: These results are for medical treatment only. Analysis performed using non-forensic procedures. POSITIVE results are NOT confirmed by a more specific alternative method unless requested. If confirmation is needed, request confirmation under separate order. Performed By: #### L [id number] ####Rehab Director Occupational Therapist: MAKEDA SOTO ([phone])[facility] [place] [address] METHADONE SCREEN Negative Normal [facility] Comment on above: Performed By: #### L [id number] ####Rehab Director Occupational Therapist: MAKEDA SOTO ([id number])[facility] ([facility])[address] [place] [address] OPIATES SCREEN Negative Normal [facility] Comment on above: Performed By: #### L [id number] ####Rehab Director Occupational Therapist: MAKEDA SOTO ([phone])[facility] ([facility])[address] [place] [address] OXYCODONE SCREEN Negative Normal [facility] Comment on above: Performed By: #### L [id number] ####Rehab Director Occupational Therapist: MAKEDA SOTO ([phone])[facility] ([facility])[address] [place] [address] PHENCYCLIDINE SCREEN Negative Normal [facility] Comment on above: Performed By: #### L [id number] ####Rehab Director Occupational Therapist: MAKEDA SOTO ([phone])[facility] ([facility])[address] [place] [address] ECG 12-LEADon 08-29-2024 ECG 12-LEAD IMPRESSION: Sinus tachycardia No prior EKG available Electronically Signed On 08-29-2024 13:26:20 EDT by Cedrick Cuadra [facility] ED Nursing Noteon 08-29-2024 ED Nursing Note Pt transported to new room with officer. NAD noted all belongings with officer in transport. Pt awake and alert speaking complete sentences. Normal [facility] ED Nursing Note Report called to Lydia SYKES on 4E. [facility] ED Provider Noteon ED Provider Note Emergency Department Encounter [facility] EMERGENCY DE[facility] Patient: Osvaldo Christy : 1980 Date of Evaluation: 08/29/2024 ED Supervising Physician: Roberta Almendarez MD I independently examined and evaluated Osvaldo Christy. THIS IS MY SUPERVISORY AND SHARED VISIT NOTE: I personally saw the patient and made/approved the management plan and take responsibility for the patient management. In brief, Osvaldo Christy is a 44 y.o. male that presents to the emergency department requesting assistance with alcohol detox. The patient states that he drinks 24 beers per day and last drank roughly an hour prior to arrival. He denies any hallucinations but states that he has in the past. He denies any suicidal ideation. He did states that he did not drive, someone dropped him off here. Focused exam: Patient obviously intoxicated but ambulating without difficulty. Tachycardic. Brief ED course/MDM: EMERGENCY DEPARTMENT COURSE and DIFFERENTIAL DIAGNOSIS/MDM: Vitals: Vitals: 08/29/24 1309 08/29/24 1312 BP: (!) 146/101 BP Location: Left arm Patient Position: Sitting Pulse: (!) 134 Resp: 18 Temp: 37 ?C (98.6 ?F) TempSrc: Temporal SpO2: 96% Weight: 68 kg (150 lb) Height: 1.626 m (5' 4) The patient presented with a chief complaint of requesting assistance with alcohol detox The differential diagnosis associated with this patient's presentation includes but is not limited to: Presentation concerning for alcohol abuse Our workup consisted of ordering/reviewing : CBC, CMP, drug screen, ethanol level, COVID antigen, EKG I reviewed external records from: PDMP demonstrating no controlled substance prescriptions Patient's care was significantly impacted by social determinants of health including Alcoholism ED Medications managed: Medications nicotine (Nicoderm, Step 1) 21 MG/24HR patch 1 patch (1 patch TransDERmal Medication Applied 08/29/24 1358) sodium chloride 0.9 % bolus 1,000 mL (1,000 mL IntraVENous New Bag 08/29/24 1354) CRITICAL CARE TIME None All diagnostic, treatment, and disposition decisions were made by myself in conjunction with the Resident or CARLO. I also supervised dial portions of any procedures performed by the Resident. For all further details of the patient's emergency department visit, please see their documentation. (Comment: Please note this report has been produced using speech recognition software and may contain errors related to that system including errors in grammar, punctuation, and spelling, as well as words and phrases that may be inappropriate. If there are any questions or concerns please feel free to contact the dictating provider for clarification.) Roberta Almendarez MD Acute Care [facility] Rosalie Almendarez MD 08/29/24 1404 [facility] ED Provider Note EMERGENCY DEPARTMENT ENCOUNTER Pt Name: Osvaldo Christy Birthdate 1980 Date of evaluation: 08/29/2024 ED Provider: Roma Flaherty PA-C CHIEF COMPLAINT Chief Complaint Patient presents with Alcohol Problem Pt presents to the triage window stating he is an alcoholic and needs detox. Pt admits to drinking more than a 12 pack per day. States his las drink was 1 hour ago HISTORY OF PRESENT ILLNESS (Location/Symptom, Timing/Onset, Context/Setting, Quality, Duration, Modifying Factors, Severity) Note limiting factors. I wore appropriate PPE for the entirety of this encounter. HPI Osvaldo Christy is a 44 y.o. male who presents to the emergency department presenting emergency department for evaluation of concern for alcohol problem, patient states that he drinks at least a 12 packs a day, but usually drinks more closer to 24 total beers a day. He denies any suicidal homicidal ideations, denies any other drug use other than smoking cigarettes, requesting a nicotine patch on arrival to the emergency department. Patient states that someone dropped him off to come to alcohol detox. Previously talked with his PCP about possible detox but has never been to detox here before. No other complaints or concerns on arrival no nausea no vomiting, no previous history of DTs, no previous history of alcohol withdrawal seizures, patient states few years ago I got really drunk fell and hit my head he denies any other symptoms or complaints on arrival to the emergency department today. Nursing Notes were reviewed. Limitations to history: None Outside historians: None REVIEW OF SYSTEMS Review of Systems 14 systems reviewed, positives and pertinent negatives as per HPI. All other systems were reviewed and are negative. PAST MEDICAL HISTORY Medical History[1] SURGICAL HISTORY Surgical History[2] CURRENT MEDICATIONS Previous Medications NICOTINE POLACRILEX (COMMIT) 4 MG LOZENGE Dissolve 1 lozenge (4 mg) in the mouth every 2 hours as needed for smoking cessation. ALLERGIES Patient has no known allergies. FAMILY HISTORY Family History[3] SOCIAL HISTORY Social History[4] SCREENINGS PHYSICAL EXAM ED Triage Vitals [08/29/24 1309] Temp Heart Rate Resp BP 37 ?C (98.6 ?F) (!) 134 18 (!) 146/101 SpO2 Temp Source Heart Rate Source Patient Position 96 % Temporal Monitor Sitting BP Location FiO2 (%) Left arm -- Physical Exam Vitals and nursing note reviewed. Constitutional: General: He is not in acute distress. Appearance: He is well-developed. HENT: Head: Normocephalic and atraumatic. Eyes: Conjunctiva/sclera : Conjunctivae normal. Cardiovascular: Rate and Rhythm: Normal rate and regular rhythm. Heart sounds: No murmur heard. Pulmonary: Effort: Pulmonary effort is normal. No respiratory distress. Breath sounds: Normal breath sounds. Abdominal: Palpations: Abdomen is soft. Tenderness: There is no abdominal tenderness. Comments: ABDOMEN: The abdomen is soft and nontender. There is no guarding, rigidity, rebound tenderness. No right or left CVA tenderness at this time. Patient has no hernias or masses noted. No McBurney's point tenderness. No Molina sign. Musculoskeletal: General: No swelling. Cervical back: Neck supple. Skin: General: Skin is warm and dry. Capillary Refill: Capillary refill takes less than 2 seconds. Neurological: General: No focal deficit present. Mental Status: He is alert and oriented to person, place, and time. Comments: Alert, able to provide meaningful history, follows commands. Extraocular movements intact, no facial palsy, full strength bilateral mmd unit teacher strength, wiggles toes bilaterally. Sensation intact and symmetrical bilateral upper and lower extremities. No dysarthria. No aphasia Psychiatric: Mood and Affect: Mood normal. Comments: Denies any suicidal or homicidal ideations, mood is otherwise normal, patient appears to be clinically intoxicated. DIAGNOSTIC RESULTS RADIOLOGY (Per Emergency Physician): Interpretation per the Radiologist below, if available at the time of this note: No orders to display LABS: Labs Reviewed CBC WITH AUTO DIFFERENTIAL - Abnormal Result Value Auto WBC 6.5 RBC 4.77 Hemoglobin 15.3 Hematocrit 44.2 MCV 92.7 MCH 32.1 MCHC 34.6 RDW 14.6 Platelets 365 MPV 8.9 (*) nRBC 0.0 Neutrophils Relative 52.9 Lymphocytes Relative 32.3 Monocytes Relative 8.7 Eosinophils Relative 3.8 Basophils Relative 2.0 Immature Grans % 0.3 Neutrophils Absolute 3.5 Lymphocytes Absolute 2.1 Monocytes Absolute 0.6 Eosinophils Absolute 0.3 Basophils Absolute 0.1 Immature Grans Absolute 0.0 COMPREHENSIVE METABOLIC PANEL - Abnormal SODIUM 138 POTASSIUM 3.5 CHLORIDE 104 CARBON DIOXIDE 20 (*) ANION GAP 14 (*) UREA NITROGEN 7 (*) CREATININE 0.71 (*) GLUCOSE 92 CALCIUM 8.5 AST (SGOT) 58 (*) ALT 38 ALKALINE PHOSPHATASE 83 ALBUMIN 4.3 BILIRU (more content not included)... Normal [facility] ETHANOLon 08-29-2024 ETHANOL IN SER/PLAS 251 mg/dL High <10 [facility] Comment on above: Result Comment: DAREN Burgos COMMENTS: NANOTECHNOLOGY ENGINEERING TECHNOLOGIST depression is seen >100 mg/dL. NOTE: This result is for medical treatment only. Analysis performed using non-forensic procedures. Performed By: #### L AB46, LAB17 ####Rehab Director Occupational Therapist: MAKEDA SOTO ([phone])[facility] ([facility])[address] [place] [address] Ethanol (Bld) [Mass/Vol]on 0 08-29-2024 Ethanol [Mass/Vol] 251 mg/dL High NINF - 10 mg/dL [facility] NANOTECHNOLOGY ENGINEERING TECHNOLOGIST depression is seen >100 mg/dL. NOTE: This result is for medical treatment only. Analysis performed using non-forensic procedures. [facility] Laboratory - Drug toxicology on 08-29-2024 Amphetamines Screen method >1000 ng/mL Ql (U) Negative [facility] Barbiturates Screen method >200 ng/mL Ql (U) Negative [facility] H ealth Benzodiazepines Ql (U) Negative [facility] Methadone Screen Ql (U) Negative [facility] Opiates Screen Ql (U) Negative [facility] oxyCODONE Ql (U) Negative [facility] He alth Phencyclidine Ql (U) Negative [facility] Laboratory - Microbiology an d Antimicrobial susceptibilityOrdered By: Negra Fu on 08-29-2024 SARS-CoV-2 (COVID-19) Ag IA.rapid Ql (Resp) Negative Negative [facility] Comment on above: A negative result do es not rule out the possibility of SARS-CoV-2 infection. NAAT-based methods should be considered for symptomatic patients presenting greater than seven days after onset of symptoms. Method: Lateral flow immunoassay. Fact sheets for healthcare providers and patients can be found at the following sites: https://www.[employer].gov/media/241880/download https://www.[employer].gov/media/542223/download No Panel Informationon 08-29 Interpretation and review of laboratory results Abnormal [facility] Heal th [facility] COCAINE METAB. SCREEN Negative [facility] FENTANYL SCREEN, UR QUAL Negative [facility] The expected value for all of the drugs listed above is Negative. The following drugs or drug groups have been screened for by Immunoassay at the following thresholds: Amphetamine class (1000 ng/mL) Barbiturates (200 ng/mL) Benzodiazepines (200 ng/mL) Cocaine (300 ng/mL) Methadone (300 ng/mL) Opiates (300 ng/mL) Oxycodone (100 ng/mL) PCP (25 ng/mL) Fentanyl (1.0 ng/ml) NOTE: These results are for medical treatment only. Analysis performed using non-forensic procedures. POSITIVE results are NOT confirmed by a more specific alternative method unless requested. If confirmation is needed, request confirmation under separate order. [facility] Sinus tachycardia No prior EKG available Electronically Signed On 08-29-2024 13:26:20 EDT by Cedrick Norris MD - 08/29/2024 IMPRESSION: Sinus tachycardia No prior EKG available Electronically Signed On 08-29-2024 13:26:20 EDT by Cedrick Velazcoinski [facility] [employer] Panel InformationOrdered By: Cedrick Cuadra on 08-29-2024 P [place] [address] [facility] [employer] Work Phone: IL Interval [address] [facility] [employer] Work Phone: QRS [place] [address] [facility] [employer] Work Phone: QRSD Interval [address] [facility] Healt h Work Phone: QT Interval [address] [facility] [employer] Work Phone: QTC Interval [address] [facility] Health Work Phone: T Wave [place] 41 degrees [facility]: [facility] [employer] Work Phone: Nursing Noteon 08-29-2024 Nursing Note Pt is observed standing in the hallway vomiting. Zofran offered, pt refused. Pt refused his bedtime meds at this time. Pt is encouraged to seek staff assistance with any needs. Pt verbalizes understanding. Pt refused his bedtime meds at the beginning of the shift. Phenobarb, vitamin B1 and Trazone. Attempts made X3. Education provided. Pt verbalizes understanding. Normal [facility] Nursing Note Patient arrived to the unit escorted by trasport and protective services. Patient arrived via wheelchair and patient able to ambulate to the bed without difficulty. Patient assessed and questions asked. Patient cooperative during assessment. Patient has an IV in right forearm. Patient as denied any SI/HI/AVD at this time. Normal [facility] SARS-COV-2 ANTIGENon 025 SARS-COV-2 ANTIGEN SARS-COV-2 ANTIGEN -BINAX Reference Negative Negative A negative result does not rule out the possibility of SARS-CoV-2 infection. NAAT-based methods should be considered for symptomatic patients presenting greater than seven days after onset of symptoms. Method: Lateral flow immunoassay. Fact sheets for healthcare providers and patients can be found at the following sites: https://www.fda.go v/media/321770/marycruz nload https://www.fda.go v/media/133687/marycruz nload [facility] Comment on above: Performed By: #### L [id number] #### Rehab Director Occupational Therapist: MAKEDA SOTO ([phone]) [facility] ([facility]) [address] [place] [address] SARS-CoV-2 (COVID-19) Ag IA. rapid Ql (Resp)Ordered By: Negra Fu on 08-29-2024 Interpretation and review of laboratory results Normal [facility] Vital signsOrdered By: Cedrick Cuadra on 08-29-2024 Heart rate 129 /min bpm [facility] [employer] Work Phone: US Abdomen limitedon 024 No acute sonographic process identified. No definitive sonographic abnormality in the delineated area of concern of the left of midline supraumbilical abdomen. Report Dictated on Electronically Signed By: Pool Frankel MD Electronically Signed Date/Time: 08/15/2023 3:47 PM EDT [employer] Patient Name: OSVALDO CHRISTY : 1980 Exam Date/Time: 08/15/2023 14:40 Procedure: US ABDOMEN LIMITED Ordering Provider: SHEN EVAN Reason For Exam: Left upper quadrant abdominal fullness ULTRASOUND ABDOMEN LIMITED CLINICAL INDICATION: Abdominal fullness TECHNIQUE: Ultrasound of the right upper quadrant including color flow imaging COMPARISON: None FINDINGS: Liver: Normal echogenicity, size and contours. No focal lesion identified.. Gallbladder: The gallbladder is contracted, limiting detailed evaluation. Sonographic Molina sign is reported as negative. Bile ducts: No evidence of biliary ductal dilatation. Common bile duct: 4.3 mm Pancreas: Visualized portions of the pancreas are normal in appearance. Right kidney: No pelvicalyceal dilatation. Ascites: None Focused: Focused sonography of the supraumbilical left of midline abdomen performed, without evidence of mass, fluid collection, or other sonographic abnormality. [facility] [employer] Pool Frankel MD - 08/15/2023 Patient Name: OSVALDO CHRISTY : 1980 Exam Date/Time: 08/15/2023 14:40 Procedure: US ABDOMEN LIMITED Ordering Provider: SHEN EVAN Reason For Exam: Left upper quadrant abdominal fullness ULTRASOUND ABDOMEN LIMITED CLINICAL INDICATION: Abdominal fullness TECHNIQUE: Ultrasound of the right upper quadrant including color flow imaging COMPARISON: None FINDINGS: Liver: Normal echogenicity, size and contours. No focal lesion identified.. Gallbladder: The gallbladder is contracted, limiting detailed evaluation. Sonographic Molina sign is reported as negative. Bile ducts: No evidence of biliary ductal dilatation. Common bile duct: 4.3 mm Pancreas: Visualized portions of the pancreas are normal in appearance. Right kidney: No pelvicalyceal dilatation. Ascites: None Focused: Focused sonography of the supraumbilical left of midline abdomen performed, without evidence of mass, fluid collection, or other sonographic abnormality. IMPRESSION: No acute sonographic process identified. No definitive sonographic abnormality in the delineated area of concern of the left of midline supraumbilical abdomen. Report Dictated on Electronically Signed By: Pool Frankel MD Electronically Signed Date/Time: 08/15/2023 3:47 PM EDT [facility] Radiology Study observation (narrative) [facility] US Abdomen limitedOrdered By : Pool Frankel on 08-15-[address] [facility] [employer] Work Phone: CBC panel Auto (Bld)on 07-26 Erythrocyte distribution width (RBC) [Ratio] 13.3 % 11.5 - 15.0 % [facility] [employer] Hematocrit (Bld) [Volume fraction] 45.2 % 40.0 - 52.0 % [facility] [employer] Hemoglobin (Bld) [Mass/Vol] 15.4 g/dL 13.0 - 18.0 g/dL [facility] [employer] IPF [address] [facility] [employer] MCH (RBC) [Entitic mass] 31.2 pg 26.0 - 34.[address] [facility] [employer] MCHC (RBC) [Mass/Vol] 34.1 % 30.5 - 36.0 % [facility] MCV (RBC) [Entitic vol] 91.5 fL 77.0 - 99.[address] [facility] [employer] Platelet mean volume (Bld) [Entitic vol] 9.3 fL 9.0 - 12.[address] [facility] [employer] Platelets (Bld) [#/Vol] 403 10*3/uL 140 - 440 10*3/uL [facility] RBC (Bld) [#/Vol] 4.94 10*6/uL 4.40 - 5.9 0 10*6/uL [facility] WBC (Bld) [#/Vol] 9.6 10*3/uL 3.6 - 10.7 10*3/uL [facility] Cobalamin (Vitamin B12) [Mas s/Vol]on 07-27-2023 Interpretation and review of laboratory results Normal [facility] Comprehensive metabolic 1998 panelon 07-27-2023 Albumin [Mass/Vol] 4.4 g/dL 3.5 - 5.0 g/dL [facility] ALP [Catalytic activity/Vol] 78 U/L 38 - 126 U/L [facility] ALT [Catalytic activity/Vol] 19 U/L 0 - 49 U/L [facility] Anion gap [Moles/Vol] 10 mmol/L 3 - 13 mmol/L [facility] AST [Catalytic activity/Vol] 146 U/L High 15 - 46 U/L [facility] Bilirubin [Mass/Vol] 0.7 mg/dL 0.2 - 1 .3 mg/dL [facility] Calcium [Mass/Vol] 9.4 mg/dL 8.4 - 10. 4 mg/dL [facility] Chloride [Moles/Vol] 105 mmol/L 98 - 10 7 mmol/L [facility] CO2 [Moles/Vol] 24 mmol/L 22 - 30 mmol/L [facility] Creatinine [Mass/Vol] 0.79 mg/dL 0.66 - 1.25 mg/dL [facility] GFR/1.73 sq M.predicted MDRD (S/P/Bld) [Vol rate/Area] - PINF [facility] Comment on above: Calculation based on the Chronic Kidney Disease Epidemiology Collaboration (CKD-EPI) equation refit without adjustment for race Glucose [Mass/Vol] 90 mg/dL 70 - 100 mg/dL [facility] Potassium [Moles/Vol] 4.3 mmol/L 3.5 - 5.1 mmol/L [facility] Protein [Mass/Vol] 7.3 g/dL 6.3 - 8.2 g/dL [facility] Sodium [Moles/Vol] 139 mmol/L 135 - 145 mmol/L [facility] Urea nitrogen [Mass/Vol] 14 mg/dL 9 - 20 mg/d L [facility] HCV Ab IA Qlon 07-27-2023 Interpretation and review of laboratory results Normal [facility] HIV 1+2 Ab+HIV1 p24 Ag IA Ql Ordered By: Chayo Nicholas on 07-27-2023 Interpretation and review of laboratory results Normal [facility] Laboratory - Chemistry and C hemistry - challengeon 07-27-2023 Cobalamin (Vitamin B12) [Mass/Vol] 534 pg/mL 239 - 931 pg/mL [facility] Average glucose Estimated from glycated hemoglobin (Bld) [Mass/Vol] 105 mg/dL [facility] Laboratory - Hematology and Cell countson 07-27-2023 HbA1c (Bld) [Mass fraction] 5.3 % NINF - 5.7 % [facility] Comment on above: Normal less than 5.7 % Prediabetes 5.7% to 6.4% Diabetes 6.5% or higher --HgbA1C levels may not be accurate in patients who have renal disease, received recent blood transfusions, are anemic, or who have dyshemoglobinemia. Laboratory - Microbiology an d Antimicrobial susceptibilityon 07-27-2023 HCV Ab IA Ql Not detected Not Detected [facility] [employer] Comment on above: Patients with DETECT ED Hepatitis C Ab results should have a new specimen submitted for supplemental testing with a Hepatitis C Quantitative RNA assay (viral load), if clinically indicated. Laboratory - Microbiology an d Antimicrobial susceptibilityOrdered By: Chayo Nicholas on 07-27-2023 HIV 1+2 Ab+HIV1 p24 Ag IA Ql Non-Reactive Nonreactive [facility] Comment on above: The specimen was non -reactive for HIV-1 and HIV-2 antibodies and p24 antigen using an FDA-cleared 4th generation HIV test. Based on this non-reactive screen result, further reflexive testing was not indicated and was, therefore, not performed. Lipid 1996 panelon 4 Cholesterol [Mass/Vol] 203 mg/dL High NINF - 200 mg/dL [facility] Cholesterol in HDL [Mass/Vol] 32 mg/dL Low 40 - 60 mg/dL [facility] Cholesterol in LDL [Mass/Vol] 157 mg/dL High 0 - <100 [facility] Cholesterol.total/Cholest alberto in HDL [Mass ratio] 6 {ratio} [facility] Comment on above: Ref Range: < 3 Low Risk for CHD 3-6 Mod Risk for CHD > 6 High Risk for CHD Triglyceride [Mass/Vol] 70 mg/dL NINF - 150 mg/dL [facility] No Panel Informationon 07-26 [facility] Interpretation and review of laboratory results Abnormal [facility] Heal [facility] EMERGENCY REPORTon EMERGENCY REPORT [facility] EMERGENCY ROOM REPORT NAME ACCOUNT SEX AGE ADMIT DISCHARGE PT MED. RECORD# NUMBER DATE DATE TYPE OSVALDO CHRISTY [id number] Reese 40 09/09/20 09/10/20 3 C [id number] ROOM: ER DATE OF : 1980 DICTATING PHYSICIAN: Servando Null ADDENDUM EMERGENCY DEPARTMENT COURSE AND TREATMENT: We spoke with the hospitalist at [facility], but he did not have any beds tonight. Apparently he has been very busy with medical admissions and so did not have time to admit this patient at this point. He recommended outpatient follow-up. We did refer the patient to [facility], which is the [facility] addiction center. It is at the [facility], [address] [place] [address]. The phone number is [phone]. I explained to the patient that I was not able to get him admitted tonight, but he is willing to follow up. He says he is serious about getting help for his alcohol addiction. I did ask him to call this number tomorrow to arrange follow-up. If his symptoms become worse or any other problems develop in the meantime, return here to the Emergency Department. Dictated By: Servando Null DO 09/09/20 23:55 JOB #: [id number] Transcribed By: sadia 09/10/20 15:38 Electronically signed by: E-Sign: Dr. Servando Null D.O. 09/14/20 08:02 Page 1 of 1 OSVALDO CHRISTY Emergency Room Report Normal [facility] EMERGENCY REPORT [facility] EMERGENCY ROOM REPORT NAME ACCOUNT SEX AGE ADMIT DISCHARGE PT MED. RECORD# NUMBER DATE DATE TYPE OSVALDO CHRISTY [id number] Reese 40 09/09/20 09/10/20 3 C [id number] ROOM: ER DATE OF : 1980 DICTATING PHYSICIAN: Servando Null TIME SEEN: 1900 hours. HISTORY OF PRESENT ILLNESS: This is a 40-year-old white male who states he drinks about a 30-pack of beer per day, and he has been doing that for the past 3 years. He is wanting help to get rehab for his drinking so that he can stop. He presents here today for an evaluation. He states he did have a period of 3 years of sobriety when he lived in [place], [place], but that has been about 3 years ago. He has fallen off the wagon and has been drinking heavily since. No PCP. PAST MEDICAL HISTORY: Denied. PAST SURGICAL HISTORY: He cannot remember, but he does not think he has had any surgeries before. ALLERGIES: No known drug allergies. SOCIAL HISTORY: The patient is a smoker of one pack per day. He does drink about a 30-pack of beer per day. He denies any illicit drug use. He lives alone. REVIEW OF SYSTEMS: The patient denies any chest pain, shortness of breath, cough, sputum, wheezing, abdominal pain, nausea, vomiting, diarrhea, constipation, melena, hematochezia, headache, numbness, unsteady gait, weakness, neck or back pain, joint pain, skin rash or swelling, hives, hay fever, or swollen glands. Further review of systems is negative. PHYSICAL EXAMINATION: Vital signs: Blood pressure is 156/98, pulse 120, respirations 18, temperature 97.3, pulse oximetry 98%, and weight 150 pounds. The patient is alert and oriented x3. He presently appears in no acute distress. He is very pleasant and cooperative, a very nice fellow. He says he is very sincere about getting help with his drinking. He states that [facility] be willing to stay. HEENT: Head appears atraumatic. Pupils are equal and reactive to light. Red reflexes are intact bilaterally. Extraocular muscles are intact. No conjunctival injection. No scleral icterus or lid edema. Nose exhibits no rhinorrhea or epistaxis. Mouth: Mucous membranes are moist. No pharyngeal erythema. Uvula is midline and elevates. Neck is supple. Trachea is midline. No JVD or lymphadenopathy. No posterior cervical tenderness. No nuchal rigidity. Lungs are clear to auscultation Page 1 of 2 OSVALDO CHRISTY Emergency Room Report OSVALDO CHRISTY : 1980 bilaterally. No adventitious sounds are noted. No accessory muscle use is noted. CV: Heart rate and rhythm are regular without murmur. Abdomen is soft and nontender with normoactive bowel sounds x4 quadrants. No guarding or rigidity. No rebound. No abdominal distention. Back exhibits no midline or paraspinal region tenderness. No increased paraspinal muscle rigidity. Negative Ki's sign. Extremities: No edema or cyanosis. Peripheral pulses are intact. No motor or sensory deficits are noted. Hand soil scientist are strong and symmetric. Skin is warm and dry. No diaphoresis or rash. Neurologic examination shows the patient to be alert and oriented x4. No motor or sensory deficits are noted. Normal speech. No slurred speech. DIAGNOSTIC DATA: Bloodwork here showed a white count of 10,000, hemoglobin 15.3, hematocrit 44, and platelet count 292,000. Sodium is 136, potassium 3.6, chloride 96, CO2 of 24.1, BUN 9, creatinine 0.74, and glucose 91. AST was elevated at 140. ALT was elevated at 211. Alkaline phosphatase was normal at 84. Total bilirubin was normal at 0.7. Anion gap was normal at 20. Urinalysis showed negative nitrites and negative leukocyte esterase. Microscopic was not indicated. Specific gravity was 1.015. Acetaminophen level was normal at less than 2. Salicylate level was normal at 4.2. Blood alcohol level was markedly elevated at 219 mg/dL. His urine drug screen was negative for everything. EMERGENCY DEPARTMENT COURSE AND TREATMENT: I did give the patient some IV fluids here. I went and talked to him. He is agreeable to be admitted if I can obtain admission for him somewhere. We did call [facility] to see if we could get him admitted to their program up there. I have to talk to the hospitalist, who is presently in a cardiac arrest/resuscitati on event right now, but they will call us back when they have a chance. We will talk to them and see if they have a bed and if they would be willing to accept this patient for alcohol rehab treatment. DIAGNOSES: 1. Alcohol intoxication. 2. Chronic alcohol abuse. Dictated By: Servando Null DO 09/09/20 21:30 JOB #: [id number] Transcribed By: sadia 09/10/20 14:52 Electronically signed by: E-Sign: Dr. Servando Null D.O. 09/14/20 08:00 Page 2 of 2 OSVALDO CHRISTY Emergency Room Report Normal [facility] ACETAMINOPHENon 09-09-2020 Acetaminophen [Mass/Vol] ug/mL Low 10.0 - 30.0 [facility] Comment on above: Performed By: #### 2 [id number] #### [facility],[address] [place] [address] ALCOHOL-BLOOD MEDICALon 08-15 Ethanol [Mass/Vol] 219 mg/dL High 0 - 50 [facility] Comment on above: Performed By: #### 2 [id number] #### [facility],[address] [place] [address] CBC + DIFFon 09-09-2020 Baso # 0.10 x10EE3/UL Normal 0.00 - 0.10 [facility] Comment on above: Performed By: #### 2 [id number] #### [facility],[address] [place], [place] [id number] Basophils/100 WBC (Bld) 1.1 % Normal 0.0 - 2.0 [facility] Comment on above: Performed By: #### 2 [id number] #### [facility],[address] [place] [address] CBC + DIFF Normal [facility] Comment on above: Result Comment: CBC- COMPLETE BLOOD COUNT Performed By: #### 2 [id number] #### [facility],[address] [place] [address] EO # 0.20 x10EE3/UL Normal 0.00 - 0.50 [facility] Comment on above: Performed By: #### 2 [id number] #### [facility],[address] [place] [id number] Eosinophils/100 WBC (Bld) 2.0 % Normal 0.0 - 7.0 [facility] Comment on above: Performed By: #### 2 14838 #### [facility],[address] [place], [place] [id number] Erythrocyte distribution width (RBC) [Ratio] 13.9 % Normal 12.0 - 15.6 [facility] Comment on above: Performed By: #### 2 44770 #### [facility],[address] [place] [address] 48925 Hematocrit (Bld) [Volume fraction] 44.0 % Normal 40.0 - 52.0 [facility] Comment on above: Performed By: #### 2 00795 #### [facility],[address] [place] [address] 77273 Hemoglobin (Bld) [Mass/Vol] 15.3 g/dL Normal 13.0 - 17.5 [facility] Comment on above: Performed By: #### 2 38585 #### [facility],[address] [place] [address] Lymph # 3.00 x10EE3/UL High 0.80 - 2.80 [facility] Comment on above: Performed By: #### 2 52832 #### [facility],[address] [place] [address] 84704 Lymphocytes/100 WBC (Bld) 29.7 % Normal 20.0 - 45. 0 [facility] Comment on above: Performed By: #### 2 10596 #### [facility],[address] [place] [address] 26344 MANUAL DIFF N/A Normal [facility] Comment on above: Performed By: #### 2 14384 #### [facility],[address] [place] [address] 37328 MCH (RBC) [Entitic mass] 32 pg Normal 27 - 33 [facility] Comment on above: Performed By: #### 2 65281 #### [facility],[address] [place] [address] 11449 MCHC 35 X10 3 Normal 32 - 36 [facility] Comment on above: Performed By: #### 2 36786 #### [facility],[address] [place] [address] 28669 MCV (RBC) [Entitic vol] 91 fL Normal 81 - 98 [facility] Comment on above: Performed By: #### 2 87094 #### [facility],[address] [place] [address] 29653 [place] # 0.50 x10EE3/UL Normal 0.20 - 1.00 [facility] Comment on above: Performed By: #### 2 89276 #### [facility],[address] [place] [address] 29248 MONOS % 5.1 % Normal 0.0 - 10.0 [facility] Comment on above: Performed By: #### 2 37618 #### [facility],[address] [place] [address] 57655 Morphology Manpreet (Bld) [Interp] N/A Normal [facility] Comment on above: Result Comment: {CD] Performed By: #### 2 18278 #### [facility],[address] [place] [address] 08848 Neut # 6.20 x10EE3/UL Normal 1.50 - 7.10 [facility] Comment on above: Performed By: #### 2 98236 #### [facility],[address] [place] [address] 35887 Neutrophils/100 WBC (Bld) 62.1 % Normal 46.0 - 76. 0 [facility] Comment on above: Performed By: #### 2 66263 #### [facility],[address] [place] [address] 51893 PLATELET 292 x10EE3/UL Normal 150 - 450 [facility] Comment on above: Performed By: #### 2 59152 #### [facility],[address] [place] [address] 13534 Platelet mean volume (Bld) [Entitic vol] 7.6 fL Normal 6.4 - 10.5 [facility] Comment on above: Result Comment: AUTO MATED DIFFERENTIAL Performed By: #### 2 94812 #### [facility],[address] [place] [address] 99565 RBC 4.83 x 10EE6/UL Normal 4.50 - 6.00 [facility] Comment on above: Performed By: #### 2 45305 #### [facility],[address] [place] [address] 68581 WBC 10.0 x 10EE3/UL Normal 4.5 - 10.8 [facility] Comment on above: Performed By: #### 2 37135 #### [facility],[address] [place] [address] 17963 CMP with eGFRon 09-09-2020 AGE 40 years Normal [facility] Comment on above: Performed By: #### 2 10596 #### [facility],[address] [place] [address] 98223 Albumin [Mass/Vol] 4.1 g/dL Normal 3.4 - 5.0 [facility] Comment on above: Performed By: #### 2 49348 #### [facility],[address] [place] [address] 90369 Albumin/Globulin [Mass ratio] 1.1 {ratio} Normal 0.9 - 1.6 [facility] Comment on above: Performed By: #### 2 57325 #### [facility],[address] [place] [address] 59902 ALK PHOS 84 U/L Normal 46 - 116 [facility] Comment on above: Performed By: #### 2 13316 #### [facility],[address] [place] [address] 94264 ALT [Catalytic activity/Vol] 211 U/L High 16 - 63 [facility] Comment on above: Performed By: #### 2 37943 #### [facility],[address] [place] [address] 04668 Anion gap [Moles/Vol] 20 mmol/L Normal 10 - 20 [facility] Comment on above: Performed By: #### 2 26914 #### [facility],[address] [place] [address] 46512 AST [Catalytic activity/Vol] 140 U/L High 15 - 37 [facility] Comment on above: Performed By: #### 2 34425 #### [facility],[address] [place] [address] 31806 B/C RATIO 12 ratio Normal 0 - 30 [facility] Comment on above: Performed By: #### 2 57252 #### [facility],[address] [place] [address] 68265 Bilirubin [Mass/Vol] 0.7 mg/dL Normal 0.2 - 1.0 [facility] Comment on above: Performed By: #### 2 92935 #### [facility],[address] [place] [address] 56912 Calcium [Mass/Vol] 8.6 mg/dL Normal 8.5 - 10.1 [facility] Comment on above: Performed By: #### 2 86313 #### [facility],[address] [place] [address] 09007 Chloride [Moles/Vol] 96 mmol/L Low 98 - 107 [facility] Comment on above: Performed By: #### 2 22012 #### [facility],[address] [place] [address] 81499 CMP with eGFR Normal [facility] Comment on above: Result Comment: COMP REHENSIVE METABOLIC PANEL Performed By: #### 2 17252 #### [facility],[address] [place] [address] 84121 CO2 [Moles/Vol] 24.1 mmol/L Normal 21.0 - 32.0 [facility] Comment on above: Performed By: #### 2 24594 #### [facility],[address] [place] [address] 51473 Creatinine [Mass/Vol] 0.74 mg/dL Normal 0.70 - 1.30 [facility] Comment on above: Performed By: #### 2 02908 #### [facility],[address] [place] [address] 31133 GFR/1.73 sq M.predicted among non-blacks MDRD (S/P/Bld) [Vol rate/Area] mL/min/{1.73_m2} Normal 60 - 999 [facility] Comment on above: Performed By: #### 2 29925 #### [facility],[address] [place] [address] 01861 Result Comment: ACCO RDING TO THE NATIONAL KIDNEY DISEASE EDUCATION PROGRAM(NKDE), A NORMAL eGFR IS A VALUE GREATER THAN OR EQUAL TO 60 ML/MIN/1.73 SQ METERS. CHRONIC KIDNEY DISEASE: <60mL/MIN/1.73 SQ METERS KIDNEY FAILURE: <15mL/MIN/1.73 SQ METERS THIS TEST SHOULD ONLY BE USED FOR PATIENTS 18 YEARS OF AGE AND OLDER. Globulin (S) [Mass/Vol] 3.8 g/dL Normal 1.5 - 3.8 [facility] Comment on above: Performed By: #### 2 88826 #### [facility],[address] [place] [address] 77432 Glucose [Mass/Vol] 91 mg/dL Normal 74 - 106 [facility] Comment on above: Performed By: #### 2 37710 #### [facility],[address] [place] [address] 63658 Potassium [Moles/Vol] 3.6 mmol/L Normal 3.5 - 5.1 [facility] Comment on above: Performed By: #### 2 05018 #### [facility],[address] [place] [address] 68591 Protein [Mass/Vol] 7.9 g/dL Normal 6.4 - 8.2 [facility] Comment on above: Performed By: #### 2 30189 #### [facility],[address] [place] [address] 92877 Sodium [Moles/Vol] 136 mmol/L Normal 136 - 145 [facility] Comment on above: Performed By: #### 2 74485 #### [facility],[address] [place] [address] 39070 Urea nitrogen [Mass/Vol] 9 mg/dL Normal 7 - 18 [facility] Comment on above: Performed By: #### 2 09246 #### [facility],[address] [place], [place] [address] DRUG SCREEN URINE MEDICon AMPHETAMINES Negative [facility] Comment on above: Performed By: #### 2 22540 #### [facility],[address] [place] [address] B-DIAZEPINES Negative [facility] Comment on above: Performed By: #### 2 18281 #### [facility],[address] [place], [place] [address] BARBITURATES Negative [facility] Comment on above: Performed By: #### 2 75454 #### [facility],[address] [place] [address] COCAINE Negative [facility] Comment on above: Performed By: #### 2 11993 #### [facility],[address] [place] [address] 72964 DRUG SCREEN URINE MEDIC Normal [facility] Comment on above: Result Comment: DRUG SCREEN - URINE Performed By: #### 2 50536 #### [facility],[address] [place] [address] 00188 METHADONE Negative [facility] Comment on above: Performed By: #### 2 51277 #### [facility],[address] [place] [address] 06821 OPIATES Negative [facility] Comment on above: Performed By: #### 2 56121 #### [facility],[address] [place] [address] 03282 PCP Negative Normal [facility] Comment on above: Performed By: #### 2 12826 #### [place] [id number] THC Negative Normal [facility] Comment on above: Result Comment: IVON ENTS RECEIVING PROTON PUMP INHIBITORS MAY DEMONSTRATE FALSE POSITIVE THC/CANNABINOID RESULTS. AN ALTERNATIVE CONFIRMATORY METHOD SHOULD BE CONSIDERED TO VERIFY POSITIVE RESULTS. Performed By: #### 2 66401 #### [facility],[address] [place], [place] [id number] SALICYLATEon 09-09-2020 SALICYLATE 4.2 mg/dl Normal 2.8 - 20.0 [facility] Comment on above: Result Comment: *PAT IENTS TREATED WITH SULFASALAZINE MAY GENERATE A FALSE HIGH RESULT FOR SALICYLATE. *PATIENTS TREATED WITH SULFAPYRIDINE MAY GENERATE A FALSE LOW RESULT FOR SALICYLATE. Performed By: #### 2 46793 #### [place] [id number] URINALYSISon 09-09-2020 Bilirubin Ql (U) Negative Normal NORMAL: NEGATIVE [facility] Comment on above: Performed By: #### 2 54224 #### [place] [phone] Clarity (U) clear Normal NORMAL: CLEAR [facility] Comment on above: Performed By: #### 2 30659 #### [facility],[address] [place] [address] 09593 Color (U) p.yel Normal NORMAL: YELLOW [facility] Comment on above: Performed By: #### 2 40262 #### [address] [address] Glucose Ql (U) NORM Normal NORMAL: NORMAL [facility] Comment on above: Performed By: #### 2 49830 #### [facility],[address] [place] [address] 39485 Hemoglobin Ql (U) Negative Normal NORMAL: NEGATIVE [facility] Comment on above: Performed By: #### 2 97828 #### [facility],[address] [place] [address] 69098 Ketone 15 Abnormal NORMAL: NEGATIVE [facility] Comment on above: Performed By: #### 2 84558 #### [facility],[address] [place] [address] 36015 Leukocytes Negative Normal NORMAL: NEGATIVE [facility] Comment on above: Performed By: #### 2 15039 #### [facility],[address] [place] [address] Nitrite Ql (U) Negative Normal NORMAL: NEGATIVE [facility] Comment on above: Performed By: #### 2 24143 #### [facility],[address] [place] [address] pH (U) 6 [pH] Normal NORMAL: 5.0-8.0 [facility] Comment on above: Performed By: #### 2 42131 #### [facility],[address] [place] [address] Protein Ql (U) 15 Abnormal NORMAL: NEGATIVE [facility] Comment on above: Performed By: #### 2 18630 #### [facility],[address] [place] [address] Sp [place] 1.015 Normal NORMAL: 1.010-1.030 [facility] Comment on above: Performed By: #### 2 87459 #### [facility],[address] [place] [address] Specimen Type Void Normal [facility] Comment on above: Performed By: #### 2 52867 #### [facility],[address] [place] [address] Urinalysis dipstick W Reflex Microscopic panel (U) NOT INDICATED Normal [facility] Comment on above: Performed By: #### 2 78939 #### [facility],[address] [place] [address] Urobilinog NORM Normal NORMAL: NORMAL [facility] Comment on above: Performed By: #### 2 18835 #### Jason [facility],[address] [address] Vital Signs Date Time Vital Sign Value Performing Clinician Bg oneill 09-02-2024 11:34-0400 Body temperature 98.8 [degF] JAYNE Almendarez MD Work Phone: [facility] [employer] 09-02-2024 11:34-0400 Diastolic blood pressure 89 mm[Hg] JAYNE Almendarez MD Work Phone: [facility] 09-02-2024 11:34-0400 Heart rate 94 /min JAYNE Almendarez MD Work Phone: [facility] [employer] 09-02-2024 11:34-0400 Respiratory rate 16 /min JAYNE Almendarez MD Work Phone: [facility] [employer] 09-02-2024 11:34-0400 SaO2% (BldA) [Mass fraction] 97 % JAYNE Almendarez MD Work Phone: [facility] [employer] 09-02-2024 11:34-0400 Systolic blood pressure 130 mm[Hg] JAYNE Almendarez MD Work Phone: [facility] [employer] 08-29-2024 13:12-0400 Body height 162.6 cm JAYNE Almendarez MD Work Phone: [facility] [employer] 08-29-2024 13:12-0400 Body mass index (BMI) [Ratio] 25.75 kg/m2 JAYNE Almendarez MD Work Phone: [facility] [employer] 08-29-2024 13:12-0400 Body weight 68.04 kg JAYNE Almendarez MD Work Phone: [facility] [employer] 08-16-2023 12:03-0400 Body height 162.6 cm Reid Rankin MD Work Phone: [facility] [employer] 08-16-2023 12:03-0400 Body mass index (BMI) [Ratio] 26.47 kg/m2 Reid Rankin MD Work Phone: [facility] [employer] 08-16-2023 12:03-0400 Body temperature 97.59 [degF] Reid Rankin MD Work Phone: [facility] [employer] 08-16-2023 12:03-0400 Body weight 69.94 kg Reid Rankin MD Work Phone: [facility] [employer] 08-16-2023 12:03-0400 Diastolic blood pressure 71 mm[Hg] Reid Rankin MD Work Phone: [facility] [employer] 08-16-2023 12:03-0400 Heart rate 58 /min Reid Rankin MD Work Phone: [facility] [employer] 08-16-2023 12:03-0400 Systolic blood pressure 117 mm[Hg] Reid Rankin MD Work Phone: [facility] [employer] 07-27-2023 09:23-0400 Body height 162.6 cm Reid Rankin MD Work Phone: [facility] [employer] 07-27-2023 09:23-0400 Body mass index (BMI) [Ratio] 27.29 kg/m2 Reid Rankin MD Work Phone: [facility] [employer] 07-27-2023 09:23-0400 Body temperature 97.7 [degF] Reid Rankin MD Work Phone: [facility] [employer] 07-27-2023 09:23-0400 Body weight 72.12 kg Reid Rankin MD Work Phone: [facility] [employer] 07-27-2023 09:23-0400 Diastolic blood pressure 73 mm[Hg] Reid Rankin MD Work Phone: [facility] [employer] 07-27-2023 09:23-0400 Heart rate 86 /min Reid Rankin MD Work Phone: [facility] [employer] 07-27-2023 09:23-0400 Respiratory rate 16 /min Reid Rankin MD Work Phone: [facility] [employer] 07-27-2023 09:23-0400 Systolic blood pressure 111 mm[Hg] Reid Rankin MD Work Phone: [facility] Encounters Encounter Date Encounter Type Care Provider Facility Start: 01-24-2025 ambulatory Servando Villalta Facili ty:[facility] Start: 01-24-2025 End: 01-26-2025 Evaluation and management of inpatient No Primary Care Physician Facility:[facility] Start: 08-29-2024 End: 09-02-2024 Evaluation and management of inpatient J Zully Almendarez MD Work Phone: [facility] Comment on above: Alcohol abuse with w ithdrawal (HCC) (Primary Dx) Start: 08-16-2023 End: 08-16-2023 Office outpatient visit 15 minutes Carl Shen MD Work Phone: [facility] Comment on above: Tobacco use disorder (Primary Dx); Constipation by delayed colonic transit; Mixed hyperlipidemia Start: 08-15-2023 End: 08-15-2023 Subsequent hospital visit by physician Carl Shen MD Work Phone: [facility] Comment on above: Abdominal fullness i n left upper quadrant Start: 07-27-2023 End: 07-27-2023 Office outpatient new 45 minutes Carl Shen MD Work Phone: [facility] Comment on above: Alcohol use disorder (Primary Dx); Tobacco use disorder; Abdominal fullness in left upper quadrant; Screening due; Encounter for screening involving social determinants of health (SDoH) Start: 09-09-2020 End: 09-10-2020 Emergency department patient visit SERVANDO BOJORQUEZ [facility] Procedures Date Procedure Procedure Detail Performing Clinician Start: 08-29-2024 SARS-CoV-2 (COVID-19 ) Ag [Presence] in Respiratory specimen by Rapid immunoassay Roma Flaherty PA-C Work Phone: Start: 08-29-2024 Comprehensive metabo lic panel Roma Flaherty PA-C Work Phone: Start: 08-29-2024 End: 08-29-2024 Drug test def 1-7 classes Roma Flaherty PA-C Work Phone: Start: 08-29-2024 Ecg routine ecg w/le ast 12 lds trcg only w/o i&r J Zully Almendarez MD Work Phone: Start: 08-29-2024 Adult depression scr eening assessment JAYNE Almendarez MD Work Phone: Start: 08-16-2023 Adult depression scr eening assessment Reid Rankin MD Work Phone: Start: 08-15-2023 Us abdominal real ti me w/image limited Reid Rankin MD Work Phone: Start: 07-27-2023 Comprehensive metabo lic panel Reid Rankin MD Work Phone: Start: 07-27-2023 Iaad ia hiv-1 ag w/h iv-1 & hiv-2 antbdy single Reid Rankin MD Work Phone: Start: 07-27-2023 Lipid panel Reid gary MD Work Phone: Start: 07-27-2023 Adult depression scr eening assessment Reid Rankin MD Work Phone: Start: 07-27-2023 Lipid 1996 panel - S riaz or Plasma Reid Rankin MD Work Phone: Start: 09-09-2020 Urinalysis SERVANDO Burgos Comment on above: Result Comment: URIN ALYSIS Performed By: #### 2 82796 #### [facility],[address] [place] [address] Plan of Treatment Date Care Activity Detail Author Start: 2057 RSV Immunization for Adults (1 - 1-dose 75+ series) RSV Immunization for Adults (1 - 1-dose 75+ series) [facility] Start: 2042 RSV Immunization age d 60 or older (1 - 1-dose 60+ series) RSV Immunization aged 60 or older (1 - 1-dose 60+ series) [facility] Start: 01-10-2032 Zoster Vaccines (1 of 2) Zoster Vacc yvette (1 of 2) [facility] Start: 07-26-2028 Lipid panel Lipid Panel [facility] Start: 07-26-2026 Diabetes mellitus screening Diabetes Screening [facility] Start: 08-29-2025 Depression Screening Depression Scre ening [facility] Start: 12-15-2024 Influenza vaccination Influenz a Vaccine (Season Ended) [facility] Start: 08-15-2024 Depression Screening Depression Scre ening [facility] Start: 07-26-2024 Depression Screening Depression Scre ening [facility] Start: 12-16-2023 COVID-19 Vaccine ( season) COVID-19 Vaccine () [facility] Start: 12-16-2023 Influenza vaccination Influenz a Vaccine (Season Ended) [facility] Start: 10-22-2023 End: 10-22-2023 Patient encounter procedure 10/22/2023 1:20 PM EDT Office Visit [facility] [address] [phone] Sonam Wolf MD [address] [phone] [facility] Start: 08-16-2023 End: 08-16-2023 Patient encounter procedure 08/16/2023 11:00 AM EDT Office Visit [facility] [address] [phone] Reid Rankin MD [address] [phone] [facility] Start: 08-07-2023 End: 08-07-2023 Patient encounter procedure 08/07/2023 9:30 AM EDT Appointment [facility] [address] [place] [phone] Carl Shen MD [address] [phone] [facility] Start: 07-27-2023 End: 07-26-2024 US Abdomen limited US abdomen limited Imaging Routine Abdominal fullness in left upper quadrant Expected: 07/27/2023, Expires: 07/26/[address] [facility] [employer] Work Phone: Comment on above: Expected: 07/27/2023 , Expires: 07/26/2024 Start: 12-15-2022 COVID-19 Vaccine ( season) COVID-19 Vaccine ( season) [facility] Start: 2001 DTaP/Tdap/Td Vaccine s (1 - Tdap) DTaP/Tdap/Td Vaccines (1 - Tdap) [facility] Start: 2001 Hepatitis B Vaccines (1 of 3 - 19+ 3-dose series) Hepatitis B Vaccines (1 of 3 - 19+ 3-dose series) [facility] Start: 2001 Pneumococcal Vaccine : Pediatrics (0 to 5 Years) and At-Risk Patients (6 to 49 Years) (1 of 2 - PCV) Pneumococcal Vaccine: Pediatrics (0 to 5 Years) and At-Risk Patients (6 to 49 Years) (1 of 2 - PCV) [facility] Start: 01-10-1988 Pneumococcal Vaccine : Pediatrics (0 to 5 Years) and At-Risk Patients (6 to 64 Years) (1 of 2 - PCV) Pneumococcal Vaccine: Pediatrics (0 to 5 Years) and At-Risk Patients (6 to 64 Years) (1 of 2 - PCV) [facility] Payers Date Payer Category Payer Self-pay 2024 [facility] Managed Care - [facility] [id number] 2024 Unknown [id number] 2023 Medicaid [employer] [facility] [id number] 2023-Present [phone] [address] [place] [address] Medicaid HMO [id number] Unknown [id number] Unknown [id number] Unknown [id number] Unknown [id number] Social History Date Type Detail Facility Start: 2002 End: 09-01-2024 Tobacco smoking status NHIS Smokes tobacco daily [facility] Start: 2002 History of tobacco use Cigarette Smo ker [facility] [employer] Start: 07-27-2023 End: 08-29-2024 Cigarettes smoked current (pack per day) - Reported 1 [facility] Start: 07-27-2023 Tobacco use and exposure Smokeless t obacco non-user [facility] [employer] Start: 07-27-2023 End: 09-01-2024 Alcohol intake Current drinker of alcohol (finding) [facility] [employer] Start: 07-27-2023 End: 08-29-2024 [facility] [employer] [facility] Has the [employer], or [employer] threatened to shut off services in your home in past 12Mo No [facility] Are you now , , , , never or living with a partner? Never [facility] How often to you hav e a drink containing alcohol? Never [facility] How many standard dr inks containing alcohol do you have on a typical day? Patient does not drink [facility] How hard is it for y ou to pay for the very basics like food, housing, medical care, and heating Somewhat hard [facility] Do you feel stress - tense, restless, nervous, or anxious, or unable to sleep at night because your mind is troubled all the time - these days [OSQ] Not at all [facility] (I/We) worried wheth er (my/our) food would run out before (I/we) got money to buy more. Sometimes true [facility] At any time in the p ast 12 months, were you homeless or living in long term [including now]? Yes [facility] Start: 07-27-2023 Alcohol Comment 18+ beers daily [facility] Start: 1980 Sex Assigned At Male [facility] Start: 07-27-2023 Gender identity Identifies as male gender (finding) [facility] Start: 07-27-2023 Sexual orientation Choose not to dis close [facility] (I/We) worried wheth er (my/our) food would run out before (I/we) got money to buy more. Never true [facility] Start: 09-01-2024 Tobacco use and exposure User of smo keless tobacco [facility] History of tobacco use Snuff User [facility] History of tobacco use Chews Tobacco [facility] How often to you hav e a drink containing alcohol? 4 or more times a week [facility] How many standard dr inks containing alcohol do you have on a typical day? [address] [facility] How often do you hav e 6 or more drinks on 1 occasion? Daily or almost daily [facility] Do you feel stress - tense, restless, nervous, or anxious, or unable to sleep at night because your mind is troubled all the time - these days [OSQ] Only a little [facility] Start: 09-01-2024 Tobacco Comment 09/01/2024 Star prem smoking in , smokes 1 ppd. No vaping. Uses smokeless tobacco sometimes. [facility] Start: 06-13-2023 Sex Male (finding) [facility] Functional Status Date Assessment Result Facility 08-29-2024 Post traumatic stres s disorder checklist - civilian version DSM-5 [PCL-5] [facility] 08-29-2024 Drug Abuse Screening Test-10 [DAST-10] [facility] 08-29-2024 Patient Health Questionnaire 2 item (PHQ- 2) [Reported] [facility] 08-29-2024 PHQ-9 quick depression assessment panel [ Reported.PHQ] [facility] Clinical Notes 07-27-2023 to 01-26-2025 Maciel Jane MD - 09/02/2024 1:15 PM Traci Monsalve RN - 09/02/2024 1:14 PM Traci Monsalve RN - 09/02/2024 1:14 PM Traci Monsalev RN - 09/02/2024 10:40 AM EDT Note Date & Type Note Facility 01-26-2025 Note [facility] Medical Records Department [address] [place] [address] Discharge Summary 01/26/25 1324 MR#: [id number] Acct: [id number] Name: OSVALDO CHRISTY Rep #: [id number] : 1980 45 From: Servando Gaytan MD PCP: Care Physician,No Primary Status:ADM IN [id number] Prov[facility] Date of Admission: 01/24/25 Date of Discharge: 01/26/25 Primary Care Physician: No Primary Care Phys Reason For Visit: ACUTE ETOH INTOXICATION IN THE SETTING OF Diagnosis Discharge Diagnosis (1) Acute alcohol intoxication: Status: Acute Code(s): F10.929 - Alcohol use, unspecified with intoxication, unspecified Qualifiers: Complication of substance-induced condition: uncomplicated Qualified Code(s): F10.920 - Alcohol use, unspecified with intoxication, uncomplicated (2) Chronic alcohol abuse: Status: Chronic Code(s): F10.10 - Alcohol abuse, uncomplicated (3) Tobacco abuse: Status: Chronic Code(s): Z72.0 - Tobacco use (4) Depression with anxiety: Status: Acute Code(s): F41.8 - Other specified anxiety disorders Plan Patient is a 45-year-old gentleman with history of chronic alcohol dependence presented with acute alcohol withdrawal 1. Acute alcohol withdrawal - Patient has been admitted for treatment with phenobarb taper in addition to adjuvant medications including gabapentin, Bentyl, hydroxyzine and clonidine as needed for alcohol withdrawal symptoms. Patient was also placed on thiamine and folic acid, consultation placed to 180 counseling services/addiction medicine to assist with placement in an inpatient facility. Plan is for patient to be discharged home/[facility] before going to [facility] inpatient facility 2. Depression with anxiety ??? Patient to follow-up with primary care physician for subsequent treatment 3. Tobacco dependence ??? Counseled on cessation, offered nicotine patch for tobacco cravings 4. DVT prophylaxis ??? Low risk to encourage daily ambulation Time spent in the patient's overall evaluation,decision-making process, review of diagnostic data, adjustment of management, discussion with other providers, nursing nursing and ancillary staff involved in patient's care documentation 35 Minutes Medications at Discharge Home Medications multivitamin 1 tab PO DAILY supplement #30 tabs 11/15/22 Physical Exam Narrative GENERAL: cooperative HEENT: Atraumatic; normocephalic EYES; Anicteric, Normal Conjunctiva NECK; supple, normal thyroid, RESPIRATORY: Diminished to auscultation CARDIOVASCULAR: Regular S1 S2, GI: soft, normoactive bowel sounds, : No Renal angle tenderness; EXTREMITIES: No edema, no clubbing, MUSCULOSKELETAL: no muscle wasting NEURO: Awake; no lateralizing signs. SKIN: No Rash PSYCH; Flat affect Medical Records Data Homelessness:: Unsheltered Weight / BMI Weight Weight: 62.3 kg Body Mass Index (BMI) 23.4 ABG / Lab / Microbiology Data 01/24/25 01:00 01/24/25 01:00 D/C Instructions Discharge Activity: Return to Normal Activity Call your doctor if you observe: Fever of 101 or Higher, Shortness of breath, Fainting spells and Chest pain DC O2, CPAP, BIPAP Needs Home O2 Discharge instructions: No Meaningful Use Info Meaningful Use Meaningful Use Diagnoses (Choose all that apply): None applicable Discharge Plan Admission Admit Date/Time: 01/24/25 02:26 Attending Provider: Servando Gaytan Primary Care Provider: Care Physician,No Primary Consulting Providers: Servando Villalta; Raúl Ramirez Discharge Orders/Prescriptions Prescriptions: No Action multivitamin Tablet 1 tab PO DAILY Qty: 30 0RF Referrals / Follow Up: Care Physician,No Primary [Primary Care Provider, Medical] - Within 2 Weeks Disposition Disposition (needs filled in before D/C Order can be placed): Home, Self Care Charges/Coding Visit Charges Inpatient E M: 12580 Disch Hosp >30min 01/26/25 1327 Cosigner Signature (if applicable): CC: Dr. Servando Gaytan MD; No Primary Care Physician Signed [facility] 09-02-2024 Hospital course Narrative Images from the original note were not included. ADDICTION MEDICINE 4E DETOX UNIT DISCHARGE SUMMARY Patient MRN TED hCristy [id number] 1980 Admit Date Discharge Date 08/29/2024 09/02/2024 Visit Status Admission Primary Care Physician Reid Rankin MD Admitting Physician Barrett Cedillo MD Consultants None. Reason for Admission Alcohol detox. DISCHARGE DIAGNOSIS Active Problems Principal Problem: Alcohol withdrawal with inpatient treatment, uncomplicated (HCC) Active Problems: Severe alcohol use disorder (HCC) Resolved Problems Alcohol withdrawal with inpatient treatment, uncomplicated (HCC) Body mass index is 25.75 kg/m . DETOXIFICATION COURSE Detoxed with a phenobarbital taper and prn medications for alcohol withdrawal symptoms. Gabapentin was also used as an adjunct. Detox course was uneventful. He works at the [employer] and says he may have lost his job due to alcoholism but will try to get it back and attend 12 step meetings. Declined CD IOP referral and Vivitrol for MAT. Vitals height is 5' 4 (1.626 m) and weight is 150 lb (68 kg). His temporal temperature is 37.1 C (98.8 F). His blood pressure is 130/89 and his pulse is 94. His respiration is 16 and oxygen saturation is 97%. Physical Exam Vitals and nursing note reviewed. Constitutional: General: He is not in acute distress. Appearance: Normal appearance. He is not ill-appearing. HENT: Head: Normocephalic and atraumatic. Mouth/Throat: Mouth: Mucous membranes are dry. Eyes: Extraocular Movements: Extraocular movements intact. Cardiovascular: Rate and Rhythm: Normal rate and regular rhythm. Pulmonary: Effort: Pulmonary effort is normal. Breath sounds: Normal breath sounds. Abdominal: General: Abdomen is flat. Palpations: Abdomen is soft. Musculoskeletal: General: Normal range of motion. Neurological: General: No focal deficit present. Mental Status: He is alert and oriented to person, place, and time. Psychiatric: Mood and Affect: Mood normal. Behavior: Behavior normal. Thought Content: Thought content normal. Judgment: Judgment normal. Labs Results for orders placed or performed during the hospital encounter of 08/29/24 ECG 12 lead Collection Time: 08/29/24 1:21 PM Result Value Ref Range Heart Rate 129 bpm QRSD Interval 87 ms QT Interval 297 ms QTC Interval 436 ms P [place] 76 degrees QRS [place] 51 degrees T Wave [place] 41 degrees [place] Interval 115 ms Drug screen panel, emergency Collection Time: 08/29/24 1:35 PM Result Value Ref Range AMPHETAMINE SCREEN Negative BARBITURATES SCREEN Negative BENZODIAZEPINE SCREEN Negative COCAINE METAB. SCREEN Negative METHADONE SCREEN Negative OPIATES SCREEN Negative OXYCODONE SCREEN Negative PHENCYCLIDINE SCREEN Negative FENTANYL SCREEN, UR QUAL Negative CBC auto differential Collection Time: 08/29/24 1:53 PM Result Value Ref Range Auto WBC 6.5 3.6 - 10.7 10*3/uL RBC 4.77 4.40 - 5.90 10*6/uL Hemoglobin 15.3 13.0 - 18.0 g/dL Hematocrit 44.2 40.0 - 52.0 % MCV 92.7 77.0 - 99.0 fL MCH 32.1 26.0 - 34.0 pg MCHC 34.6 30.5 - 36.0 % RDW 14.6 11.5 - 15.0 % Platelets 365 140 - 440 10*3/uL MPV 8.9 (L) 9.0 - 12.7 fL nRBC 0.0 0.0 - 2.0 /100 WBCs Neutrophils Relative 52.9 38.0 - 82.0 % Lymphocytes Relative 32.3 15.0 - 45.0 % Monocytes Relative 8.7 5.0 - 13.0 % Eosinophils Relative 3.8 0.0 - 6.0 % Basophils Relative 2.0 0.0 - 2.0 % Immature Grans % 0.3 0.0 - 2.0 % Neutrophils Absolute 3.5 1.8 - 7.5 10*3/uL Lymphocytes Absolute 2.1 1.0 - 4.3 10*3/uL Monocytes Absolute 0.6 0.0 - 0.9 10*3/uL Eosinophils Absolute 0.3 0.0 - 0.5 10*3/uL Basophils Absolute 0.1 0.0 - 0.2 10*3/uL Immature Grans Absolute 0.0 <0.1 10*3/uL Comprehensive metabolic panel Collection Time: 08/29/24 1:53 PM Result Value Ref Range SODIUM 138 136 - 145 mmol/L POTASSIUM 3.5 3.5 - 5.1 mmol/L CHLORIDE 104 98 - 107 mmol/L CARBON DIOXIDE 20 (L) 22 - 29 mmol/L ANION GAP 14 (H) 3 - 13 mmol/L UREA NITROGEN 7 (L) 8 - 21 mg/dL CREATININE 0.71 (L) 0.72 - 1.25 mg/dL GLUCOSE 92 74 - 100 mg/dL CALCIUM 8.5 8.4 - 10.2 mg/dL AST (SGOT) 58 (H) <34 U/L ALT 38 <40 U/L ALKALINE PHOSPHATASE 83 40 - 150 U/L ALBUMIN 4.3 3.5 - 5.0 g/dL BILIRUBIN, TOTAL 0.4 <1.2 mg/dL TOTAL PROTEIN 7.2 6.4 - 8.3 g/dL eGFR >90.0 >60.0 mL/min/1.73m*2 Ethanol Collection Time: 08/29/24 1:53 PM Result Value Ref Range ETHANOL IN SER/PLAS 251 (H) <10 mg/dL SARS-CoV-2 Antigen Collection Time: 08/29/24 1:54 PM Specimen: Nose; Swab Result Value Ref Range SARS-CoV-2 Antigen Negative Negative Imaging ECG 12 lead Result Date: 08/29/2024 Sinus tachycardia No prior EKG available Electronically Signed On 08-29-2024 13:26:20 EDT by Cedrick Cuadra Scheduled Inpatient Meds Scheduled Meds[1] PRN Inpatient Meds PRN Meds[2] DISCHARGE INSTRUCTIONS Activity activity as tolerated. Disposition Home. Medication List CONTINUE taking these medications nicotine polacrilex 4 MG lozenge Commonly known as: Commit Dissolve 1 lozenge (4 mg) in the mouth every 2 hours as needed for smoking cessation. Follow Up Reid Rankin MD [address] [place] [id number] The patient was also instructed to: Attend AA/NA meetings or a similar 12-step program. Abstain from any mind or mood altering substances that are not prescribed. Follow up with their primary care doctor and/or psychiatrist as soon as possible. Pending studies or issues to follow up with: Consider starting Vivitrol for MAT. Time spent on discharge summary: < 30 minutes [1] folic acid, 1 mg, Oral, Daily gabapentin, 300 mg, Oral, q8h thiamine, 100 mg, Oral, TID [2] PRN medications: dicyclomine, hydrOXYzine pamoate, loperamide, nicotine polacrilex, nicotine polacrilex, ondansetron, PHENobarbital, senna-docusate sodium, traZODone documented in this encounter [facility] 09-02-2024 Note ADDICTION MEDICINE 4E DETOX UNIT DISCHARGE SUMMARY __ Patient MRN TED Christy [id number] 1980 Admit Date Discharge Date 08/29/2024 09/02/2024 Visit Status Admission Primary Care Physician Reid Rankin MD Admitting Physician Barrett Cedillo MD Consultants None. Reason for Admission Alcohol detox. DISCHARGE DIAGNOSIS Active Problems Principal Problem: Alcohol withdrawal with inpatient treatment, uncomplicated (HCC) Active Problems: Severe alcohol use disorder (HCC) Resolved Problems Alcohol withdrawal with inpatient treatment, uncomplicated (HCC) Body mass index is 25.75 kg/m?. DETOXIFICATION COURSE Detoxed with a phenobarbital taper and prn medications for alcohol withdrawal symptoms. Gabapentin was also used as an adjunct. Detox course was uneventful. He works at the [employer] and says he may have lost his job due to alcoholism but will try to get it back and attend 12 step meetings. Declined CD IOP referral and Vivitrol for MAT. Vitals height is 5' 4 (1.626 m) and weight is 150 lb (68 kg). His temporal temperature is 37.1 ?C (98.8 ?F). His blood pressure is 130/89 and his pulse is 94. His respiration is 16 and oxygen saturation is 97%. Physical Exam Vitals and nursing note reviewed. Constitutional: General: He is not in acute distress. Appearance: Normal appearance. He is not ill-appearing. HENT: Head: Normocephalic and atraumatic. Mouth/Throat: Mouth: Mucous membranes are dry. Eyes: Extraocular Movements: Extraocular movements intact. Cardiovascular: Rate and Rhythm: Normal rate and regular rhythm. Pulmonary: Effort: Pulmonary effort is normal. Breath sounds: Normal breath sounds. Abdominal: General: Abdomen is flat. Palpations: Abdomen is soft. Musculoskeletal: General: Normal range of motion. Neurological: General: No focal deficit present. Mental Status: He is alert and oriented to person, place, and time. Psychiatric: Mood and Affect: Mood normal. Behavior: Behavior normal. Thought Content: Thought content normal. Judgment: Judgment normal. Labs Results for orders placed or performed during the hospital encounter of 08/29/24 ECG 12 lead Collection Time: 08/29/24 1:21 PM Result Value Ref Range Heart Rate 129 bpm QRSD Interval 87 ms QT Interval 297 ms QTC Interval 436 ms P [place] 76 degrees QRS [place] 51 degrees T Wave [place] 41 degrees [place] Interval 115 ms Drug screen panel, emergency Collection Time: 08/29/24 1:35 PM Result Value Ref Range AMPHETAMINE SCREEN Negative BARBITURATES SCREEN Negative BENZODIAZEPINE SCREEN Negative COCAINE METAB. SCREEN Negative METHADONE SCREEN Negative OPIATES SCREEN Negative OXYCODONE SCREEN Negative PHENCYCLIDINE SCREEN Negative FENTANYL SCREEN, UR QUAL Negative CBC auto differential Collection Time: 08/29/24 1:53 PM Result Value Ref Range Auto WBC 6.5 3.6 - 10.7 10*3/uL RBC 4.77 4.40 - 5.90 10*6/uL Hemoglobin 15.3 13.0 - 18.0 g/dL Hematocrit 44.2 40.0 - 52.0 % MCV 92.7 77.0 - 99.0 fL MCH 32.1 26.0 - 34.0 pg MCHC 34.6 30.5 - 36.0 % RDW 14.6 11.5 - 15.0 % Platelets 365 140 - 440 10*3/uL MPV 8.9 (L) 9.0 - 12.7 fL nRBC 0.0 0.0 - 2.0 /100 WBCs Neutrophils Relative 52.9 38.0 - 82.0 % Lymphocytes Relative 32.3 15.0 - 45.0 % Monocytes Relative 8.7 5.0 - 13.0 % Eosinophils Relative 3.8 0.0 - 6.0 % Basophils Relative 2.0 0.0 - 2.0 % Immature Grans % 0.3 0.0 - 2.0 % Neutrophils Absolute 3.5 1.8 - 7.5 10*3/uL Lymphocytes Absolute 2.1 1.0 - 4.3 10*3/uL Monocytes Absolute 0.6 0.0 - 0.9 10*3/uL Eosinophils Absolute 0.3 0.0 - 0.5 10*3/uL Basophils Absolute 0.1 0.0 - 0.2 10*3/uL Immature Grans Absolute 0.0 <0.1 10*3/uL Comprehensive metabolic panel Collection Time: 08/29/24 1:53 PM Result Value Ref Range SODIUM 138 136 - 145 mmol/L POTASSIUM 3.5 3.5 - 5.1 mmol/L CHLORIDE 104 98 - 107 mmol/L CARBON DIOXIDE 20 (L) 22 - 29 mmol/L ANION GAP 14 (H) 3 - 13 mmol/L UREA NITROGEN 7 (L) 8 - 21 mg/dL CREATININE 0.71 (L) 0.72 - 1.25 mg/dL GLUCOSE 92 74 - 100 mg/dL CALCIUM 8.5 8.4 - 10.2 mg/dL AST (SGOT) 58 (H) <34 U/L ALT 38 <40 U/L ALKALINE PHOSPHATASE 83 40 - 150 U/L ALBUMIN 4.3 3.5 - 5.0 g/dL BILIRUBIN, TOTAL 0.4 <1.2 mg/dL TOTAL PROTEIN 7.2 6.4 - 8.3 g/dL eGFR >90.0 >60.0 mL/min/1.73m*2 Ethanol Collection Time: 08/29/24 1:53 PM Result Value Ref Range ETHANOL IN SER/PLAS 251 (H) <10 mg/dL SARS-CoV-2 Antigen Collection Time: 08/29/24 1:54 PM Specimen: Nose; Swab Result Value Ref Range SARS-CoV-2 Antigen Negative Negative Imaging ECG 12 lead Result Date: 08/29/2024 Sinus tachycardia No prior EKG available Electronically Signed On 08-29-2024 13:26:20 EDT by Cedrick Cuadra Scheduled Inpatient Meds Scheduled Meds[1] PRN Inpatient Meds PRN Meds[2] DISCHARGE INSTRUCTIONS Activity activity as tolerated. Dispo (more content not included)... [facility] 09-02-2024 Nurse Note Dc teaching completed. Pt verbalizes understanding of dc instructions. [facility] 09-02-2024 Nurse Note Dc teaching completed. Pt verbalizes understanding of dc instructions. #20 gauge insyte removed from RFA. Cath intact. Pt tolerated without difficulty, Pleasant, cooperative, compliant with medication. Appetite is good. Future oriented. Minimal WD symptoms. States he is doing fine. Social. Out in the milieu. Voices no other concerns. Denies si/hi/ah/vh. Patient up, social with peers with appropriate behavior. Patient takes medications with ease. Patient has a stead gait. Patient is able to make needs known. Pt denies suicidal and homicidal ideation. Pt denies visual hallucinations and auditory hallucinations. Pt denies delusions. Affect is mood-congruent and mood is euthymic. Overall cooperative. Pt is compliant with scheduled medication. He is social with peers. Patient encouraged to seek out staff with questions or concerns. Plan of care ongoing. Pt medicated with vistaril for anxiety Pt alert and oriented, med compliant, pt denies SI/HI/AVH, NV&D. Pt out in group room watching TV and social with peers. Pt encouraged to update staff with any change in condition. Will monitor pt for safety. Bedside handoff given, pt in group room socializing with peers. Patient has been social for most of the day. Patient has attended the meetings and been in the day room with the other patients. Patient has voiced no concerns during this shift. Patient is steady on his feet and ambulating fine. Patient reports no nausea today. Patient has denied any SI/HI/AVD. Pt states he noticed some burning with urination this evening, he stated he was going to keep an eye on it and see if it continued or got worse encouraged to increase water intake, educated patient if it continued or got worse to notify nursing staff. Pt alert and oriented, med compliant, pt denies SI/HI/AVH, NV&D. Pt attended 1900 meeting, social with peers, states appetite has picked up and starting to feel better. Pt encouraged to update staff with any change in condition. Will monitor pt for safety. Bedside handoff complete, pt in meeting at this time. Patient is pleasant and cooperative, up steady, eating fairly well. Monitored for safety. Patient seen resting in bed at time of interview-pleasant upon initial approach. Presented with an appropriate affect. Fair eye contact maintained throughout interaction. Reports he feels like absolute shit. Receptive to words of encouragement/emotional support. Patient up @christophe with a steady gait. Reports poor appetite and sleep-adequate rest/fluids and nutrition continually encouraged. Encouragement with ADLs provided-patient instructed to call on staff if hygiene products are needed. Minimally interactive-patient is mostly withdrawn to his room/himself this morning. Group meeting/therapy attendance continually encouraged. Cooperative with nursing care and assessment. Medication compliant. CIWA monitored per unit policy. 20 gauge IV in R forearm patent-dressing is clean, dry and intact-no c/o pain or s/s of infection noted at site. Denies all s/s of withdraw. Denies any current pain. Denies HI, but endorsed passive SI-admits to having thoughts of wanting to harm himself at times-reports these thoughts come and go. Patient went on to say, I am just sick of feeling this way, and it's no one's fault but my own. Emotional support provided. No clear plan voiced-patient able to contract for safety while on unit-agreeable to alert staff if/when thoughts occur to ensure safety. No delusions voiced/noted. No auditory or tactile hallucinations voiced/noted, but patient admitted to seeing [place] flashbacks. When asked to elaborate, patient stated I don't know, I wasn't in the service, it's kind of like PTSD I guess. Patient agreeable to alert staff if/when visuals occur to ensure safety is maintained. No s/s of physical concerns or visible distress noted. Education on appropriate call light usage reinforced. Plan of care ongoing. Pt is observed standing in the hallway vomiting. Zofran offered, pt refused. Pt refused his bedtime meds at this time. Pt is encouraged to seek staff assistance with any needs. Pt verbalizes understanding. Pt refused his bedtime meds at the beginning of the shift. Phenobarb, vitamin B1 and Trazone. Attempts made X3. Education provided. Pt verbalizes understanding. Patient arrived to the unit escorted by trasport and protective services. Patient arrived via wheelchair and patient able to ambulate to the bed without difficulty. Patient assessed and questions asked. Patient cooperative during assessment. Patient has an IV in right forearm. Patient as denied any SI/HI/AVD at this time. documented in this encounter [facility] 09-02-2024 Note Formatting of this n ote might be different from the original. INTER COM SERVICER saw patient to discuss aftercare plans and treatment post discharge. Patient was reminded about appointments. Patient declined assistance with aftercare appointments. 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 Patient denied current SI/HI/AVH. Patient provided with a bus pass in order to return to the [employer] [facility] [employer]. Bus pass entered into careport. Patient denied needing anything further from INTER COM SERVICER at the time. INTER COM SERVICER informed patient's nurse about conversation. [facility] 09-02-2024 Note Formatting of this n ote might be different from the original. INTER COM SERVICER saw patient to discuss aftercare plans and treatment post discharge. Patient was reminded about appointments. Patient declined assistance with aftercare appointments. 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 Patient denied current SI/HI/AVH. Patient provided with a bus pass in order to return to the [facility]. Bus pass entered into careport. Patient denied needing anything further from INTER COM SERVICER at the time. CALOS informed patient's nurse about conversation. T [facility] 09-02-2024 Miscellaneous Notes INTER COM SERVICER saw patient to discuss aftercare plans and treatment post discharge. Patient was reminded about appointments. Patient declined assistance with aftercare appointments. 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 Patient denied current SI/HI/AVH. Patient provided with a bus pass in order to return to the [facility]. Bus pass entered into careport. Patient denied needing anything further from INTER COM SERVICER at the time. INTER COM SERVICER informed patient's nurse about conversation. INTER COM SERVICER was consulted in order to address patient's identified social determinants of health. Patient was determined to have been identified for: Housing Food Insecurities Patient provided with extensive community's resource sheet for both identified areas. INTER COM SERVICER will continue to work with patient and provide resources that will allow for identified community assistance for patient that will address identified social determinates of health. Problem: Safety - Adult Goal: Free from fall injury Outcome: Progressing Problem: Ineffective Coping Goal: Identifies healthy coping skills Outcome: Progressing Department: [facility] Topic: Recreation Therapy Group Date: 09/01/2024 Start Time: 1125 End Time: 1215 Facilitators: Leonor Cochran Number of Participants: 7 Group Name: Recreation Therapy Treatment Modality: Recreation Therapy Purpose: enhance coping skills, build self awareness, reconnect to leisure, support socialization Summary: conversation questions (3)- To allow Patients the opportunity to explore self awareness and socialization through leisure engagement. Discussion to focus on their experience of participation, as well as, the process of reconnection to leisure interests. Name: Osvaldo Christy Date of : 1980 MR: [id number] Appearance: Good eye contact Affect: Appropriate Behavior: Pleasant Alertness: Alert Speech: Appropriate Level/Quality of Participation: engaged Interactions with others: supportive Interventions utilized were Building rapport and engagement and Empathic listening Patient's Response to Intervention: Patient engaged fully in intervention. Patient was observed being interactive with peers and laughing during the group at times. Encouragement offered in utilizing healthy leisure pursuits to support coping and recovery. Continue to encourage patient participation in groups. Patients Problems: Patient Active Problem List Diagnosis Severe alcohol use disorder (HCC) Tobacco use disorder Overweight (BMI 25.0-29.9) Abdominal fullness in left upper quadrant Constipation by delayed colonic transit Hyperlipidemia Alcohol withdrawal with inpatient treatment, uncomplicated (HCC) Department: [facility] Group Topic: Recreation Therapy Group Date: 08/31/2024 Start Time: 1605 End Time: 1658 Facilitators: Leonor Cochran Number of Participants: 10 Group Name: Recreation Therapy Treatment Modality: Recreation Therapy Purpose: enhance coping skills, reconnect to leisure, increase socialization Summary: Reconnect to Leisure: Patients were given the opportunity to engage in a healthy leisure pursuit. Group purpose is to support patients in reconnecting to the positive benefits of participation in leisure/recreation activities. Patients were offered support as needed. Discussion focused on the experience of participation. Name: Osvaldo Christy Date of : 1980 MR: [id number] Appearance: Good eye contact Affect: Appropriate Behavior: Pleasant Alertness: Alert Speech: Appropriate Level/Quality of Participation: engaged Interactions with others: supportivel, humor Interventions utilized were Building rapport and engagement Patient's Response to Intervention: Patient engaged in intervention pop culture trivia with demonstrated focus. Patient had good eye contact during interaction. Patient was observed engaging with peers and being able to laugh during the group. Patient supported in utilizing recreation to support wellness and recovery. Continue to encourage group participation as appropriate. Patients Problems: Patient Active Problem List Diagnosis Severe alcohol use disorder (HCC) Tobacco use disorder Overweight (BMI 25.0-29.9) Abdominal fullness in left upper quadrant Constipation by delayed colonic transit Hyperlipidemia Alcohol withdrawal with inpatient treatment, uncomplicated (HCC) Progressing toward goals [facility]: [facility] Topic: Leisure Skills Group Date: 08/30/2024 Start Time: 1500 End Time: 1550 Facilitators: Negra Callahan Number of Participants: 9 Group Name: Social Skills Treatment Modality: Leisure Development Purpose: enhance coping skills Summary: To expose patients to healthy leisure outlets. Name: Osvaldo Christy Date of : 1980 MR: [id number] Mental Status Exam: Appearance: Good eye contact Affect: Appropriate Behavior: Interactive Alertness: Alert Speech: Appropriate Cognition: Intact Thought Process: Goal-directed Thought Content: organized Level/Quality of Participation: engaged Interactions with others: appropriate Interventions utilized were Activity Therapy Patient's Response to Intervention: on-task; appropriate interactions & affect Progress Towards Goal(s): Goal(s) met Additional Comments: Staff will continue to encourage pt to attend AT sessions. Next Step: Continue with current services Patients Problems: Patient Active Problem List Diagnosis Alcohol use disorder Tobacco use disorder Overweight (BMI 25.0-29.9) Abdominal fullness in left upper quadrant Constipation by delayed colonic transit Hyperlipidemia Alcohol abuse with withdrawal (HCC) Problem: Sensory Perceptual Alteration as Evidenced by Goal: Participates in unit activities Outcome: Progressing Problem: Sensory Perceptual Alteration as Evidenced by Goal: Notifies staff when experiencing hallucinations/delusions Outcome: Progressing Problem: Potential for Compromised Skin Integrity Goal: Nutritional status is improving Outcome: Progressing Problem: Safety - Adult Goal: Free from fall injury Outcome: Progressing Problem: Ineffective Coping Goal: Identifies healthy coping skills Outcome: Progressing Problem: Anxiety Goal: Patient/family understands admission protocols Outcome: Progressing Problem: Anxiety Goal: Verbalizes ways to manage anxiety Outcome: Progressing Patient understanding of care plan and goals documented in this encounter [facility] 09-02-2024 Nurse Note #20 gauge insyte removed from RFA. Cath intact. Pt tolerated without difficulty, [facility] 09-02-2024 Note Formatting of this n ote might be different from the original. INTER COM SERVICER was consulted in order to address patient's identified social determinants of health. Patient was determined to have been identified for: Housing Food Insecurities Patient provided with extensive community's resource sheet for both identified areas. INTER COM SERVICER will continue to work with patient and provide resources that will allow for identified community assistance for patient that will address identified social determinates of health. [facility] 09-02-2024 Note Formatting of this n ote might be different from the original. INTER COM SERVICER was consulted in order to address patient's identified social determinants of health. Patient was determined to have been identified for: Housing Food Insecurities Patient provided with extensive community's resource sheet for both identified areas. INTER COM SERVICER will continue to work with patient and provide resources that will allow for identified community assistance for patient that will address identified social determinates of health. [facility] 09-02-2024 Note Problem: Safety - Ad ult Goal: Free from fall injury Outcome: Progressing Problem: Ineffective Coping Goal: Identifies healthy coping skills Outcome: Progressing [facility] 09-02-2024 Plan of care note Problem: Safety - Adult Goal: Free from fall injury Outcome: Progressing Problem: Ineffective Coping Goal: Identifies healthy coping skills Outcome: Progressing [facility] 09-02-2024 Nurse Note Pleasant, cooperative, compliant with medication. Appetite is good. Future oriented. Minimal WD symptoms. States he is doing fine. Social. Out in the milieu. Voices no other concerns. Denies si/hi/ah/vh. T [facility] 09-02-2024 Nurse Note Patient up, social with peers with appropriate behavior. Patient takes medications with ease. Patient has a stead gait. Patient is able to make needs known. T [facility] 09-01-2024 Group counseling note Department: [facility] Group Topic: Recreation Therapy Group Date: 09/01/2024 Start Time: 1125 End Time: 1215 Facilitators: Leonor Cochran Number of Participants: 7 Group Name: Recreation Therapy Treatment Modality: Recreation Therapy Purpose: enhance coping skills, build self awareness, reconnect to leisure, support socialization Summary: conversation questions (3)- To allow Patients the opportunity to explore self awareness and socialization through leisure engagement. Discussion to focus on their experience of participation, as well as, the process of reconnection to leisure interests. Name: Osvaldo Christy Date of : 1980 MR: [id number] Appearance: Good eye contact Affect: Appropriate Behavior: Pleasant Alertness: Alert Speech: Appropriate Level/Quality of Participation: engaged Interactions with others: supportive Interventions utilized were Building rapport and engagement and Empathic listening Patient's Response to Intervention: Patient engaged fully in intervention. Patient was observed being interactive with peers and laughing during the group at times. Encouragement offered in utilizing healthy leisure pursuits to support coping and recovery. Continue to encourage patient participation in groups. Patients Problems: Patient Active Problem List Diagnosis Severe alcohol use disorder (HCC) Tobacco use disorder Overweight (BMI 25.0-29.9) Abdominal fullness in left upper quadrant Constipation by delayed colonic transit Hyperlipidemia Alcohol withdrawal with inpatient treatment, uncomplicated (HCC) T [facility] 09-01-2024 History of Presen t illness Narrative Behavioral Health Psycho-Social Assessment (Social Work) Date: 09/01/2024 Patient Name: Osvaldo Christy : 1980 Identifying Information: Patient is a 44 year old male admitted to for alcohol withdrawal. Presenting Problem: Patient presented with a request for alcohol detox, stating he has been drinking more than a 12 pack of beer daily. Psychiatric History: Patient declines psychiatric history or treatment. Substance Abuse/Use: UDS upon admission was negative. Ethanol level was 251. He reports drinking 12-24 beers daily. He has been drinking for about 20 years, has tried inpatient treatment in the past. Today is wanting AA only so he can return to work and keep his apartment. Medical/Self-care Issues: Self care concerns related to alcohol use. 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 Does not disclose trauma or history. Family Constellation/Childhood History: Patient does not provide family history. He notes he has an apartment he needs to keep, declines residential treatment. Education/Work: Patient works at [employer], unsure if he still has his job. Cultural/Spirituality/Leisure: No cultural or spiritual preferences or concerns are reported. Support Systems/Collateral Information: Patient does not identify support persons. C-SSRS Actual Attempt (Past 3 Months): No Interrupted Attempts (Past 3 Months): No Aborted or Self-Interrupted Attempt (Past 3 Months): No Preparatory Acts or Behavior (Past 3 Months): No Has subject engaged in non-suicidal self-injurious behavior? (Past 3 Months): No Clinical Status (Recent): Substance abuse or dependence Describe any suicidal, self-injurious or aggressive behavior (include dates): no suicidal or self injurious behavior reported Plan: Patient was seen in the common area on the unit. He declines needing to speak with social work, although is polite. He intends to leave detox tomorrow and follow up with AA. He declines needing AA meeting information. He declines needing other treatment options stating he needs to be working and paying his bills. He asks if INTER COM SERVICER could get him a cab to [facility] when he discharges as his car is parked there. INTER COM SERVICER will continue attempts to engage patient in treatment and discharge planning. Comment: Please note this report has been produced using speech recognition software and may contain errors related to that system including errors in grammar, punctuation, and spelling, as well as words and phrases that may be inappropriate. If there are any questions or concerns please feel free to contact the dictating provider for clarification. Images from the original note were not included. ADDICTION MEDICINE PROGRESS NOTE Patient: Osvaldo Christy Problem List: Principal Problem: Alcohol withdrawal with inpatient treatment, uncomplicated (HCC) Active Problems: Severe alcohol use disorder (HCC) SUBJECTIVE Chief Complaint Patient presents with Alcohol Problem Pt presents to the triage window stating he is an alcoholic and needs detox. Pt admits to drinking more than a 12 pack per day. States his las drink was 1 hour ago Last 4 CIWA scores per RN assessments 1 - 3 - 7 - 3 Interim History Worried about his car at the [facility] - he was working there prior to most recent relapse, apparently now lost his job Minimal withdrawal symptoms at this point on my eval, did have CIWA of 7 overnight No clear plan for sobriety Review of Systems Review of Systems Constitutional: Positive for malaise/fatigue. Neurological: Positive for tremors. Psychiatric/Behavioral: The patient is nervous/anxious. All other systems reviewed and are negative. OBJECTIVE Vitals Vitals: 08/31/24 1745 08/31/24 2310 09/01/24 0553 09/01/24 1137 BP: 130/84 136/90 112/66 121/81 Pulse: 87 86 62 86 Resp: 16 18 Temp: 37.1 C (98.8 F) 37.1 C (98.7 F) 36.3 C (97.3 F) 37.3 C (99.1 F) TempSrc: Temporal Temporal Temporal Temporal SpO2: 99% 95% 98% Weight: Height: Physical Exam Vitals and nursing note reviewed. Constitutional: General: He is not in acute distress. Appearance: Normal appearance. He is not ill-appearing. HENT: Head: Normocephalic and atraumatic. Mouth/Throat: Mouth: Mucous membranes are moist. Eyes: Extraocular Movements: Extraocular movements intact. Cardiovascular: Rate and Rhythm: Normal rate and regular rhythm. Pulmonary: Effort: Pulmonary effort is normal. Breath sounds: Normal breath sounds. Abdominal: General: Abdomen is flat. Musculoskeletal: General: Normal range of motion. Neurological: Mental Status: He is alert and oriented to person, place, and time. Motor: No tremor. Psychiatric: Attention and Perception: Attention and perception normal. He does not perceive auditory or visual hallucinations. Mood and Affect: Mood is anxious. Speech: Speech normal. Behavior: Behavior normal. Behavior is cooperative. Thought Content: Thought content normal. Thought content is not paranoid or delusional. Thought content does not include suicidal ideation. Thought content does not include suicidal plan. Medications Home Meds Current Outpatient Medications Medication Instructions nicotine polacrilex (COMMIT) 4 mg, Mouth/Throat, Every 2 hour PRN Scheduled Inpatient Meds Scheduled Meds[1] PRN Inpatient Meds PRN Meds[2] Continuous Inpatient Infusions Continuous Meds[3] Recent Imaging ECG 12 lead Result Date: 08/29/2024 Sinus tachycardia No prior EKG available Electronically Signed On 08-29-2024 13:26:20 EDT by Cedrick Cuadra Labs CBC: Recent Labs 08/29/24 1353 WBC 6.5 HGB 15.3 PLT 365 MCV 92.7 RDW 14.6 BMP: Recent Labs 08/29/24 1353 NA 138 K 3.5 CL 104 CO2 20* BUN 7* CREATININE 0.71* CALCIUM 8.5 Liver Profile: Recent Labs 08/29/24 1353 AST 58* ALT 38 BILITOT 0.4 ALKPHOS 83 PROT 7.2 Glucose: Recent Labs 08/29/24 1353 GLUCOSE 92 Lactic Acid: No lab exists for component: LACTA Cardiac Injury Profile: No results for input(s): CKTOTAL, CKMB, TROPONINI in the last 72 hours. Last 24 Hours: No results found for this or any previous visit (from the past 24 hours). ASSESSMENT & PLAN Severe alcohol use disorder Cigarette smoker Counseled patient on biopsychosocial consequences of substance use. Encouraged professional chemical dependency treatment. Encouraged 12 step meeting attendance. Follow up plan for addiction management discussed with patient: No clear plan for sobriety. Will speak to INTER COM SERVICER today about options. Alcohol withdrawal - minimal Nicotine withdrawal Last use of alcohol was on 08/29/24. Phenobarbital taper to manage alcohol withdrawal symptoms. Changing to 32 mg q 6 hours PRN ONLY for CIWA > 6 for today. Discontinuing PRN ativan. Gabapentin 300 mg TID as adjunct. Thiamine/folic acid. CIWA scores per unit protocol. PRN medications for withdrawal symptom management added. NRT Encouraged to participate in all unit activities. Disposition: Discharge anticipated in 1 days. This is pending: Resolution of withdrawal symptoms. Medical stabilization. Labs/tests/tasks to review: aftercare plans. Refinery Operator Reforming Unit to coordinate care with: none. I reviewed the patient's medical record, and reviewed test results. I educated and then counseled the patient on any substance use disorder or chemical dependency related issues. This included a face to face evaluation and physical examination, and coordinating care on a substance use disorder treatment plan as well as documenting clinical information on the day of visit. [1] folic acid, 1 mg, Oral, Daily gabapentin, 300 mg, Oral, q8h thiamine, 100 mg, Oral, TID traZODone, 100 mg, Oral, Nightly [2] PRN medications: dicyclomine, hydrOXYzine pamoate, loperamide, LORazepam OR LORazepam, nicotine polacrilex, nicotine polacrilex, ondansetron, PHENobarbital, senna-docusate sodium [3] Images from the original note were not included. [facility] Smoking Cessation Progress Note Smoking Cessation Intervention Session type: initial Session length: 20 minutes Smoking History: Started smoking in 20's, smokes 1 ppd. No vaping. Uses smokeless tobacco sometimes. Pack Years: 22.6 How important is it to the patient to quit? (0-not important, 10-extremely important): 5 How confident is the patient that they can quit? (0-not confident, 10-extremely confident): 0 Stage of Change: Pre-contemplation Fagerstrom Test for Nicotine Dependence Score: 6 Reasons to quit smoking identified: [x]Yes []No Triggers for smoking identified: [x]Yes []No Quit strategies for smoking identified: [x]Yes []No Nicotine withdrawal symptoms reviewed: [x]Yes []No Smoking urge distractions discussed: [x]Yes []No Request for nicotine withdrawal medication: []Yes [x]No If yes, provider notified: []Yes []No Ready to choose a quit date in the next 30 days: []Yes [x]No Additional Comments: Met with patient at bedside. He is pleasant and willing to discuss his smoking history and cessation with me. Smoking cessation education with contact information explained and given to patient. NRT gum ordered this admission. Images from the original note were not included. ADDICTION MEDICINE PROGRESS NOTE Patient: Osvaldo Christy Problem List: Principal Problem: Alcohol abuse with withdrawal (HCC) SUBJECTIVE Chief Complaint Patient presents with Alcohol Problem Pt presents to the triage window stating he is an alcoholic and needs detox. Pt admits to drinking more than a 12 pack per day. States his las drink was 1 hour ago Last 4 CIWA scores per RN assessments 2 - 2 - 3 - 1 Interim History Feeling sleepy and sedated, but overall feeling minimal withdrawal symptoms Considerable diaphoresis and some anxiety remain Was able to eat and sleep well overnight Notes he is considering outpatient therapy over residential in light of wanting to keep his apartment Review of Systems Review of Systems Constitutional: Negative for chills, diaphoresis, malaise/fatigue and night sweats. Eyes: Negative for visual disturbance. Cardiovascular: Negative for chest pain. Musculoskeletal: Negative for falls. Gastrointestinal: Negative for abdominal pain, nausea and vomiting. Neurological: Negative for headaches, light-headedness and tremors. Psychiatric/Behavioral: Negative for depression, hallucinations and suicidal ideas. The patient is not nervous/anxious. OBJECTIVE Vitals Vitals: 08/30/24 1143 08/30/24 1706 08/30/24 2312 08/31/24 0603 BP: (!) 140/102 134/85 145/87 110/67 Pulse: 93 89 89 66 Resp: Temp: 36.7 C (98.1 F) 36.3 C (97.4 F) 36.8 C (98.3 F) 36.7 C (98.1 F) TempSrc: Temporal Temporal Temporal Temporal SpO2: 96% 95% 98% 96% Weight: Height: Physical Exam Constitutional: Appearance: Normal appearance. HENT: Mouth/Throat: Mouth: Mucous membranes are moist. Eyes: Extraocular Movements: Extraocular movements intact. Cardiovascular: Rate and Rhythm: Normal rate. Pulmonary: Effort: Pulmonary effort is normal. Abdominal: Palpations: Abdomen is soft. Musculoskeletal: General: Normal range of motion. Cervical back: Normal range of motion. Skin: General: Skin is warm. Neurological: General: No focal deficit present. Mental Status: He is alert and oriented to person, place, and time. Medications Home Meds Current Outpatient Medications Medication Instructions nicotine polacrilex (COMMIT) 4 mg, Mouth/Throat, Every 2 hour PRN Scheduled Inpatient Meds Scheduled Meds[1] PRN Inpatient Meds PRN Meds[2] Continuous Inpatient Infusions Continuous Meds[3] Recent Imaging ECG 12 lead Result Date: 08/29/2024 Sinus tachycardia No prior EKG available Electronically Signed On 08-29-2024 13:26:20 EDT by Cedrick Cuadra Labs CBC: Recent Labs 08/29/24 1353 WBC 6.5 HGB 15.3 PLT 365 MCV 92.7 RDW 14.6 BMP: Recent Labs 08/29/24 1353 NA 138 K 3.5 CL 104 CO2 20* BUN 7* CREATININE 0.71* CALCIUM 8.5 Liver Profile: Recent Labs 08/29/24 1353 AST 58* ALT 38 BILITOT 0.4 ALKPHOS 83 PROT 7.2 Glucose: Recent Labs 08/29/24 1353 GLUCOSE 92 Lactic Acid: No lab exists for component: LACTA Cardiac Injury Profile: No results for input(s): CKTOTAL, CKMB, TROPONINI in the last 72 hours. Last 24 Hours: No results found for this or any previous visit (from the past 24 hours). ASSESSMENT & PLAN Alcohol use disorder Counseled patient on biopsychosocial consequences of substance use. Encouraged professional chemical dependency treatment. Encouraged 12 step meeting attendance. Follow up plans for addiction management discussed with patient: Considering outpatient substance use resources Alcohol withdrawal Last use of alcohol was on 08/30. PNB taper to manage withdrawal symptoms. 32 q 6 hours for today. CIWA scores per unit protocol. PRN medications for withdrawal symptom management added. Encouraged to participate in all unit activities. NRT ordered Disposition: Discharge anticipated in 2-3 days. This is pending: Resolution of withdrawal symptoms. Medical stabilization. Labs/tests/tasks to review: aftercare. Consultants to coordinate care with: none. This patient was staffed with Dr. Montano. Vanda Sheth MD electronically signed this at 10:37 AM [1] folic acid, 1 mg, Oral, Daily gabapentin, 300 mg, Oral, q8h PHENobarbital, 64.8 mg, Oral, Q4H Followed by PHENobarbital, 32.4 mg, Oral, Q4H Followed by [START ON 09/01/2024] PHENobarbital, 16.2 mg, Oral, Q4H thiamine, 100 mg, Oral, TID traZODone, 100 mg, Oral, Nightly [2] PRN medications: dicyclomine, hydrOXYzine pamoate, loperamide, LORazepam OR LORazepam, nicotine polacrilex, nicotine polacrilex, ondansetron, senna-docusate sodium [3] Cosigned by Jayne Montano MD at 09/02/2024 10:07 AM EDT Associated attestation - Jayne Montano MD - 09/02/2024 10:07 AM EDT I saw and evaluated the patient and participated in the dial portions of the service. I reviewed the patient's medical record and test results. I personally spent a total 55 minutes in counseling and discussion with the patient and coordination of care. This included a face to face evaluation, physical examination and documenting clinical information on the day of visit. I have reviewed the [place]'s note. I agree with the Fellow s findings and plan. Nutrition rescreen completed. Patient assigned a level 1. documented in this encounter [facility] 09-01-2024 Note ADDICTION MEDICINE PROGRESS NOTE Patient: Osvaldo Christy __ Problem List: Principal Problem: Alcohol withdrawal with inpatient treatment, uncomplicated (HCC) Active Problems: Severe alcohol use disorder (HCC) SUBJECTIVE Chief Complaint Patient presents with Alcohol Problem Pt presents to the triage window stating he is an alcoholic and needs detox. Pt admits to drinking more than a 12 pack per day. States his las drink was 1 hour ago Last 4 CIWA scores per RN assessments 1 - 3 - 7 - 3 Interim History Worried about his car at the [employer] - he was working there prior to most recent relapse, apparently now lost his job Minimal withdrawal symptoms at this point on my eval, did have CIWA of 7 overnight No clear plan for sobriety Review of Systems Review of Systems Constitutional: Positive for malaise/fatigue. Neurological: Positive for tremors. Psychiatric/Behavioral: The patient is nervous/anxious. All other systems reviewed and are negative. OBJECTIVE Vitals Vitals: 08/31/24 1745 08/31/24 2310 09/01/24 0553 09/01/24 1137 BP: 130/84 136/90 112/66 121/81 Pulse: 87 86 62 86 Resp: Temp: 37.1 ?C (98.8 ?F) 37.1 ?C (98.7 ?F) 36.3 ?C (97.3 ?F) 37.3 ?C (99.1 ?F) TempSrc: Temporal Temporal Temporal Temporal SpO2: 99% 95% 98% Weight: Height: Physical Exam Vitals and nursing note reviewed. Constitutional: General: He is not in acute distress. Appearance: Normal appearance. He is not ill-appearing. HENT: Head: Normocephalic and atraumatic. Mouth/Throat: Mouth: Mucous membranes are moist. Eyes: Extraocular Movements: Extraocular movements intact. Cardiovascular: Rate and Rhythm: Normal rate and regular rhythm. Pulmonary: Effort: Pulmonary effort is normal. Breath sounds: Normal breath sounds. Abdominal: General: Abdomen is flat. Musculoskeletal: General: Normal range of motion. Neurological: Mental Status: He is alert and oriented to person, place, and time. Motor: No tremor. Psychiatric: Attention and Perception: Attention and perception normal. He does not perceive auditory or visual hallucinations. Mood and Affect: Mood is anxious. Speech: Speech normal. Behavior: Behavior normal. Behavior is cooperative. Thought Content: Thought content normal. Thought content is not paranoid or delusional. Thought content does not include suicidal ideation. Thought content does not include suicidal plan. Medications Home Meds Current Outpatient Medications Medication Instructions nicotine polacrilex (COMMIT) 4 mg, Mouth/Throat, Every 2 hour PRN Scheduled Inpatient Meds Scheduled Meds[1] PRN Inpatient Meds PRN Meds[2] Continuous Inpatient Infusions Continuous Meds[3] Recent Imaging ECG 12 lead Result Date: 08/29/2024 Sinus tachycardia No prior EKG available Electronically Signed On 08-29-2024 13:26:20 EDT by Cedrick Cuadra Labs CBC: Recent Labs 08/29/24 1353 WBC 6.5 HGB 15.3 PLT 365 MCV 92.7 RDW 14.6 BMP: Recent Labs 08/29/24 1353 NA 138 K 3.5 CL 104 CO2 20* BUN 7* CREATININE 0.71* CALCIUM 8.5 Liver Profile: Recent Labs 08/29/24 1353 AST 58* ALT 38 BILITOT 0.4 ALKPHOS 83 PROT 7.2 Glucose: Recent Labs 08/29/24 1353 GLUCOSE 92 Lactic Acid: No lab exists for component: LACTA Cardiac Injury Profile: No results for input(s): CKTOTAL, CKMB, TROPONINI in the last 72 hours. Last 24 Hours: No results found for this or any previous visit (from the past 24 hours). ASSESSMENT & PLAN Severe alcohol use disorder Cigarette smoker Counseled patient on biopsychosocial consequences of substance use. Encouraged professional chemical dependency treatment. Encouraged 12 step meeting attendance. Follow up plan for addiction management discussed with patient: No clear plan for sobriety. Will speak to INTER COM SERVICER today about options. Alcohol withdrawal - minimal Nicotine withdrawal Last use of alcohol was on 08/29/24. Phenobarbital taper to manage alcohol withdrawal symptoms. Changing to 32 mg q 6 hours PRN ONLY for CIWA > 6 for today. Discontinuing PRN ativan. Gabapentin 300 mg TID as adjunct. Thiamine/folic acid. CIWA scores per unit protocol. PRN medications for withdrawal symptom management added. NRT Encouraged to participate in all unit activities. Disposition: Discharge anticipated in 1 days. This is pending: Resolution of withdrawal symptoms. Medical stabilization. Labs/tests/tasks to review: aftercare plans. Refinery Operator Reforming Unit to coordinate care with: none. I reviewed the patient's medical record, and reviewed test results. I educated and then counseled the patient on any substance use disorder or chemical dependency related issues. This included a face to face evaluation and physical examination, and coordinating care on a substance use (more content not included)... [facility] 09-01-2024 Nurse Note Pt denies suicidal and homicidal ideation. Pt denies visual hallucinations and auditory hallucinations. Pt denies delusions. Affect is mood-congruent and mood is euthymic. Overall cooperative. Pt is compliant with scheduled medication. He is social with peers. Patient encouraged to seek out staff with questions or concerns. Plan of care ongoing. [facility] 09-01-2024 Note [facility] Smoking Cessation Progress Note Smoking Cessation Intervention Session type: initial Session length: 20 minutes Smoking History: Started smoking in 20's, smokes 1 ppd. No vaping. Uses smokeless tobacco sometimes. Pack Years: 22.6 How important is it to the patient to quit? (0-not important, 10-extremely important): 5 How confident is the patient that they can quit? (0-not confident, 10-extremely confident): 0 Stage of Change: Pre-contemplation Fagerstrom Test for Nicotine Dependence Score: 6 Reasons to quit smoking identified: [x]Yes []No Triggers for smoking identified: [x]Yes []No Quit strategies for smoking identified: [x]Yes []No Nicotine withdrawal symptoms reviewed: [x]Yes []No Smoking urge distractions discussed: [x]Yes []No Request for nicotine withdrawal medication: []Yes [x]No If yes, provider notified: []Yes []No Ready to choose a quit date in the next 30 days: []Yes [x]No Additional Comments: Met with patient at bedside. He is pleasant and willing to discuss his smoking history and cessation with me. Smoking cessation education with contact information explained and given to patient. NRT gum ordered this admission. [facility] 09-01-2024 Group counseling note Department: [facility] Group Topic: Recreation Therapy Group Date: 08/31/2024 Start Time: 1605 End Time: 1658 Facilitators: Leonor Cochran Number of Participants: 10 Group Name: Recreation Therapy Treatment Modality: Recreation Therapy Purpose: enhance coping skills, reconnect to leisure, increase socialization Summary: Reconnect to Leisure: Patients were given the opportunity to engage in a healthy leisure pursuit. Group purpose is to support patients in reconnecting to the positive benefits of participation in leisure/recreation activities. Patients were offered support as needed. Discussion focused on the experience of participation. Name: Osvaldo Christy Date of : 1980 MR: [id number] Appearance: Good eye contact Affect: Appropriate Behavior: Pleasant Alertness: Alert Speech: Appropriate Level/Quality of Participation: engaged Interactions with others: supportivel, humor Interventions utilized were Building rapport and engagement Patient's Response to Intervention: Patient engaged in intervention pop culture trirya with demonstrated focus. Patient had good eye contact during interaction. Patient was observed engaging with peers and being able to laugh during the group. Patient supported in utilizing recreation to support wellness and recovery. Continue to encourage group participation as appropriate. Patients Problems: Patient Active Problem List Diagnosis Severe alcohol use disorder (HCC) Tobacco use disorder Overweight (BMI 25.0-29.9) Abdominal fullness in left upper quadrant Constipation by delayed colonic transit Hyperlipidemia Alcohol withdrawal with inpatient treatment, uncomplicated (HCC) T [facility] 09-01-2024 Nurse Note Pt medicated with vistaril for anxiety [facility] 08-31-2024 Nurse Note Pt alert and oriented, med compliant, pt denies SI/HI/AVH, NV&D. Pt out in group room watching TV and social with peers. Pt encouraged to update staff with any change in condition. Will monitor pt for safety. [facility] 08-31-2024 Nurse Note Bedside handoff given, pt in group room socializing with peers. [facility] 08-31-2024 Nurse Note Patient has been social for most of the day. Patient has attended the meetings and been in the day room with the other patients. Patient has voiced no concerns during this shift. Patient is steady on his feet and ambulating fine. Patient reports no nausea today. Patient has denied any SI/HI/AVD. [facility] 08-31-2024 Plan of care note Progressing toward goals [facility] 08-30-2024 Nurse Note Pt states he noticed some burning with urination this evening, he stated he was going to keep an eye on it and see if it continued or got worse encouraged to increase water intake, educated patient if it continued or got worse to notify nursing staff. [facility] 08-30-2024 Nurse Note Pt alert and oriented, med compliant, pt denies SI/HI/AVH, NV&D. Pt attended 1900 meeting, social with peers, states appetite has picked up and starting to feel better. Pt encouraged to update staff with any change in condition. Will monitor pt for safety. [facility] 08-30-2024 Nurse Note Bedside handoff complete, pt in meeting at this time. T [facility] 08-30-2024 Group counseling note Department: [facility] Group Topic: Leisure Skills Group Date: 08/30/2024 Start Time: 1500 End Time: 1550 Facilitators: Negra Callahan Number of Participants: 9 Group Name: Social Skills Treatment Modality: Leisure Development Purpose: enhance coping skills Summary: To expose patients to healthy leisure outlets. Name: Osvaldo Christy Date of : 1980 MR: [id number] Mental Status Exam: Appearance: Good eye contact Affect: Appropriate Behavior: Interactive Alertness: Alert Speech: Appropriate Cognition: Intact Thought Process: Goal-directed Thought Content: organized Level/Quality of Participation: engaged Interactions with others: appropriate Interventions utilized were Activity Therapy Patient's Response to Intervention: on-task; appropriate interactions & affect Progress Towards Goal(s): Goal(s) met Additional Comments: Staff will continue to encourage pt to attend AT sessions. Next Step: Continue with current services Patients Problems: Patient Active Problem List Diagnosis Alcohol use disorder Tobacco use disorder Overweight (BMI 25.0-29.9) Abdominal fullness in left upper quadrant Constipation by delayed colonic transit Hyperlipidemia Alcohol abuse with withdrawal (HCC) [facility] 08-30-2024 Nurse Note Patient is pleasant and cooperative, up steady, eating fairly well. Monitored for safety. [facility] 08-30-2024 History and physical note Images from the original note were not included. ADDICTION MEDICINE 4E DETOX UNIT H&P Patient: Osvaldo Christy Admit Date: 08/29/2024 Primary Care Physician: Reid Rankin MD HISTORY OF PRESENT ILLNESS Chief Complaint Patient presents with Alcohol Problem Pt presents to the triage window stating he is an alcoholic and needs detox. Pt admits to drinking more than a 12 pack per day. States his las drink was 1 hour ago Osvaldo Christy is a 44 y.o. year old male with a PMH of AUD that was admitted for alcohol detox. Osvaldo Christy states that he drinks 12-24 beers daily. He has a 20 year hx of alcohol abuse and has been to several inpatient rehabs. Denies hx of withdrawal seizures or Dts, hx of falls while intoxicated.Has hx of legal problems (DWI) 2/2 substance use. States he has often drank to the point of having no memories of occurrences, states current alcohol use is affecting several relationships with led him to present to [facility]. Reports current sx of restlessness, fatigue, lack of appetite. Considering inpatient rehab in terms of aftercare. On admission, a urine drug screen was negative, and a serum alcohol level was 251. SUBSTANCE USE HISTORY Current Substance Use Alcohol: As above. Amphetamines: denies. Benzos: denies. Cocaine: denies. Hallucinogens: denies. Marijuana: previously, no recent use. Nicotine: vapres. Opioids: denies. Treatment History Inpatient Rehab: [facility], [facility]. Chem Dep IOP: previously. Detoxifications: previously. 12 Step Meetings: previously. Medication Assisted Treatment: denies. Consequences [] IVDA. [x] Blackouts related to substance use. [] History of withdrawal seizures. [] History of delirium tremens. [] History of overdoses. [x] Legal consequences of substance use. Substance Use Disorder Criteria 2-3 = mild; 4-5 = moderate; 6 or >6 = severe substance use disorder [x] Taking substance in larger amounts and/or for longer than intended. [x] Wanting to cut down or quit but not being able to. [x] Spending a lot of time obtaining the substance. [x] Craving or a strong desire to use substance. [x] Repeatedly doesn't carry out major obligations due to substance use. [x] Using despite recurring social or interpersonal problems. [x] Reducing social, occupational, or recreational activities. [x] Recurrent use in physically hazardous situations. [x] Consistent use despite recurrent physical or psychological difficulties. [x] Tolerance (increased amounts to achieve intoxication or diminished effect). [x] Withdrawal syndrome or the substance is used to avoid withdrawal. REMAINING HISTORY Psychiatric History Current Psychiatrist: denies Current Medications: denies Diagnoses: denies Previous Medication Trials: denies Psychiatric Hospitalizations: denies Previous Suicide Attempts: denies Adverse Childhood Events: denies Past Medical History Medical History[1] Past Surgical History Surgical History[2] Family History Family History[3] Social Drivers of Health Tobacco Use: High Risk (08/16/2023) Patient History Smoking Tobacco Use: Every Day Smokeless Tobacco Use: Never Passive Exposure: Not on file Alcohol Use: Alcohol Misuse (08/29/2024) AUDIT-C Frequency of Alcohol Consumption: 4 or more times a week Average Number of Drinks: 10 or more Frequency of Binge Drinking: Daily or almost daily Financial Resource Strain: Medium Risk (08/29/2024) Overall Financial Resource Strain (CARDIA) Difficulty of Paying Living Expenses: Somewhat hard Food Insecurity: Food Insecurity Present (08/29/2024) Hunger Vital Sign Worried About Running Out of Food in the Last Year: Never true Ran Out of Food in the Last Year: Sometimes true Transportation Needs: No Transportation Needs (08/29/2024) PRAPARE - Transportation Lack of Transportation (Medical): No Lack of Transportation (Non-Medical): No Physical Activity: Inactive (08/29/2024) Exercise Vital Sign Days of Exercise per Week: 0 days Minutes of Exercise per Session: 0 min Stress: No Stress Concern Present (08/29/2024) [employer] - Occupational Stress Questionnaire Feeling of Stress : Only a little Social Connections: Moderately Integrated (08/29/2024) Social Connection and Isolation Panel [NHANES] Frequency of Communication with Friends and Family: Twice a week Frequency of Social Gatherings with Friends and Family: Three times a week Attends Temple Services: More than 4 times per year Active Member of Clubs or Organizations: Yes Attends Club or Organization Meetings: Never Marital Status: Never Intimate Partner Violence: Not At Risk (08/29/2024) Humiliation, Afraid, Rape, and Kick questionnaire Fear of Current or Ex-Partner: No Emotionally Abused: No Physically Abused: No Sexually Abused: No Depression: Mild depression (08/29/2024) PHQ-9 PHQ-9 Score: 8 Housing Stability: High Risk (08/29/2024) Housing Stability Vital Sign Unable to Pay for Housing in the Last Year: Yes Number of Times Moved in the Last Year: 1 Homeless in the Last Year: No Utilities: Not At Risk (08/29/2024) [facility] Utilities Threatened with loss of utilities: No Health Literacy: Not on file REVIEW OF SYSTEMS Review of Systems Constitutional: Positive for diaphoresis and malaise/fatigue. Negative for chills and night sweats. Eyes: Negative for visual disturbance. Cardiovascular: Negative for chest pain. Musculoskeletal: Negative for falls. Gastrointestinal: Negative for abdominal pain, nausea and vomiting. Neurological: Positive for tremors. Negative for headaches and light-headedness. Psychiatric/Behavioral: Negative for depression, hallucinations and suicidal ideas. The patient is nervous/anxious. EXAM Vitals Vitals: 08/29/24 1312 08/29/24 1442 08/29/24 1623 08/29/24 1640 BP: (!) 144/93 135/87 (!) 156/96 BP Location: Left arm Patient Position: Sitting Pulse: (!) 121 (!) 113 109 Resp: Temp: 37.3 C (99.1 F) TempSrc: Temporal SpO2: 97% 98% 97% Weight: 68 kg (150 lb) Height: 1.626 m (5' 4) Physical Exam IMAGING ECG 12 lead Result Date: 08/29/2024 Sinus tachycardia No prior EKG available Electronically Signed On 08-29-2024 13:26:20 EDT by Cedrick Cuadra LABS Recent Results (from the past 48 hours) ECG 12 lead Collection Time: 08/29/24 1:21 PM Result Value Ref Range Heart Rate 129 bpm QRSD Interval 87 ms QT Interval 297 ms QTC Interval 436 ms P [place] 76 degrees QRS [place] 51 degrees T Wave [place] 41 degrees [place] Interval 115 ms Drug screen panel, emergency Collection Time: 08/29/24 1:35 PM Result Value Ref Range AMPHETAMINE SCREEN Negative BARBITURATES SCREEN Negative BENZODIAZEPINE SCREEN Negative COCAINE METAB. SCREEN Negative METHADONE SCREEN Negative OPIATES SCREEN Negative OXYCODONE SCREEN Negative PHENCYCLIDINE SCREEN Negative FENTANYL SCREEN, UR QUAL Negative CBC auto differential Collection Time: 08/29/24 1:53 PM Result Value Ref Range Auto WBC 6.5 3.6 - 10.7 10*3/uL RBC 4.77 4.40 - 5.90 10*6/uL Hemoglobin 15.3 13.0 - 18.0 g/dL Hematocrit 44.2 40.0 - 52.0 % MCV 92.7 77.0 - 99.0 fL MCH 32.1 26.0 - 34.0 pg MCHC 34.6 30.5 - 36.0 % RDW 14.6 11.5 - 15.0 % Platelets 365 140 - 440 10*3/uL MPV 8.9 (L) 9.0 - 12.7 fL nRBC 0.0 0.0 - 2.0 /100 WBCs Neutrophils Relative 52.9 38.0 - 82.0 % Lymphocytes Relative 32.3 15.0 - 45.0 % Monocytes Relative 8.7 5.0 - 13.0 % Eosinophils Relative 3.8 0.0 - 6.0 % Basophils Relative 2.0 0.0 - 2.0 % Immature Grans % 0.3 0.0 - 2.0 % Neutrophils Absolute 3.5 1.8 - 7.5 10*3/uL Lymphocytes Absolute 2.1 1.0 - 4.3 10*3/uL Monocytes Absolute 0.6 0.0 - 0.9 10*3/uL Eosinophils Absolute 0.3 0.0 - 0.5 10*3/uL Basophils Absolute 0.1 0.0 - 0.2 10*3/uL Immature Grans Absolute 0.0 <0.1 10*3/uL Comprehensive metabolic panel Collection Time: 08/29/24 1:53 PM Result Value Ref Range SODIUM 138 136 - 145 mmol/L POTASSIUM 3.5 3.5 - 5.1 mmol/L CHLORIDE 104 98 - 107 mmol/L CARBON DIOXIDE 20 (L) 22 - 29 mmol/L ANION GAP 14 (H) 3 - 13 mmol/L UREA NITROGEN 7 (L) 8 - 21 mg/dL CREATININE 0.71 (L) 0.72 - 1.25 mg/dL GLUCOSE 92 74 - 100 mg/dL CALCIUM 8.5 8.4 - 10.2 mg/dL AST (SGOT) 58 (H) <34 U/L ALT 38 <40 U/L ALKALINE PHOSPHATASE 83 40 - 150 U/L ALBUMIN 4.3 3.5 - 5.0 g/dL BILIRUBIN, TOTAL 0.4 <1.2 mg/dL TOTAL PROTEIN 7.2 6.4 - 8.3 g/dL eGFR >90.0 >60.0 mL/min/1.73m*2 Ethanol Collection Time: 08/29/24 1:53 PM Result Value Ref Range ETHANOL IN SER/PLAS 251 (H) <10 mg/dL SARS-CoV-2 Antigen Collection Time: 08/29/24 1:54 PM Specimen: Nose; Swab Result Value Ref Range SARS-CoV-2 Antigen Negative Negative MEDICATIONS Home Meds Current Outpatient Medications Medication Instructions nicotine polacrilex (COMMIT) 4 mg, Mouth/Throat, Every 2 hour PRN Scheduled Inpatient Meds Scheduled Meds[4] PRN Inpatient Meds PRN Meds[5] Continuous Inpatient Infusions Continuous Meds[6] ASSESSMENT & PLAN Alcohol use disorder Counseled patient on biopsychosocial consequences of substance use. Encouraged professional chemical dependency treatment. Encouraged 12 step meeting attendance. Follow up plans for addiction management discussed with patient: Considering residential rehab. Alcohol withdrawal Last use of alcohol was on 08/30. PNB taper to manage withdrawal symptoms. 64 q 4 hours for today. CIWA scores per unit protocol. PRN medications for withdrawal symptom management added. Encouraged to participate in all unit activities. NRT ordered Disposition: Discharge anticipated in 3-5 days. This is pending: Resolution of withdrawal symptoms. Medical stabilization. Labs/tests/tasks to review: aftercare. Consultants to coordinate care with: none. This patient was staffed with Dr. Montano. Vanda Sheth MD electronically signed this at 11:59 PM [1] Past Medical History: Diagnosis Date Alcohol use disorder 07/27/2023 Overweight (BMI 25.0-29.9) Tobacco use disorder 07/27/2023 [2] No past surgical history on file. [3] No family history on file. [4] folic acid, 1 mg, Oral, Daily gabapentin, 300 mg, Oral, q8h nicotine, 1 patch, TransDERmal, Once PHENobarbital, 97.2 mg, Oral, Q4H Followed by [START ON 08/30/2024] PHENobarbital, 64.8 mg, Oral, Q4H Followed by [START ON 08/31/2024] PHENobarbital, 32.4 mg, Oral, Q4H Followed by [START ON 09/01/2024] PHENobarbital, 16.2 mg, Oral, Q4H thiamine, 100 mg, Oral, TID traZODone, 100 mg, Oral, Nightly [5] PRN medications: dicyclomine, hydrOXYzine pamoate, loperamide, ondansetron, senna-docusate sodium [6] Cosigned by Jayne Montano MD at 09/02/2024 10:07 AM EDT Associated attestation - Jayne Montano MD - 09/02/2024 10:07 AM EDT I saw and evaluated the patient and participated in the dial portions of the service. I reviewed the patient's medical record and test results. I personally spent a total 75 minutes in counseling and discussion with the patient and coordination of care. This included a face to face evaluation, physical examination and documenting clinical information on the day of visit. I have reviewed the [place]'s note. I agree with the Fellow s findings and plan. [facility] 08-30-2024 History and physical note Images from the original note were not included. ADDICTION MEDICINE DETOX UNIT H&P Patient: Osvaldo Christy Admit Date: 08/29/2024 Primary Care Physician: Reid Rankin MD HISTORY OF PRESENT ILLNESS Chief Complaint Patient presents with Alcohol Problem Pt presents to the triage window stating he is an alcoholic and needs detox. Pt admits to drinking more than a 12 pack per day. States his las drink was 1 hour ago Osvaldo Christy is a 44 y.o. year old male with a PMH of AUD that was admitted for alcohol detox. Osvaldo Christy states that he drinks 12-24 beers daily. He has a 20 year hx of alcohol abuse and has been to several inpatient rehabs. Denies hx of withdrawal seizures or Dts, hx of falls while intoxicated.Has hx of legal problems (DWI) 2/2 substance use. States he has often drank to the point of having no memories of occurrences, states current alcohol use is affecting several relationships with led him to present to [facility]. Reports current sx of restlessness, fatigue, lack of appetite. Considering inpatient rehab in terms of aftercare. On admission, a urine drug screen was negative, and a serum alcohol level was 251. SUBSTANCE USE HISTORY Current Substance Use Alcohol: As above. Amphetamines: denies. Benzos: denies. Cocaine: denies. Hallucinogens: denies. Marijuana: previously, no recent use. Nicotine: vapres. Opioids: denies. Treatment History Inpatient Rehab: [facility], [facility]. Chem Dep IOP: previously. Detoxifications: previously. 12 Step Meetings: previously. Medication Assisted Treatment: denies. Consequences [] IVDA. [x] Blackouts related to substance use. [] History of withdrawal seizures. [] History of delirium tremens. [] History of overdoses. [x] Legal consequences of substance use. Substance Use Disorder Criteria 2-3 = mild; 4-5 = moderate; 6 or >6 = severe substance use disorder [x] Taking substance in larger amounts and/or for longer than intended. [x] Wanting to cut down or quit but not being able to. [x] Spending a lot of time obtaining the substance. [x] Craving or a strong desire to use substance. [x] Repeatedly doesn't carry out major obligations due to substance use. [x] Using despite recurring social or interpersonal problems. [x] Reducing social, occupational, or recreational activities. [x] Recurrent use in physically hazardous situations. [x] Consistent use despite recurrent physical or psychological difficulties. [x] Tolerance (increased amounts to achieve intoxication or diminished effect). [x] Withdrawal syndrome or the substance is used to avoid withdrawal. REMAINING HISTORY Psychiatric History Current Psychiatrist: denies Current Medications: denies Diagnoses: denies Previous Medication Trials: denies Psychiatric Hospitalizations: denies Previous Suicide Attempts: denies Adverse Childhood Events: denies Past Medical History Medical History[1] Past Surgical History Surgical History[2] Family History Family History[3] Social Drivers of Health Tobacco Use: High Risk (08/16/2023) Patient History Smoking Tobacco Use: Every Day Smokeless Tobacco Use: Never Passive Exposure: Not on file Alcohol Use: Alcohol Misuse (08/29/2024) AUDIT-C Frequency of Alcohol Consumption: 4 or more times a week Average Number of Drinks: 10 or more Frequency of Binge Drinking: Daily or almost daily Financial Resource Strain: Medium Risk (08/29/2024) Overall Financial Resource Strain (CARDIA) Difficulty of Paying Living Expenses: Somewhat hard Food Insecurity: Food Insecurity Present (08/29/2024) Hunger Vital Sign Worried About Running Out of Food in the Last Year: Never true Ran Out of Food in the Last Year: Sometimes true Transportation Needs: No Transportation Needs (08/29/2024) PRAPARE - Transportation Lack of Transportation (Medical): No Lack of Transportation (Non-Medical): No Physical Activity: Inactive (08/29/2024) Exercise Vital Sign Days of Exercise per Week: 0 days Minutes of Exercise per Session: 0 min Stress: No Stress Concern Present (08/29/2024) [employer] - Occupational Stress Questionnaire Feeling of Stress : Only a little Social Connections: Moderately Integrated (08/29/2024) Social Connection and Isolation Panel [NHANES] Frequency of Communication with Friends and Family: Twice a week Frequency of Social Gatherings with Friends and Family: Three times a week Attends Temple Services: More than 4 times per year Active Member of Clubs or Organizations: Yes Attends Club or Organization Meetings: Never Marital Status: Never Intimate Partner Violence: Not At Risk (08/29/2024) Humiliation, Afraid, Rape, and Kick questionnaire Fear of Current or Ex-Partner: No Emotionally Abused: No Physically Abused: No Sexually Abused: No Depression: Mild depression (08/29/2024) PHQ-9 PHQ-9 Score: 8 Housing Stability: High Risk (08/29/2024) Housing Stability Vital Sign Unable to Pay for Housing in the Last Year: Yes Number of Times Moved in the Last Year: 1 Homeless in the Last Year: No Utilities: Not At Risk (08/29/2024) [facility] Utilities Threatened with loss of utilities: No Health Literacy: Not on file REVIEW OF SYSTEMS Review of Systems Constitutional: Positive for diaphoresis and malaise/fatigue. Negative for chills and night sweats. Eyes: Negative for visual disturbance. Cardiovascular: Negative for chest pain. Musculoskeletal: Negative for falls. Gastrointestinal: Negative for abdominal pain, nausea and vomiting. Neurological: Positive for tremors. Negative for headaches and light-headedness. Psychiatric/Behavioral: Negative for depression, hallucinations and suicidal ideas. The patient is nervous/anxious. EXAM Vitals Vitals: 08/29/24 1312 08/29/24 1442 08/29/24 1623 08/29/24 1640 BP: (!) 144/93 135/87 (!) 156/96 BP Location: Left arm Patient Position: Sitting Pulse: (!) 121 (!) 113 109 Resp: Temp: 37.3 C (99.1 F) TempSrc: Temporal SpO2: 97% 98% 97% Weight: 68 kg (150 lb) Height: 1.626 m (5' 4) Physical Exam IMAGING ECG 12 lead Result Date: 08/29/2024 Sinus tachycardia No prior EKG available Electronically Signed On 08-29-2024 13:26:20 EDT by Cedrick Cuadra [facility] Recent Results (from the past 48 hours) ECG 12 lead Collection Time: 08/29/24 1:21 PM Result Value Ref Range Heart Rate 129 bpm QRSD Interval 87 ms QT Interval 297 ms QTC Interval 436 ms P [place] 76 degrees QRS [place] 51 degrees T Wave [place] 41 degrees [place] Interval 115 ms Drug screen panel, emergency Collection Time: 08/29/24 1:35 PM Result Value Ref Range AMPHETAMINE SCREEN Negative BARBITURATES SCREEN Negative BENZODIAZEPINE SCREEN Negative COCAINE METAB. SCREEN Negative METHADONE SCREEN Negative OPIATES SCREEN Negative OXYCODONE SCREEN Negative PHENCYCLIDINE SCREEN Negative FENTANYL SCREEN, UR QUAL Negative CBC auto differential Collection Time: 08/29/24 1:53 PM Result Value Ref Range Auto WBC 6.5 3.6 - 10.7 10*3/uL RBC 4.77 4.40 - 5.90 10*6/uL Hemoglobin 15.3 13.0 - 18.0 g/dL Hematocrit 44.2 40.0 - 52.0 % MCV 92.7 77.0 - 99.0 fL MCH 32.1 26.0 - 34.0 pg MCHC 34.6 30.5 - 36.0 % RDW 14.6 11.5 - 15.0 % Platelets 365 140 - 440 10*3/uL MPV 8.9 (L) 9.0 - 12.7 fL nRBC 0.0 0.0 - 2.0 /100 WBCs Neutrophils Relative 52.9 38.0 - 82.0 % Lymphocytes Relative 32.3 15.0 - 45.0 % Monocytes Relative 8.7 5.0 - 13.0 % Eosinophils Relative 3.8 0.0 - 6.0 % Basophils Relative 2.0 0.0 - 2.0 % Immature Grans % 0.3 0.0 - 2.0 % Neutrophils Absolute 3.5 1.8 - 7.5 10*3/uL Lymphocytes Absolute 2.1 1.0 - 4.3 10*3/uL Monocytes Absolute 0.6 0.0 - 0.9 10*3/uL Eosinophils Absolute 0.3 0.0 - 0.5 10*3/uL Basophils Absolute 0.1 0.0 - 0.2 10*3/uL Immature Grans Absolute 0.0 <0.1 10*3/uL Comprehensive metabolic panel Collection Time: 08/29/24 1:53 PM Result Value Ref Range SODIUM 138 136 - 145 mmol/L POTASSIUM 3.5 3.5 - 5.1 mmol/L CHLORIDE 104 98 - 107 mmol/L CARBON DIOXIDE 20 (L) 22 - 29 mmol/L ANION GAP 14 (H) 3 - 13 mmol/L UREA NITROGEN 7 (L) 8 - 21 mg/dL CREATININE 0.71 (L) 0.72 - 1.25 mg/dL GLUCOSE 92 74 - 100 mg/dL CALCIUM 8.5 8.4 - 10.2 mg/dL AST (SGOT) 58 (H) <34 U/L ALT 38 <40 U/L ALKALINE PHOSPHATASE 83 40 - 150 U/L ALBUMIN 4.3 3.5 - 5.0 g/dL BILIRUBIN, TOTAL 0.4 <1.2 mg/dL TOTAL PROTEIN 7.2 6.4 - 8.3 g/dL eGFR >90.0 >60.0 mL/min/1.73m*2 Ethanol Collection Time: 08/29/24 1:53 PM Result Value Ref Range ETHANOL IN SER/PLAS 251 (H) <10 mg/dL SARS-CoV-2 Antigen Collection Time: 08/29/24 1:54 PM Specimen: Nose; Swab Result Value Ref Range SARS-CoV-2 Antigen Negative Negative MEDICATIONS Home Meds Current Outpatient Medications Medication Instructions nicotine polacrilex (COMMIT) 4 mg, Mouth/Throat, Every 2 hour PRN Scheduled Inpatient Meds Scheduled Meds[4] PRN Inpatient Meds PRN Meds[5] Continuous Inpatient Infusions Continuous Meds[6] ASSESSMENT & PLAN Alcohol use disorder Counseled patient on biopsychosocial consequences of substance use. Encouraged professional chemical dependency treatment. Encouraged 12 step meeting attendance. Follow up plans for addiction management discussed with patient: Considering residential rehab. Alcohol withdrawal Last use of alcohol was on 08/30. PNB taper to manage withdrawal symptoms. 64 q 4 hours for today. CIWA scores per unit protocol. PRN medications for withdrawal symptom management added. Encouraged to participate in all unit activities. NRT ordered Disposition: Discharge anticipated in 3-5 days. This is pending: Resolution of withdrawal symptoms. Medical stabilization. Labs/tests/tasks to review: aftercare. Consultants to coordinate care with: none. This patient was staffed with Dr. Montano. Vanda Sheth MD electronically signed this at 11:59 PM [1] Past Medical History: Diagnosis Date Alcohol use disorder 07/27/2023 Overweight (BMI 25.0-29.9) Tobacco use disorder 07/27/2023 [2] No past surgical history on file. [3] No family history on file. [4] folic acid, 1 mg, Oral, Daily gabapentin, 300 mg, Oral, q8h nicotine, 1 patch, TransDERmal, Once PHENobarbital, 97.2 mg, Oral, Q4H Followed by [START ON 08/30/2024] PHENobarbital, 64.8 mg, Oral, Q4H Followed by [START ON 08/31/2024] PHENobarbital, 32.4 mg, Oral, Q4H Followed by [START ON 09/01/2024] PHENobarbital, 16.2 mg, Oral, Q4H thiamine, 100 mg, Oral, TID traZODone, 100 mg, Oral, Nightly [5] PRN medications: dicyclomine, hydrOXYzine pamoate, loperamide, ondansetron, senna-docusate sodium [6] Cosigned by Jayne Montano MD at 09/02/2024 10:07 AM EDT Associated attestation - Jayne Montano MD - 09/02/2024 10:07 AM EDT I saw and evaluated the patient and participated in the dial portions of the service. I reviewed the patient's medical record and test results. I personally spent a total 75 minutes in counseling and discussion with the patient and coordination of care. This included a face to face evaluation, physical examination and documenting clinical information on the day of visit. I have reviewed the [place]'s note. I agree with the Fellow s findings and plan. documented in this encounter [facility] 08-30-2024 Note Attestation signed by Jayne Montano MD at 09/02/2024 10:07 AM I saw and evaluated the patient and participated in the dial portions of the service. I reviewed the patient's medical record and test results. I personally spent a total 75 minutes in counseling and discussion with the patient and coordination of care. This included a face to face evaluation, physical examination and documenting clinical information on the day of visit. I have reviewed the [place]'s note. I agree with the Fellow?s findings and plan. ADDICTION MEDICINE 4E DETOX UNIT H&P Patient: Osvaldo Christy Admit Date: 08/29/2024 Primary Care Physician: Reid Rankin MD __ HISTORY OF PRESENT ILLNESS Chief Complaint Patient presents with Alcohol Problem Pt presents to the triage window stating he is an alcoholic and needs detox. Pt admits to drinking more than a 12 pack per day. States his las drink was 1 hour ago Osvaldo Christy is a 44 y.o. year old male with a PMH of AUD that was admitted for alcohol detox. Osvaldo Christy states that he drinks 12-24 beers daily. He has a 20 year hx of alcohol abuse and has been to several inpatient rehabs. Denies hx of withdrawal seizures or Dts, hx of falls while intoxicated.Has hx of legal problems (DWI) 2/2 substance use. States he has often drank to the point of having no memories of occurrences, states current alcohol use is affecting several relationships with led him to present to [facility]. Reports current sx of restlessness, fatigue, lack of appetite. Considering inpatient rehab in terms of aftercare. On admission, a urine drug screen was negative, and a serum alcohol level was 251. SUBSTANCE USE HISTORY Current Substance Use Alcohol: As above. Amphetamines: denies. Benzos: denies. Cocaine: denies. Hallucinogens: denies. Marijuana: previously, no recent use. Nicotine: vapres. Opioids: denies. Treatment History Inpatient Rehab: [facility], [facility]. Chem Dep IOP: previously. Detoxifications: previously. 12 Step Meetings: previously. Medication Assisted Treatment: denies. Consequences [] IVDA. [x] Blackouts related to substance use. [] History of withdrawal seizures. [] History of delirium tremens. [] History of overdoses. [x] Legal consequences of substance use. Substance Use Disorder Criteria 2-3 = mild; 4-5 = moderate; 6 or >6 = severe substance use disorder [x] Taking substance in larger amounts and/or for longer than intended. [x] Wanting to cut down or quit but not being able to. [x] Spending a lot of time obtaining the substance. [x] Craving or a strong desire to use substance. [x] Repeatedly doesn't carry out major obligations due to substance use. [x] Using despite recurring social or interpersonal problems. [x] Reducing social, occupational, or recreational activities. [x] Recurrent use in physically hazardous situations. [x] Consistent use despite recurrent physical or psychological difficulties. [x] Tolerance (increased amounts to achieve intoxication or diminished effect). [x] Withdrawal syndrome or the substance is used to avoid withdrawal. REMAINING HISTORY Psychiatric History Current Psychiatrist: denies Current Medications: denies Diagnoses: denies Previous Medication Trials: denies Psychiatric Hospitalizations: denies Previous Suicide Attempts: denies Adverse Childhood Events: denies Past Medical History Medical History[1] Past Surgical History Surgical History[2] Family History Family History[3] Social Drivers of Health Tobacco Use: High Risk (08/16/2023) Patient History Smoking Tobacco Use: Every Day Smokeless Tobacco Use: Never Passive Exposure: Not on file Alcohol Use: Alcohol Misuse (08/29/2024) AUDIT-C Frequency of Alcohol Consumption: 4 or more times a week Average Number of Drinks: 10 or more Frequency of Binge Drinking: Daily or almost daily Financial Resource Strain: Medium Risk (08/29/2024) Overall Financial Resource Strain (CARDIA) Difficulty of Paying Living Expenses: Somewhat hard Food Insecurity: Food Insecurity Present (08/29/2024) Hunger Vital Sign Worried About Running Out of Food in the Last Year: Never true Ran Out of Food in the Last Year: Sometimes true Transportation Needs: No Transportation Needs (08/29/2024) PRAPARE - Transportation Lack of Transportation (Medical): No Lack of Transportation (Non-Medical): No Physical Activity: Inactive (08/29/2024) Exercise Vital Sign Days of Exercise per Week: 0 days Minutes of Exercise per Session: 0 min Stress: No Stress Concern Present (08/29/2024) [employer] - Occupational Stress Questionnaire Feeling of Stress : Only a l (more content not included)... [facility] 08-30-2024 Nurse Note Patient seen resting in bed at time of interview-pleasant upon initial approach. Presented with an appropriate affect. Fair eye contact maintained throughout interaction. Reports he feels like absolute shit. Receptive to words of encouragement/emotional support. Patient up @christophe with a steady gait. Reports poor appetite and sleep-adequate rest/fluids and nutrition continually encouraged. Encouragement with ADLs provided-patient instructed to call on staff if hygiene products are needed. Minimally interactive-patient is mostly withdrawn to his room/himself this morning. Group meeting/therapy attendance continually encouraged. Cooperative with nursing care and assessment. Medication compliant. CIWA monitored per unit policy. 20 gauge IV in R forearm patent-dressing is clean, dry and intact-no c/o pain or s/s of infection noted at site. Denies all s/s of withdraw. Denies any current pain. Denies HI, but endorsed passive SI-admits to having thoughts of wanting to harm himself at times-reports these thoughts come and go. Patient went on to say, I am just sick of feeling this way, and it's no one's fault but my own. Emotional support provided. No clear plan voiced-patient able to contract for safety while on unit-agreeable to alert staff if/when thoughts occur to ensure safety. No delusions voiced/noted. No auditory or tactile hallucinations voiced/noted, but patient admitted to seeing [place] flashbacks. When asked to elaborate, patient stated I don't know, I wasn't in the service, it's kind of like PTSD I guess. Patient agreeable to alert staff if/when visuals occur to ensure safety is maintained. No s/s of physical concerns or visible distress noted. Education on appropriate call light usage reinforced. Plan of care ongoing. T [facility] 08-30-2024 Plan of care note Problem: Sensory Perceptual Alteration as Evidenced by Goal: Participates in unit activities Outcome: Progressing Problem: Sensory Perceptual Alteration as Evidenced by Goal: Notifies staff when experiencing hallucinations/delusions Outcome: Progressing Problem: Potential for Compromised Skin Integrity Goal: Nutritional status is improving Outcome: Progressing T [facility] 08-30-2024 Note Problem: Safety - Ad ult Goal: Free from fall injury Outcome: Progressing Problem: Ineffective Coping Goal: Identifies healthy coping skills Outcome: Progressing Problem: Anxiety Goal: Patient/family understands admission protocols Outcome: Progressing Problem: Anxiety Goal: Verbalizes ways to manage anxiety Outcome: Progressing [facility] 08-30-2024 Plan of care note Problem: Safety - Adult Goal: Free from fall injury Outcome: Progressing Problem: Ineffective Coping Goal: Identifies healthy coping skills Outcome: Progressing Problem: Anxiety Goal: Patient/family understands admission protocols Outcome: Progressing Problem: Anxiety Goal: Verbalizes ways to manage anxiety Outcome: Progressing T [facility] 08-29-2024 Nurse Note Pt is observed standing in the hallway vomiting. Zofran offered, pt refused. Pt refused his bedtime meds at this time. Pt is encouraged to seek staff assistance with any needs. Pt verbalizes understanding. Pt refused his bedtime meds at the beginning of the shift. Phenobarb, vitamin B1 and Trazone. Attempts made X3. Education provided. Pt verbalizes understanding. [facility] 08-29-2024 Plan of care note Patient understanding of care plan and goals [facility] 08-29-2024 Nurse Note Patient arrived to the unit escorted by trasport and protective services. Patient arrived via wheelchair and patient able to ambulate to the bed without difficulty. Patient assessed and questions asked. Patient cooperative during assessment. Patient has an IV in right forearm. Patient as denied any SI/HI/AVD at this time. [facility] 08-29-2024 Emergency department Note Pt transported to new room with officer. NAD noted all belongings with officer in transport. Pt awake and alert speaking complete sentences. [facility] 08-29-2024 Emergency department Note Pt transported to new room with officer. NAD noted all belongings with officer in transport. Pt awake and alert speaking complete sentences. Report called to Lydia SYKES on 4E. Emergency Department Encounter [facility] EMERGENCY DEPT Patient: Osvaldo Christy : 1980 Date of Evaluation: 08/29/2024 ED Supervising Physician: Roberta Almendarez MD I independently examined and evaluated Osvaldo Christy. THIS IS MY SUPERVISORY AND SHARED VISIT NOTE: I personally saw the patient and made/approved the management plan and take responsibility for the patient management. In brief, Osvaldo Christy is a 44 y.o. male that presents to the emergency department requesting assistance with alcohol detox. The patient states that he drinks 24 beers per day and last drank roughly an hour prior to arrival. He denies any hallucinations but states that he has in the past. He denies any suicidal ideation. He did states that he did not drive, someone dropped him off here. Focused exam: Patient obviously intoxicated but ambulating without difficulty. Tachycardic. Brief ED course/MDM: EMERGENCY DEPARTMENT COURSE and DIFFERENTIAL DIAGNOSIS/MDM: Vitals: Vitals: 08/29/24 1309 08/29/24 1312 BP: (!) 146/101 BP Location: Left arm Patient Position: Sitting Pulse: (!) 134 Resp: 18 Temp: 37 C (98.6 F) TempSrc: Temporal SpO2: 96% Weight: 68 kg (150 lb) Height: 1.626 m (5' 4) The patient presented with a chief complaint of requesting assistance with alcohol detox The differential diagnosis associated with this patient's presentation includes but is not limited to: Presentation concerning for alcohol abuse Our workup consisted of ordering/reviewing: CBC, CMP, drug screen, ethanol level, COVID antigen, EKG I reviewed external records from: PDMP demonstrating no controlled substance prescriptions Patient's care was significantly impacted by social determinants of health including Alcoholism ED Medications managed: Medications nicotine (Nicoderm, Step 1) 21 MG/24HR patch 1 patch (1 patch TransDERmal Medication Applied 08/29/24 1353) sodium chloride 0.9 % bolus 1,000 mL (1,000 mL IntraVENous New Bag 08/29/24 1354) CRITICAL CARE TIME None All diagnostic, treatment, and disposition decisions were made by myself in conjunction with the Resident or CARLO. I also supervised dial portions of any procedures performed by the Resident. For all further details of the patient's emergency department visit, please see their documentation. (Comment: Please note this report has been produced using speech recognition software and may contain errors related to that system including errors in grammar, punctuation, and spelling, as well as words and phrases that may be inappropriate. If there are any questions or concerns please feel free to contact the dictating provider for clarification.) Roberta Almendarez MD [facility] Rosalie Almendarez MD 08/29/24 1404 documented in this encounter [facility] 08-29-2024 Emergency department Note Report called to Lydia SYKES on 4E. [facility] 08-29-2024 Physician Emergency department Note Emergency Department Encounter [facility] EMERGENCY DEPT Patient: Osvaldo Christy : 1980 Date of Evaluation: 08/29/2024 ED Supervising Physician: Roberta Almendarez MD I independently examined and evaluated Osvaldo Christy. THIS IS MY SUPERVISORY AND SHARED VISIT NOTE: I personally saw the patient and made/approved the management plan and take responsibility for the patient management. In brief, Osvaldo Christy is a 44 y.o. male that presents to the emergency department requesting assistance with alcohol detox. The patient states that he drinks 24 beers per day and last drank roughly an hour prior to arrival. He denies any hallucinations but states that he has in the past. He denies any suicidal ideation. He did states that he did not drive, someone dropped him off here. Focused exam: Patient obviously intoxicated but ambulating without difficulty. Tachycardic. Brief ED course/MDM: EMERGENCY DEPARTMENT COURSE and DIFFERENTIAL DIAGNOSIS/MDM: Vitals: Vitals: 08/29/24 1309 08/29/24 1312 BP: (!) 146/101 BP Location: Left arm Patient Position: Sitting Pulse: (!) 134 Resp: 18 Temp: 37 C (98.6 F) TempSrc: Temporal SpO2: 96% Weight: 68 kg (150 lb) Height: 1.626 m (5' 4) The patient presented with a chief complaint of requesting assistance with alcohol detox The differential diagnosis associated with this patient's presentation includes but is not limited to: Presentation concerning for alcohol abuse Our workup consisted of ordering/reviewing: CBC, CMP, drug screen, ethanol level, COVID antigen, EKG I reviewed external records from: PDMP demonstrating no controlled substance prescriptions Patient's care was significantly impacted by social determinants of health including Alcoholism ED Medications managed: Medications nicotine (Nicoderm, Step 1) 21 MG/24HR patch 1 patch (1 patch TransDERmal Medication Applied 08/29/24 1358) sodium chloride 0.9 % bolus 1,000 mL (1,000 mL IntraVENous New Bag 08/29/24 1354) CRITICAL CARE TIME None All diagnostic, treatment, and disposition decisions were made by myself in conjunction with the Resident or CARLO. I also supervised dial portions of any procedures performed by the Resident. For all further details of the patient's emergency department visit, please see their documentation. (Comment: Please note this report has been produced using speech recognition software and may contain errors related to that system including errors in grammar, punctuation, and spelling, as well as words and phrases that may be inappropriate. If there are any questions or concerns please feel free to contact the dictating provider for clarification.) Roberta Almendarez MD [facility] Rosalie Almendarez MD 08/29/24 [id number] Work Phone: 08-16-2023 Evaluation + Plan note Associated Problem(s): Constipation by delayed colonic transit Subacute, uncontrolled. Unclear if related to abdominal fullness. No red flag sx. Recent normal abdominal ultrasound. Will trial Miralax at this time. Mat need CT A/P versus KUB in future should symptoms persist. Patient amenable to this plan. [facility] 08-16-2023 Miscellaneous Notes Associated Problem(s): Constipation by delayed colonic transit Subacute, uncontrolled. Unclear if related to abdominal fullness. No red flag sx. Recent normal abdominal ultrasound. Will trial Miralax at this time. Mat need CT A/P versus KUB in future should symptoms persist. Patient amenable to this plan. Associated Problem(s): Tobacco use disorder Chronic, improving. Patient cut down from 20 cigarettes daily to 10-15 cigarettes daily. Doing well with lozenges, declined need for refill. New goal is to be smoking 5/day by next follow up visit. Patient expresses understanding of this and is amenable to current plan of care. Patient questions were answered and patient was advised to call office or sent Kanmu message for any subsequent concerns regarding care. Associated Problem(s): Hyperlipidemia Chronic, uncontrolled. Moderate intensity statin recommended, however patient refused. Wanting to make lifestyle changes. Discussed lifestyle modifications. Recheck lipids around . The 10-year ASCVD risk score (Yvette TREVINO, et al., 2019) is: 6.6% Values used to calculate the score: Age: 43 years Sex: Male Is Non- : No Diabetic: No Tobacco smoker: Yes Systolic Blood Pressure: 117 mmHg Is BP treated: No HDL Cholesterol: 32 mg/dL Total Cholesterol: 203 mg/dL documented in this encounter [facility] 08-16-2023 Miscellaneous Notes Associated Problem(s): Constipation by delayed colonic transit Subacute, uncontrolled. Unclear if related to abdominal fullness. No red flag sx. Recent normal abdominal ultrasound. Will trial Miralax at this time. Mat need CT A/P versus KUB in future should symptoms persist. Patient amenable to this plan. Associated Problem(s): Tobacco use disorder Chronic, improving. Patient cut down from 20 cigarettes daily to 10-15 cigarettes daily. Doing well with lozenges, declined need for refill. New goal is to be smoking 5/day by next follow up visit. Patient expresses understanding of this and is amenable to current plan of care. Patient questions were answered and patient was advised to call office or sent MyChart message for any subsequent concerns regarding care. Associated Problem(s): Hyperlipidemia Chronic, uncontrolled. Moderate intensity statin recommended, however patient refused. Wanting to make lifestyle changes. Discussed lifestyle modifications. Recheck lipids around . The 10-year ASCVD risk score (Yvette TREVINO, et al., 2019) is: 6.6% Values used to calculate the score: Age: 43 years Sex: Male Is Non- : No Diabetic: No Tobacco smoker: Yes Systolic Blood Pressure: 117 mmHg Is BP treated: No HDL Cholesterol: 32 mg/dL Total Cholesterol: 203 mg/dL documented in this encounter [facility] 08-16-2023 Evaluation + Plan note Associated Problem(s): Tobacco use disorder Chronic, improving. Patient cut down from 20 cigarettes daily to 10-15 cigarettes daily. Doing well with lozenges, declined need for refill. New goal is to be smoking 5/day by next follow up visit. Patient expresses understanding of this and is amenable to current plan of care. Patient questions were answered and patient was advised to call office or sent HiConversiont message for any subsequent concerns regarding care. [facility] 08-16-2023 Evaluation + Plan note Associated Problem(s): Hyperlipidemia Chronic, uncontrolled. Moderate intensity statin recommended, however patient refused. Wanting to make lifestyle changes. Discussed lifestyle modifications. Recheck lipids around . The 10-year ASCVD risk score (Yvette TREVINO, et al., 2019) is: 6.6% Values used to calculate the score: Age: 43 years Sex: Male Is Non- : No Diabetic: No Tobacco smoker: Yes Systolic Blood Pressure: 117 mmHg Is BP treated: No HDL Cholesterol: 32 mg/dL Total Cholesterol: 203 mg/dL [facility] 08-16-2023 History of Presen t illness Narrative Images from the original note were not included. Prechart note: (the following data was documented before the visit began) Rooming: NA Possible agenda: abdominal pain, chronic, TUD f/up Provider notes: Normal abdominal ultrasound. CT? TUD with treatment for lozenges, declined patches/chantix. Lipids obtained at last visit, needs moderate intensity statin. Multidisciplinary team needs: ?[facility] Health Maintenance to be addressed today: NA Health Maintenance Due Topic Date Due Pneumococcal Vaccine: Pediatrics (0 to 5 Years) and At-Risk Patients (6 to 64 Years) (1 of 2 - PCV) Never done DTaP/Tdap/Td Vaccines (1 - Tdap) Never done Hepatitis B Vaccines (1 of 3 - 19+ 3-dose series) Never done COVID-19 Vaccine ( - ) Never done (end precharting)- [facility] [address] [facility] [id number] Dept: [phone] Dept Loc: [phone] Visit type: Established patient Reason for Visit: Follow-up Assessment/Plan 1. Tobacco use disorder Assessment & Plan: Chronic, improving. Patient cut down from 20 cigarettes daily to 10-15 cigarettes daily. Doing well with lozenges, declined need for refill. New goal is to be smoking 5/day by next follow up visit. Patient expresses understanding of this and is amenable to current plan of care. Patient questions were answered and patient was advised to call office or sent Dóndehart message for any subsequent concerns regarding care. 2. Constipation by delayed colonic transit Assessment & Plan: Subacute, uncontrolled. Unclear if related to abdominal fullness. No red flag sx. Recent normal abdominal ultrasound. Will trial Miralax at this time. Mat need CT A/P versus KUB in future should symptoms persist. Patient amenable to this plan. Orders: - polyethylene glycol, PEG, 3350 (Miralax) 17 g packet; Take 17 g by mouth daily for 12 days., Starting Princess 08/16/2023, Until 08/28/2023, Normal 3. Mixed hyperlipidemia Assessment & Plan: Chronic, uncontrolled. Moderate intensity statin recommended, however patient refused. Wanting to make lifestyle changes. Discussed lifestyle modifications. Recheck lipids around . The 10-year ASCVD risk score (Yvette TREVINO, et al., 2019) is: 6.6% Values used to calculate the score: Age: 43 years Sex: Male Is Non- : No Diabetic: No Tobacco smoker: Yes Systolic Blood Pressure: 117 mmHg Is BP treated: No HDL Cholesterol: 32 mg/dL Total Cholesterol: 203 mg/dL Health Maintenance Due Topic Pneumococcal Vaccine: Pediatrics (0 to 5 Years) and At-Risk Patients (6 to 64 Years) (1 of 2 - PCV) DTaP/Tdap/Td Vaccines (1 - Tdap) Hepatitis B Vaccines (1 of 3 - 19+ 3-dose series) COVID-19 Vaccine ( - 2022- season) Follow up in about 2 months (around 10/16/2023), or w pcp or green pod, for smoking cessation follow up. Subjective HPI HLD -Not interested in starting statin today -wants to work on stopping smoking -willing to recheck in 6 months Constipation -every once in a while -No blood in stool Smoking -Smoking less with lozenges -Was smoking 20 cigarettes daily, now 10-15 cigarettes -New goal is 5 cigarettes -Still has plenty of lozenges only using 2 a day Review of Systems Respiratory: Negative for shortness of breath. Cardiovascular: Negative for chest pain. Gastrointestinal: Positive for constipation. Negative for abdominal pain and diarrhea. Objective BP 117/71 (BP Location: Left arm, Patient Position: Sitting, BP Cuff Size: Adult) Pulse 58 Temp 36.4 C (97.6 F) (Temporal) Ht 5' 4 (1.626 m) Wt 154 lb 3.2 oz (69.9 kg) BMI 26.47 kg/m Physical Exam Vitals and nursing note reviewed. Constitutional: General: He is not in acute distress. Appearance: Normal appearance. HENT: Head: Normocephalic and atraumatic. Nose: Nose normal. Eyes: Conjunctiva/sclera: Conjunctivae normal. Cardiovascular: Rate and Rhythm: Normal rate. Pulses: Normal pulses. Pulmonary: Effort: Pulmonary effort is normal. No respiratory distress. Abdominal: General: Abdomen is flat. There is no distension. Skin: General: Skin is warm and dry. Neurological: Mental Status: He is alert. Gait: Gait normal. Psychiatric: Behavior: Behavior normal. Thought Content: Thought content normal. Outpatient Encounter Medications as of 08/16/2023 Medication Sig Dispense Refill nicotine polacrilex (Commit) 4 MG lozenge Dissolve 1 lozenge (4 mg) in the mouth every 2 hours as needed for smoking cessation. 100 lozenge 0 polyethylene glycol, PEG, 3350 (Miralax) 17 g packet Take 17 g by mouth daily for 12 days. 3 packet 3 thiamine (Vitamin B-1) 100 MG tablet Take 1 tablet (100 mg) by mouth daily. 30 tablet 11 No facility-administered encounter medications on file as of 08/16/2023. Reid Rankin MD 08/16/23 11:46 AM Please note: Portions of this note may have been completed with a voice recognition program, [email or web address]. Efforts were made to edit the dictations but occasionally words and phrases are mis-transcribed Visit reason: Follow Up Additional information: none Medications needing to be refilled: no Patient was able to ambulate safely to the examination room. Provider was not notified of possible fall risk. Enrober: Not Offered PHQ2: negative Suicidal ideation: absent Food insecurity screening: negative Dietitian Therapeutic used: no documented in this encounter [facility] 08-16-2023 History of Presen t illness Narrative Images from the original note were not included. Prechart note: (the following data was documented before the visit began) Rooming: NA Possible agenda: abdominal pain, chronic, TUD f/up Provider notes: Normal abdominal ultrasound. CT? TUD with treatment for lozenges, declined patches/chantix. Lipids obtained at last visit, needs moderate intensity statin. Multidisciplinary team needs: ?[facility] Health Maintenance to be addressed today: NA Health Maintenance Due Topic Date Due Pneumococcal Vaccine: Pediatrics (0 to 5 Years) and At-Risk Patients (6 to 64 Years) (1 of 2 - PCV) Never done DTaP/Tdap/Td Vaccines (1 - Tdap) Never done Hepatitis B Vaccines (1 of 3 - 19+ 3-dose series) Never done COVID-19 Vaccine ( - 2022-24 season) Never done (end precharting)- [facility] [address] [facility] [id number] Dept: [phone] Dept Loc: [phone] Visit type: Established patient Reason for Visit: Follow-up Assessment/Plan 1. Tobacco use disorder Assessment & Plan: Chronic, improving. Patient cut down from 20 cigarettes daily to 10-15 cigarettes daily. Doing well with lozenges, declined need for refill. New goal is to be smoking 5/day by next follow up visit. Patient expresses understanding of this and is amenable to current plan of care. Patient questions were answered and patient was advised to call office or sent Kanmu message for any subsequent concerns regarding care. 2. Constipation by delayed colonic transit Assessment & Plan: Subacute, uncontrolled. Unclear if related to abdominal fullness. No red flag sx. Recent normal abdominal ultrasound. Will trial Miralax at this time. Mat need CT A/P versus KUB in future should symptoms persist. Patient amenable to this plan. Orders: - polyethylene glycol, PEG, 3350 (Miralax) 17 g packet; Take 17 g by mouth daily for 12 days., Starting Princess 08/16/2023, Until 08/28/2023, Normal 3. Mixed hyperlipidemia Assessment & Plan: Chronic, uncontrolled. Moderate intensity statin recommended, however patient refused. Wanting to make lifestyle changes. Discussed lifestyle modifications. Recheck lipids around . The 10-year ASCVD risk score (Yvette DK, et al., 2019) is: 6.6% Values used to calculate the score: Age: 43 years Sex: Male Is Non- : No Diabetic: No Tobacco smoker: Yes Systolic Blood Pressure: 117 mmHg Is BP treated: No HDL Cholesterol: 32 mg/dL Total Cholesterol: 203 mg/dL Health Maintenance Due Topic Pneumococcal Vaccine: Pediatrics (0 to 5 Years) and At-Risk Patients (6 to 64 Years) (1 of 2 - PCV) DTaP/Tdap/Td Vaccines (1 - Tdap) Hepatitis B Vaccines (1 of 3 - 19+ 3-dose series) COVID-19 Vaccine (2022-24 season) Follow up in about 2 months (around 10/16/2023), or w pcp or green pod, for smoking cessation follow up. Subjective HPI HLD -Not interested in starting statin today -wants to work on stopping smoking -willing to recheck in 6 months Constipation -every once in a while -No blood in stool Smoking -Smoking less with lozenges -Was smoking 20 cigarettes daily, now 10-15 cigarettes -New goal is 5 cigarettes -Still has plenty of lozenges only using 2 a day Review of Systems Respiratory: Negative for shortness of breath. Cardiovascular: Negative for chest pain. Gastrointestinal: Positive for constipation. Negative for abdominal pain and diarrhea. Objective BP 117/71 (BP Location: Left arm, Patient Position: Sitting, BP Cuff Size: Adult) Pulse 58 Temp 36.4 C (97.6 F) (Temporal) Ht 5' 4 (1.626 m) Wt 154 lb 3.2 oz (69.9 kg) BMI 26.47 kg/m Physical Exam Vitals and nursing note reviewed. Constitutional: General: He is not in acute distress. Appearance: Normal appearance. HENT: Head: Normocephalic and atraumatic. Nose: Nose normal. Eyes: Conjunctiva/sclera: Conjunctivae normal. Cardiovascular: Rate and Rhythm: Normal rate. Pulses: Normal pulses. Pulmonary: Effort: Pulmonary effort is normal. No respiratory distress. Abdominal: General: Abdomen is flat. There is no distension. Skin: General: Skin is warm and dry. Neurological: Mental Status: He is alert. Gait: Gait normal. Psychiatric: Behavior: Behavior normal. Thought Content: Thought content normal. Outpatient Encounter Medications as of 08/16/2023 Medication Sig Dispense Refill nicotine polacrilex (Commit) 4 MG lozenge Dissolve 1 lozenge (4 mg) in the mouth every 2 hours as needed for smoking cessation. 100 lozenge 0 polyethylene glycol, PEG, 3350 (Miralax) 17 g packet Take 17 g by mouth daily for 12 days. 3 packet 3 thiamine (Vitamin B-1) 100 MG tablet Take 1 tablet (100 mg) by mouth daily. 30 tablet 11 No facility-administered encounter medications on file as of 08/16/2023. Reid Rankin MD 08/16/23 11:46 AM Please note: Portions of this note may have been completed with a voice recognition program, [email or web address]. Efforts were made to edit the dictations but occasionally words and phrases are mis-transcribed Visit reason: Follow Up Additional information: none Medications needing to be refilled: no Patient was able to ambulate safely to the examination room. Provider was not notified of possible fall risk. Enrober: Not Offered PHQ2: negative Suicidal ideation: absent Food insecurity screening: negative Dietitian Therapeutic used: no INDIRECT SUPERVISION- GE During or immediately after this visit, I discussed this case with the treating resident. The resident's note reflects the information we discussed, and I agree with the resident's assessment and treatment plan. Savana Swain MD documented in this encounter [facility] 07-27-2023 Evaluation + Plan note Associated Problem(s): Tobacco use disorder Chronic, uncontrolled. Patient currently smoking 1-1.5 packs daily for last 20 years. Patient declined Chantix due to concern for side effects. Patient not good candidate for Bupropion given seizure potential with hx of DT and WD from alcohol. Patient declines patch and is instead opting for lozenge treatment PRN. [facility] 07-27-2023 Miscellaneous Notes Associated Problem(s): Tobacco use disorder Chronic, uncontrolled. Patient currently smoking 1-1.5 packs daily for last 20 years. Patient declined Chantix due to concern for side effects. Patient not good candidate for Bupropion given seizure potential with hx of DT and WD from alcohol. Patient declines patch and is instead opting for lozenge treatment PRN. Associated Problem(s): Abdominal fullness in left upper quadrant Chronic, uncontrolled. Etiology remains unclear given it has been present for four years per patient. Will obtain US with potential to obtain CT A/P in future. Associated Problem(s): Alcohol use disorder Chronic, uncontrolled. Hx of DT and multiple hospitalizations of withdrawal per patient. Patient currently residing of [place] [facility], however inquiring about more terminal gauger sobriety options. Let with multidisciplinary team including [facility] and SW for resources and recommendations. Medically, will obtain CBC with folate and B12 to r/o pernicious anemia, and CMP for kidney and liver function. Thiamine supplement sent to pharmacy. documented in this encounter [facility] 07-27-2023 Evaluation + Plan note Associated Problem(s): Abdominal fullness in left upper quadrant Chronic, uncontrolled. Etiology remains unclear given it has been present for four years per patient. Will obtain US with potential to obtain CT A/P in future. [facility] 07-27-2023 Evaluation + Plan note Associated Problem(s): Alcohol use disorder Chronic, uncontrolled. Hx of DT and multiple hospitalizations of withdrawal per patient. Patient currently residing of [place] [facility], however inquiring about more residential sobriety options. Let with multidisciplinary team including [facility] and SW for resources and recommendations. Medically, will obtain CBC with folate and B12 to r/o pernicious anemia, and CMP for kidney and liver function. Thiamine supplement sent to pharmacy. [facility] 07-27-2023 History of Presen t illness Narrative Images from the original note were not included. Prechart note: (the following data was documented before the visit began) Rooming: [id number] Possible agenda: New pt Provider notes: No prior encounters Multidisciplinary team needs: SW (new pt) Health Maintenance to be addressed today: lipids, hiv, hep c, A1c Health Maintenance Due Topic Date Due Depression Screening Never done Hepatitis C Screening Never done DTaP/Tdap/Td Vaccines (1 - Tdap) Never done Hepatitis B Vaccines (1 of 3 - 19+ 3-dose series) Never done COVID-19 Vaccine (2022-24 season) Never done (end precharting)- [facility] [address] [facility] [id number] Dept: [phone] Dept Loc: [phone] Visit type: New patient Reason for Visit: Nicotine Dependence Assessment/Plan 1. Alcohol use disorder Assessment & Plan: Chronic, uncontrolled. Hx of DT and multiple hospitalizations of withdrawal per patient. Patient currently residing of [place] [facility], however inquiring about more terminal gauger sobriety options. Let with multidisciplinary team including [facility] and SW for resources and recommendations. Medically, will obtain CBC with folate and B12 to r/o pernicious anemia, and CMP for kidney and liver function. Thiamine supplement sent to pharmacy. Orders: - Comprehensive metabolic panel - CBC - Vitamin B12 - Folate - thiamine (Vitamin B-1) 100 MG tablet; Take 1 tablet (100 mg) by mouth daily., Starting Sun07/27/2023, Until 07/26/2024, Normal 2. Tobacco use disorder Assessment & Plan: Chronic, uncontrolled. Patient currently smoking 1-1.5 packs daily for last 20 years. Patient declined Chantix due to concern for side effects. Patient not good candidate for Bupropion given seizure potential with hx of DT and WD from alcohol. Patient declines patch and is instead opting for lozenge treatment PRN. Orders: - nicotine polacrilex (Commit) 4 MG lozenge; Dissolve 1 lozenge (4 mg) in the mouth every 2 hours as needed for smoking cessation., Starting Sun07/27/2023, Until 08/26/2023 at 2359, Normal 3. Abdominal fullness in left upper quadrant Assessment & Plan: Chronic, uncontrolled. Etiology remains unclear given it has been present for four years per patient. Will obtain US with potential to obtain CT A/P in future. Orders: - US abdomen limited 4. Screening due - HIV-1 and HIV-2 Antigen-Antibody Screen - Hepatitis C antibody - Lipid panel - Hemoglobin A1c 5. Encounter for screening involving social determinants of health (SDoH) Health Maintenance Due Topic Depression Screening Hepatitis C Screening DTaP/Tdap/Td Vaccines (1 - Tdap) Hepatitis B Vaccines (1 of 3 - 19+ 3-dose series) COVID-19 Vaccine (2022-24 season) Follow up in about 4 weeks (around 08/24/2023) for w PCP or available provider for TUD f/up. 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 Alcohol Use Tobacco Use -Would like to quit smoking -Would like info for recovering addiction programs -Drinks alcohol (18 beers minimum for 20 years) -Has had hx of withdrawal where he has had to hospitalized, been to multiple treatment centers -Hx of DT several times as above -Desires sober living community -Smokes 1-1.5 ppd for 20 years -No other recreational drug use Abdominal Fullness -Also has a small knot in his abdomen that hurts when he presses on it for the past 4 years (never been assessed by provider) SurgHx -Adenoidectomy at child (does not remember date) FMHx -Mother: HTN, Heart disease (needed CABG) -Paternal grandfather: brain cancer -Paternal grandmother: Leukemia ( in her 40's) Review of Systems Constitutional: Negative for chills and fever. HENT: Negative for hearing loss and trouble swallowing. Respiratory: Negative for cough and shortness of breath. Cardiovascular: Negative for chest pain and palpitations. Gastrointestinal: Positive for abdominal distention (Feels bloated), abdominal pain and constipation (Having BM's daily, but has to strain more). Negative for blood in stool, diarrhea, nausea and vomiting. Genitourinary: Negative for difficulty urinating and hematuria. Musculoskeletal: Positive for back pain (Occasional (between shoulder blades)). Negative for neck pain. Skin: Negative for rash and wound. Neurological: Negative for dizziness, seizures, light-headedness and headaches. Psychiatric/Behavioral: Positive for dysphoric mood and suicidal ideas (Passive, no intent or plan). Negative for sleep disturbance. The patient is nervous/anxious. Objective BP 111/73 (BP Location: Left arm, Patient Position: Sitting, BP Cuff Size: Adult) Pulse 86 Temp 36.5 C (97.7 F) (Temporal) Resp 16 Ht 5' 4 (1.626 m) Wt 159 lb (72.1 kg) BMI 27.29 kg/m Physical Exam Vitals and nursing note reviewed. Constitutional: Appearance: Normal appearance. HENT: Head: Normocephalic and atraumatic. Right Ear: Tympanic membrane, ear canal and external ear normal. Left Ear: Tympanic membrane, ear canal and external ear normal. Nose: Nose normal. Mouth/Throat: Mouth: Mucous membranes are moist. Pharynx: Oropharynx is clear. Eyes: General: No scleral icterus. Conjunctiva/sclera: Conjunctivae normal. Cardiovascular: Rate and Rhythm: Normal rate and regular rhythm. Pulses: Normal pulses. Heart sounds: Normal heart sounds. No murmur heard. Pulmonary: Effort: Pulmonary effort is normal. No respiratory distress. Breath sounds: Normal breath sounds. No wheezing, rhonchi or rales. Abdominal: General: Bowel sounds are normal. Palpations: Abdomen is soft. There is no hepatomegaly or splenomegaly. Tenderness: There is abdominal tenderness in the periumbilical area and left upper quadrant. There is no guarding or rebound. Negative signs include Molina's sign and McBurney's sign. Musculoskeletal: General: No swelling. Normal range of motion. Cervical back: Neck supple. Skin: General: Skin is warm and dry. Neurological: Mental Status: He is alert. Motor: No weakness. Gait: Gait normal. Psychiatric: Behavior: Behavior normal. Thought Content: Thought content normal. Outpatient Encounter Medications as of 07/27/2023 Medication Sig Dispense Refill nicotine polacrilex (Commit) 4 MG lozenge Dissolve 1 lozenge (4 mg) in the mouth every 2 hours as needed for smoking cessation. 100 lozenge 0 thiamine (Vitamin B-1) 100 MG tablet Take 1 tablet (100 mg) by mouth daily. 30 tablet 11 No facility-administered encounter medications on file as of 07/27/2023. Reid Rankin MD 07/27/23 9:34 AM Please note: Portions of this note may have been completed with a voice recognition program, [email or web address]. Efforts were made to edit the dictations but occasionally words and phrases are mis-transcribed Visit reason: Pt. Would like to quit smoking Additional information: would like physical exam; has knot in stomach and has been hurting when pressed into the last 4 yrs.; feels bloated consistently; info on addiction programs Medications needing to be refilled: No Patient was able to ambulate safely to the examination room. Provider was not notified of possible fall risk. Enrober: not offered, due to no disrobing or intimate exam anticipated PHQ2: negative Suicidal ideation: absent Food insecurity screening: positive Dietitian Therapeutic used: no Teaching Physician Note: Direct Supervision - Modifier GC Resident s history, ROS, and PE reviewed. Vitals: 07/27/23 0923 BP: 111/73 Pulse: 86 Resp: 16 Temp: 36.5 C (97.7 F) Case was discussed with Resident Plan: Recommend US abdomen to evaluate abdominal mass to start. [facility] consult. field coordinator to assist in scheduling as patient does not have a cell phone and staying @ [facility]. I was present for dial portions of the visit and/or performed a history and physical examination of the patient. I discussed and reviewed the resident's note and agree with the documented findings and plan of care. Teaching physician confirmed understanding of plan with patient. Please see resident s note for further details. This service has been performed in part by a resident under the direction of a teaching physician (GC Modifier) Romaine Eubanks DO 07/27/2023 10:21 AM Social Determinants of Health Tobacco Use: High Risk (07/27/2023) Patient History Smoking Tobacco Use: Every Day Smokeless Tobacco Use: Unknown Passive Exposure: Not on file Alcohol Use: Not At Risk (07/27/2023) AUDIT-C Frequency of Alcohol Consumption: Never Average Number of Drinks: Patient does not drink Frequency of Binge Drinking: Never Financial Resource Strain: Medium Risk (07/27/2023) Overall Financial Resource Strain (CARDIA) Difficulty of Paying Living Expenses: Somewhat hard Food Insecurity: Food Insecurity Present (07/27/2023) Hunger Vital Sign Worried About Running Out of Food in the Last Year: Sometimes true Ran Out of Food in the Last Year: Sometimes true Transportation Needs: No Transportation Needs (07/27/2023) PRAPARE - Transportation Lack of Transportation (Medical): No Lack of Transportation (Non-Medical): No Physical Activity: Inactive (07/27/2023) Exercise Vital Sign Days of Exercise per Week: 0 days Minutes of Exercise per Session: 0 min Stress: No Stress Concern Present (07/27/2023) [employer] - Occupational Stress Questionnaire Feeling of Stress : Not at all Social Connections: Moderately Isolated (07/27/2023) Social Connection and Isolation Panel [NHANES] Frequency of Communication with Friends and Family: Never Frequency of Social Gatherings with Friends and Family: More than three times a week Attends Temple Services: More than 4 times per year Active Member of Clubs or Organizations: No Attends Club or Organization Meetings: Never Marital Status: Never Intimate Partner Violence: Not At Risk (07/27/2023) Humiliation, Afraid, Rape, and Kick questionnaire Fear of Current or Ex-Partner: No Emotionally Abused: No Physically Abused: No Sexually Abused: No Depression: Mild depression (07/27/2023) PHQ-9 PHQ-9 Score: 6 Housing Stability: High Risk (07/27/2023) Housing Stability Vital Sign Unable to Pay for Housing in the Last Year: No Number of Places Lived in the Last Year: 2 Unstable Housing in the Last Year: Yes Utilities: Not At Risk (07/27/2023) [facility] Utilities Threatened with loss of utilities: No [facility] CONSULT NOTE: Patient is a 43 y.o. male. Met with patient per provider request. Pt requesting consult to discuss potential treatment providers for follow up after he completes the [facility] program. Pt indicated he was six months sober and wants to have a plan for later that will support his ongoing sobriety. INTERVENTION: [facility] actively listened and provided support. Information was provided to pt including [facility], [facility], and [facility] that may offer sober living options. Addiction Therapist also provided pt with contact information if he had any additional questions, he could reach this Addiction Therapist for further info. Pt appreciated information and plans to follow up. [facility] CONSULT NOTE: Patient is a 43 y.o. male. Met with patient per provider request. Pt requested resources for sober living as he is currently at the [facility] and looking to establish a solid recovery plan following his stay there. Acknowledged some low level depression while reporting that he has been sober for six months. Mental Status Examination: Appearance: eye contact good, grooming moderately kept, and well developed, well nourished Behavior/Motor: Pleasant, Cooperative, and Interactive Speech: Appropriate, Clear, and Normal pace Mood: normal Affect: Congruent with mood and topic of conversation Hallucinations: Absent Thought processes: Goal-directed Thought content: No evidence of psychosis/delusions Insight: Good Judgement: Good Sleep: Not assessed by [facility] Appetite: Not assessed by [facility] Homicide: no Suicide: No specific plan to harm self Suicide Assessment: Acknowledged passive fleeting thoughts only on PHQ 9. Pt presented as forward thinking, future focused, and engaged in his tx INTERVENTION: [facility] actively listened and provided support. Pt spoke with this [facility] as well as Bill Underwood regarding resources both outpatient programming and sober living options in the area. Bill provided pt with contact information encouraging him to explore options proactively to provide seamless transition for continuum of care. I have reviewed resident documentation and agree with plan. Romaine Eubanks DO 07/27/23 2:19 PM documented in this encounter [facility] Health Evaluation note Diagnosis Alcohol use disorder- Primary Tobacco use disorder Abdominal fullness in left upper quadrant Screening due Encounter for screening involving social determinants of health (SDoH) documented in this encounter [facility] HealthEvaluation note* Diagnosis Alcohol use disorder- Primary Tobacco use disorder Abdominal fullness in left upper quadrant Screening due Encounter for screening involving social determinants of health (SDoH) documented in this encounter [facility] HealthEvaluation note* Diagnosis Abdominal fullness in left upper quadrant documented in this encounter [facility] HealthEvaluation note* Diagnosis Tobacco use disorder- Primary Constipation by delayed colonic transit Slow transit constipation Mixed hyperlipidemia documented in this encounter [facility] HealthEvaluation note* Diagnosis Tobacco use disorder- Primary Constipation by delayed colonic transit Slow transit constipation Mixed hyperlipidemia documented in this encounter [facility] HealthEvaluation note* Diagnosis Alcohol use disorder- Primary Tobacco use disorder Abdominal fullness in left upper quadrant Screening due Encounter for screening involving social determinants of health (SDoH) Tobacco use disorder- Primary Constipation by delayed colonic transit Slow transit constipation Mixed hyperlipidemia Alcohol withdrawal with inpatient treatment, uncomplicated (HCC)- Primary Alcohol abuse with withdrawal (HCC) Severe alcohol use disorder (HCC) documented in this encounter [facility] Health Summary Purpose Family History No Family History Records FoundNo Family History Records FoundNo Family History Records Found Advance Directives No Advanced Directives Records FoundNo Advanced Directives Records FoundNo Advanced Directives Records Found Additional Source Comments (unrecognized sect ion and content) No Status Records FoundNo Status Records FoundNo Status Records Found INFORMATION SOURCE (unrecogn ized section and content) DATE CREATED AUTHOR 09/14/2020 [facility] DATE CREATED AUTHOR AUTHOR'S ORGANIZ ATION 09/12/2024 [facility] DATE CREATED AUTHOR AUTHOR'S ORGANIZ ATION 01/26/2025 [facility] Reason for Visit (unrecogniz ed section and content) Reason Comments Nicotine Dependence Reason Comments Follow-up Reason Comments Alcohol Problem Pt presents to the [facility] stating he is an alcoholic and needs detox. Pt admits to drinking more than a 12 pack per day. States his las drink was 1 hour ago Specialty Diagnoses / Procedures Referred By Contac t Referred To Contact Diagnoses Alcohol abuse with withdrawal (HCC) Procedures .. Barrett Cedillo MD [address] [place] [address] Phone: tel: fax: [facility] [address] [place] [address] Phone: tel: Referral ID Status Reason Start Date Expiration Date Visits Re quested Visits Authorized [id number] 1 1 Care Teams (unrecognized sec tion and content) [employer] Relationship Specialty Start Date End Date Reid Rankin MD [address] [address] PCP - General Family Medicine 07/27/23 [employer] Relationship Specialty Start Date End Date Reid Rankin MD [address] [address] PCP - General Family Medicine 07/27/23 [employer] T[employer] Relationship Specialty Start Date End Date Reid Rankin MD [address] [address] PCP - General Family Medicine 07/27/23 [employer] Tender Relationship Specialty Start Date End Date Reid Rankin MD [address] [address] PCP - General Family Medicine 07/27/23 [employer] T[employer] Relationship Specialty Start Date End Date Reid Rankin MD [address] [address] PCP - General Family Medicine 07/27/23 [employer] Tender Relationship Specialty Start Date End Date Reid Rankin MD [address] [address] PCP - General Family Medicine 07/27/23 Scheduled Active and Recently Administ ered Medications (unrecognized section and content) Medication Order 08/31/2024 09/01/2024 09/02/2024 folic acid (Folvite) tablet 1 mg 1 mg, Oral, Daily, First dose on Sun08/29/24 at 1640 0839 (Given - Provider: Kaylah Mccullough RN) 1008 (Given - Provider: Mary Ann Nieves RN) 0809 (Given - Provider: Rosetta Monsalve, ONEL) gabapentin (Neurontin) capsule 300 mg 300 mg, Oral, Every 8 hours, First dose on Sun08/29/24 at 1640, Hold for excessive sedation 0011 (Given - Provider: Flower Art RN)0840 (Given - Provider: Kaylah Mccullough RN)1719 (Given - Provider: Kaylah Mccullough, ONEL)2353 (Given - Provider: Flower Art RN) 1008 (Given - Provider: Mary Ann Nieves RN)1655 (Given - Provider: Mary Ann Nieves RN) 0007 (Given - Provider: Melanie Langley RN)0809 (Given - Provider: Rosetta Monsalve, ONEL) PHENobarbital tablet 32.4 mg (COMPLETED) 32.4 mg, Oral, Every 6 hours, First dose on Sun08/31/24 at 1100, For 4 doses 1206 (Given - Provider: Kaylah Mccullough RN)1721 (Given - Provider: Kaylah Mccullough RN)2317 (Given - Provider: Flower Art RN) 0554 (Given - Provider: Flower Art RN) PHENobarbital tablet 64.8 mg (CANCELED)(Linked Group 1) 64.8 mg, Oral, Every 4 hours, First dose on Sun08/30/24 at 1640, For 6 doses, Hold for excessive sedation 0011 (Given - Provider: Flower Art RN)0415 (Given - Provider: Flower Art RN)0839 (Given - Provider: Kaylah Mccullough RN) thiamine (Vitamin B1) tablet 100 mg 100 mg, Oral, 3 times daily, First dose on Sun08/29/24 at 1640 0839 (Given - Provider: Kaylah Mccullough RN)1320 (Given - Provider: Kaylah Mccullough RN)2132 (Given - Provider: Flower Art RN) 1008 (Given - Provider: Mary Ann Nieves RN)1501 (Given - Provider: Mary Ann Nieves RN)2053 (Given - Provider: Melanie Langley RN) 0809 (Given - Provider: Rosetta Monsalve, RN)1400 (Canceled Entry - Provider: Automatic Discharge Provider - Comment: Automatically canceled at discontinue of medication order) traZODone (Desyrel) tablet 100 mg (CANCELED) 100 mg, Oral, Nightly, First dose on Sun08/29/24 at 2100 2316 (Given - Provider: Flower Art, ONEL) PRN Medication Order 08/31/2024 09/01/2024 09/02/2024 dicyclomine (Bentyl) tablet 10 mg 10 mg, Oral, 3 times daily PRN, colic, Starting on Sun08/29/24 at 1639 hydrOXYzine pamoate (Vistaril) capsule 50 mg 50 mg, Oral, Every 6 hours PRN, anxiety, Starting on Sun08/29/24 at 1639 0318 (Given - Provider: Flower Art, ONEL) loperamide (Imodium) capsule 2 mg 2 mg, Oral, 4 times daily PRN, diarrhea, Starting on Sun08/29/24 at 1639, After each loose stool nicotine polacrilex (Nicorette) gum 2 mg 2 mg, Mouth/Throat, As needed, smoking cessation, Starting on 08/30/24 at 1649 1239 (Given - Provider: Kaylah Mccullough RN)1722 (Given - Provider: Kaylah Mccullough RN)2132 (Given - Provider: Flower Art RN) 1303 (Given - Provider: Mary Ann Nieves, ONEL)1505 (Given - Provider: Mary Ann Nieves RN)2052 (Given - Provider: Melanie Langley RN) 0511 (Given - Provider: Melanie Langley RN)0743 (Given - Provider: Rosetta Monsalve, ONEL)1139 (Given - Provider: Rosetta Monsalve, ONEL) nicotine polacrilex (Nicorette) gum 4 mg 4 mg, Mouth/Throat, Every 1 hour PRN, smoking cessation, nicotine craving, urge to smoke, Starting on 08/30/24 at 2350, Instruct patient to chew into gum, then place between the cheek and gum to enhance absorption. To increase chances of quitting, recommended to chew and park at least 9 pieces per day in the first 6 weeks of cessation., Indications: Nicotine Dependence ondansetron (Zofran) tablet 4 mg 4 mg, Oral, Every 6 hours PRN, nausea, vomiting, Starting on Sun08/29/24 at 1639 PHENobarbital tablet 32.4 mg 32.4 mg, Oral, Every 6 hours PRN, alcohol withdrawal (only give if CIWA > 6), Starting on Sun09/01/24 at 0906 senna-docusate sodium (Senokot-S) 8.6-50 MG tablet 2 tablet 2 tablet, Oral, Daily PRN, constipation, Starting on Sun08/29/24 at 1639 traZODone (Desyrel) tablet 100 mg 100 mg, Oral, Nightly PRN, sleep, Starting on Sun09/01/24 at 1400 0007 (Given - Provider: Melanie Langley RN) Linked Groups Order Group 1: PHENobarbital tablet 97.2 mg () 97.2 mg, Oral, Every 4 hours, First dose on Sun08/29/24 at 1640, For 6 doses, Hold for excessive sedation Followed by PHENobarbital tablet 64.8 mg (CANCELED)Jump to med 64.8 mg, Oral, Every 4 hours, First dose on 08/30/24 at 1640, For 6 doses, Hold for excessive sedation Followed by PHENobarbital tablet 32.4 mg (CANCELED) 32.4 mg, Oral, Every 4 hours, First dose on 08/31/24 at 1640, For 6 doses, Hold for excessive sedation Followed by PHENobarbital tablet 16.2 mg (CANCELED) 16.2 mg, Oral, Every 4 hours, First dose on 09/01/24 at 1640, For 6 doses, Hold for excessive sedation FOR RECORDS PERTAINING TO PATIENTS WHO ARE OR HAVE BEEN ENROLLED IN A CHEMICAL DEPENDENCY/SUBSTANCEABUSE PROGRAM, SOME INFORMATION MAY BE OMITTED. This clinical summary was aggregated from multiple sources. Caution should be exercised in using it in the provision of clinical care. This summary normalizes information from multiple sources, and as a consequence, information in this document may materially change the coding, format and clinical context of patient data. In addition, data may be omitted in some cases. CLINICAL DECISIONS SHOULD BE BASED ON THE PRIMARY CLINICAL RECORDS. [employer] [facility]. provides no warranty or guarantee of the accuracy or completeness of information in this document.
--- NOTE | 2025-01-28 18:31 | CM.ED ---
Social Work Patient presented to ED requesting detox from alcohol. Treatment navigator notified of admission to [facility]. Deja Crisostomo, CORPORATE SECURITY OFFICER, [employer]WN [employer]OWER REPAIRER
[2025-01-28 18:33] LABS: Alcohol, Blood (Medical)-Serum 175.0 mg/dL (<=10.0); Anion Gap 12 (5-15); BUN 7 mg/dL (4-19); BUN/Creat Ratio 12.2 RATIO (10-20); Calcium,Total 8.6 mg/dL (7.6-11.0); Carbon Dioxide 23.1 mmol/L (21.0-32.0); Chloride 104 mmol/L (98-108); Estimated Creatinine Clearance 132.93 ml/min (50-250); Glucose 89 mg/dL (70-99); Potassium 3.7 mmol/L (3.3-5.1)
[2025-01-28 18:55] LABS: AST(SGOT) 113 U/L (<=37); Alanine Aminotransfer ALT/SGPT 156 U/L (<=46); Albumin, Serum 3.8 g/dL (3.5-5.0); Alkaline Phosphatase 103 U/L (40-129); Bilirubin, Direct 0.14 mg/dL (0.00-0.30); Globulin 2.5 g/dL (2.2-4.2)
[2025-01-28 19:17] VITALS: BP 120/69; PULSE 81; RESP 16; TEMP 36.6; O2SAT 99; BMI 23.5
[2025-01-29 00:20] VITALS: BP 117/72; PULSE 92; RESP 18; TEMP 36.6; O2SAT 99
[2025-01-29] MEDS: hydrOXYzine PAM 25 MG Capsule 50 MG PO (02:29)
[2025-01-29 04:20] VITALS: BP 115/87; PULSE 68; RESP 18; TEMP 36.4; O2SAT 100
[2025-01-29 07:35] VITALS: O2SAT 97
--- NOTE | 2025-01-29 08:12 | PCM.PN.HOSP ---
Reason for Visit Chief Complaint: Alcohol detox Subjective Subjective Patient is a 45-year-old gentleman with history of chronic alcohol dependence discharged on 01/26/2025 with plans for patient to transition to an inpatient rehab unit following stay [facility] he apparently relapsed after meeting group of friends. Presented back to the emergency department on 01/28/2025 Objective Data Objective Data Vital Signs: Vital Signs Temp Pulse Resp BP Pulse Ox O2 Del Method 97.5 F L 68 18 115/87 H 97 Room Air 01/29/25 04:20 01/29/25 04:20 01/29/25 04:20 01/29/25 04:20 01/29/25 07:35 01/29/25 07:35 Oxygen Delivery Method Room Air Weight: 62.142 kg Body Mass Index (BMI) 23.5 Intake & Output: Intake and Output for Last 24 Hours 01/27/25 01/28/25 01/29/25 23:59 23:59 23:59 Intake Total 1000 / 1000 Balance 1000 / 1000 Lab / Micro Data 01/28/25 17:50 01/28/25 17:50 Labs: Laboratory Results - last 24 hr 01/28/25 17:50: WBC 7.2, RBC 4.20 L, Hgb 14.1, Hct 40.6, MCV 96.7 H, MCH 33.6 H, MCHC 34.7, RDW Std Deviation 43.8, RDW Coeff of Mary 12.3, Plt Count 338, MPV 9.3, Immature Gran % (Auto) 0.400, Neut % (Auto) 47.6, Lymph % (Auto) 35.4, [place] % (Auto) 7.5, Eos % (Auto) 7.8 H, Baso % (Auto) 1.3 H, Absolute Neuts (auto) 3.4, Absolute Lymphs (auto) 2.55, Nucleated RBC % 0, Sodium 139, Potassium 3.7, Chloride 104, Carbon Dioxide 23.1, Anion Gap 12, BUN 7, Creatinine 0.60 L, Estim Creat Clear Calc 132.93, Est GFR (MDRD) Non-Af 123, BUN/Creatinine Ratio 12.2, Glucose 89, Calcium 8.6, Total Bilirubin 0.19, Direct Bilirubin 0.14, AST 113 H, ALT 156 H, Alkaline Phosphatase 103, Total Protein 6.3, Albumin 3.8, Globulin 2.5, Ethyl Alcohol 175.0 H Assessment & Plan Assessment/Plan (1) Chronic alcohol abuse: (2) Acute alcohol intoxication: QUALIFIERS: Complication of substance-induced condition: uncomplicated Qualified Code(s): F10.920 - Alcohol use, unspecified with intoxication, uncomplicated (3) Desire for detoxification: PLAN: Plan Patient is a 45-year-old gentleman with history of chronic alcohol dependence discharged on 01/26/2025 with plans for patient to transition to an inpatient rehab unit following stay at [facility] he apparently relapsed after meeting group of friends. Presented back to the emergency department on 01/28/2025 1. Acute alcohol withdrawal - Patient has been admitted for treatment with phenobarb taper in addition to adjuvant medications including gabapentin, Bentyl, hydroxyzine and clonidine as needed for alcohol withdrawal symptoms. Patient was also placed on thiamine and folic acid, consultation placed to 180 counseling services/addiction medicine to assist with placement in a in an inpatient rehab unit. Patient was discharged on 01/26/2025 and plan was for patient to have transition to an inpatient rehab unit he however relapsed following his discharge 2. Acute transaminitis ? Secondary to chronic alcohol use cessation encouraged 3. Depression with anxiety ? Patient to follow-up with primary care physician for subsequent treatment 4. Tobacco dependence ? Counseled on cessation, offered nicotine patch for tobacco cravings 5. DVT prophylaxis ? Low risk to encourage daily ambulation, enoxaparin initiated on admission discontinued Time spent in the patient's overall evaluation,decision-making process, review of diagnostic data, adjustment of management, discussion with other providers, nursing nursing and ancillary staff involved in patient's care documentation 38 Minutes Charges/Coding Visit Charges Inpatient E&M: 61605 Subs Hosp L2
[2025-01-29 08:30] VITALS: BP 93/57; PULSE 58; RESP 14; TEMP 36.6; O2SAT 99
[2025-01-29] MEDS: Thiamine Hydrochloride 100 MG Tablet PO (08:35)
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
--- NOTE | 2025-01-29 10:49 | PCM.DC.SUM ---
Providers Date of Admission: 01/28/25 Date of Discharge: 01/29/25 Primary Care Physician: Jeri Primary Care Phys Reason For Visit: ALCOHOL DETOX Diagnosis Discharge Diagnosis (1) Chronic alcohol abuse: Status: Chronic Code(s): F10.10 - Alcohol abuse, uncomplicated (2) Acute alcohol intoxication: Status: Acute Code(s): F10.929 - Alcohol use, unspecified with intoxication, unspecified Qualifiers: Complication of substance-induced condition: uncomplicated Qualified Code(s): F10.920 - Alcohol use, unspecified with intoxication, uncomplicated (3) Desire for detoxification: Status: Acute Plan Patient is a 45-year-old gentleman with history of chronic alcohol dependence discharged on 01/26/2025 with plans for patient to transition to an inpatient rehab unit following stay at [facility] he apparently relapsed after meeting group of friends. Presented back to the emergency department on 01/28/2025 1. Acute alcohol withdrawal - Patient has been admitted for treatment with phenobarb taper in addition to adjuvant medications including gabapentin, Bentyl, hydroxyzine and clonidine as needed for alcohol withdrawal symptoms. Patient was also placed on thiamine and folic acid, consultation placed to 180 counseling services/addiction medicine to assist with placement in a in an inpatient rehab unit. Patient was discharged on 01/26/2025 and plan was for patient to have transition to an inpatient rehab unit he however relapsed following his discharge ? Patient was discharged to an inpatient facility 2. Acute transaminitis ? Secondary to chronic alcohol use cessation encouraged 3. Depression with anxiety ? Patient to follow-up with primary care physician for subsequent treatment 4. Tobacco dependence ? Counseled on cessation, offered nicotine patch for tobacco cravings 5. DVT prophylaxis ? Low risk to encourage daily ambulation, enoxaparin initiated on admission discontinued Time spent in the patient's overall evaluation,decision-making process, review of diagnostic data, adjustment of management, discussion with other providers, nursing nursing and ancillary staff involved in patient's care documentation 38 Minutes Physical Exam Narrative GENERAL: cooperative HEENT: Atraumatic; normocephalic EYES; Anicteric, Normal Conjunctiva NECK; supple, normal thyroid, RESPIRATORY: Diminished to auscultation CARDIOVASCULAR: Regular S1 S2, GI: soft, normoactive bowel sounds, : No Renal angle tenderness; EXTREMITIES: No edema, no clubbing, MUSCULOSKELETAL: no muscle wasting NEURO: Awake; no lateralizing signs. SKIN: No Rash PSYCH; Flat affect Weight / BMI Weight Weight: 62.142 kg Body Mass Index (BMI) 23.5 ABG / Lab / Microbiology Data 01/28/25 17:50 01/28/25 17:50 Laboratory: Laboratory Results - last 24 hr 01/28/25 17:50: WBC 7.2, RBC 4.20 L, Hgb 14.1, Hct 40.6, MCV 96.7 H, MCH 33.6 H, MCHC 34.7, RDW Std Deviation 43.8, RDW Coeff of Mary 12.3, Plt Count 338, MPV 9.3, Immature Gran % (Auto) 0.400, Neut % (Auto) 47.6, Lymph % (Auto) 35.4, Bryan % (Auto) 7.5, Eos % (Auto) 7.8 H, Baso % (Auto) 1.3 H, Absolute Neuts (auto) 3.4, Absolute Lymphs (auto) 2.55, Nucleated RBC % 0, Sodium 139, Potassium 3.7, Chloride 104, Carbon Dioxide 23.1, Anion Gap 12, BUN 7, Creatinine 0.60 L, Estim Creat Clear Calc 132.93, Est GFR (MDRD) Non-Af 123, BUN/Creatinine Ratio 12.2, Glucose 89, Calcium 8.6, Total Bilirubin 0.19, Direct Bilirubin 0.14, AST 113 H, ALT 156 H, Alkaline Phosphatase 103, Total Protein 6.3, Albumin 3.8, Globulin 2.5, Ethyl Alcohol 175.0 H D/C Instructions Discharge Activity: Return to Normal Activity Call your doctor if you observe: Fever of 101 or Higher, Shortness of breath, Fainting spells and Chest pain DC O2, CPAP, BIPAP Needs Home O2 Discharge instructions: No Meaningful Use Info Meaningful Use Meaningful Use Diagnoses (Choose all that apply): None applicable Discharge Plan Admission Admit Date/Time: 01/28/25 18:01 Attending Provider: Elvin Gaytan Primary Care Provider: Care Physician,No Primary Consulting Providers: Jhonny Trevizo Discharge Orders/Prescriptions Referrals / Follow Up: Care Physician,No Primary [Primary Care Provider, Medical] - Within 1 Month Disposition Disposition (needs filled in before D/C Order can be placed): Inpatient Rehab Unit/Facility Charges/Coding Visit Charges Inpatient E&M: 14212 Disch Hosp >30min
== END 2025-01-29 13:05 ==
LOC: ED 18:06 → MS3 01-29 07:06
PROVIDERS: Admitting Provider Hospitalist; Emergency Provider Emergency Medicine; Visit Provider Internal Medicine
DX: F10.229 Alcohol dependence with intoxication, unspecified (principal); F10.239 Alcohol dependence with withdrawal, unspecified; K70.10 Alcoholic hepatitis without ascites; Z59.00 Homelessness unspecified; F17.210 Nicotine dependence, cigarettes, uncomplicated; F41.8 Other specified anxiety disorders; F17.220 Nicotine dependence, chewing tobacco, uncomplicated; Y90.6 Blood alcohol level of 120-199 mg/100 ml
CPT/HCPCS: 80048; 80076; 82077; 85025; 99221; 99284; A4216; G0378